=== PATIENT | female | born 1960 | race Caucasian/White ===

== ENCOUNTER 2016-12-27 13:37 | Inpatient (IN) | payer MEDICAID, OTHER ==
[2016-12-27 13:58] VITALS: BMI 33.2
--- NOTE | 2016-12-27 15:51 | C.PDOC ---
History Of Present Illness Patient is a 56 year old female, whose PMHx includes diabetes, presents to the Emergency Department for evaluation of sudden onset shortness of breath, and sharp chest pain across the anterior today. Patient states, "I felt my heart working harder than normal, and it was hard to breath" this morning when she was at the [employer]. Pt also admits to numbness to both legs. Pt denies having similar symptoms in the past. Otherwise, denies any headache, fever, chills, cough, back pain, nausea, vomiting, diarrhea, abdominal pain, lower extremity pain/swelling, or any other associated symptoms at this time. History translated from Faroese by son's friend. 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 Pt has history of recent travel from [place]. Time Seen by Provider: 12/27/16 14:37 Chief Complaint (Nursing): Shortness Of Breath History Per: Patient, Family History/Exam Limitations: language barrier (translated by son's friend) Onset/Duration Of Symptoms: Hrs Current Symptoms Are (Timing): Still Present Quality: "Pain" Associated Symptoms: Chest Pain. denies: Fever, Chills, Sweating, Bloody Cough , Productive Cough, Leg/Calf Pain, Ankle/Leg Swelling, Dizziness, Light- headedness, Anxiety, Tingling In Hands Or Face, Musle Spasms In Hands Or Feet Recent travel outside of the [place]: Yes Additional History Per: Family Past Medical History Reviewed: Historical Data, Nursing Documentation, Vital Signs Vital Signs: Last Vital Signs Temp 98.1 F 12/29/16 10:00 Pulse 84 12/29/16 13:38 Resp 35 H 12/29/16 11:20 BP 143/84 12/29/16 12:19 Pulse Ox 94 L 12/29/16 11:20 - Medical History PMH: Diabetes Family History: States: No Known Family Hx - Social History Hx Alcohol Use: No Hx Substance Use: No - Immunization History Hx Tetanus Toxoid Vaccination: No Hx Influenza Vaccination: No Hx Pneumococcal Vaccination: No Review Of Systems Except As Marked, All Systems Reviewed And Found Negative. Constitutional: Negative for: Fever, Chills Cardiovascular: Positive for: Chest Pain. Negative for: Edema, Light Headedness Respiratory: Positive for: Shortness of Breath. Negative for: Cough, Hemoptysis , Sputum Gastrointestinal: Negative for: Nausea, Vomiting, Abdominal Pain, Diarrhea Genitourinary: Negative for: Dysuria, Frequency, Hematuria Musculoskeletal: Negative for: Neck Pain Skin: Negative for: Rash, Bruising Neurological: Positive for: Numbness (bilateral legs). Negative for: Weakness, Headache, Dizziness Physical Exam - Physical Exam Appears: Non-toxic, No Acute Distress, Other (visibly short of breath) Skin: Normal Color, Warm, Dry, No Rash Head: Atraumatic, Normacephalic Eye(s): bilateral: Normal Inspection, EOMI Oral Mucosa: Moist Neck: Normal ROM, Supple Chest: Symmetrical, No Tenderness Cardiovascular: Rhythm Regular, No Murmur Respiratory: No Accessory Muscle Use, Rales (throughout bilateral), No Rhonchi, No Wheezing Gastrointestinal/Abdominal: Soft, No Tenderness Extremity: Normal ROM, No Tenderness, Pedal Edema (+0.5 bilateral) Neurological/Psych: Oriented x3, Normal Speech, Normal Cognition ED Course And Treatment - Laboratory Results Result Diagrams: 12/29/16 07:01 12/29/16 07:01 ECG: Interpreted By Me, Viewed By Me ECG Rhythm: Atrial Fibrillation ECG Interpretation: No Acute Changes Interpretation Of ECG: No ST elevation or depression. Rate From EC (bpm) O2 Sat by Pulse Oximetry: 94 Critical Care Time - Critical Care Note Total Time (in mins): 55 Documented critical care: time excludes all time spent performing seperately billable procedures. Medical Decision Making Medical Decision Making: Impression: 56 y/o female presents with sudden onset of shortness of breath, and chest pain since this morning. Differential Diagnosis: Pneumonia, NM, CHF, vs. PE Plan: * Blood work * EKG * CXR * Reassess Patient with pulmonary congestion, A Fib, positive trops. Given ASA, Lovanox, Cardizem X 1 dose, Lasix, requested Vapotherm. Spoke with Cardiology donor specialist, Dr. Robbins who requested Lovanox, Lasix, Coreg PO , Echo in AM, possible Cath in AM, Progress note: On re-evaluation, patient is resting comfortably in bed. Oxygen saturation, and breath sounds have improved. Patient remains alert and oriented x 3. Disposition Discussed With : John Osborn Doctor Will See Patient In The: Hospital Counseled Patient/Family Regarding: Studies Performed - Disposition Disposition: HOSPITALIZED Disposition Time: 17:31 Condition: GUARDED - Clinical Impression Clinical Impression: Dyspnea, CHF (congestive heart failure), NSTEMI (non-ST elevated myocardial infarction) - Scribe Statement The provider has reviewed the documentation as recorded by the Vilmaibe Delia Osborn All medical record entries made by the Scribe were at my direction and personally dictated by me. I have reviewed the chart and agree that the record accurately reflects my personal performance of the history, physical exam, medical decision making, and the department course for this patient. I have also personally directed, reviewed, and agree with the discharge instructions and disposition. Decision To Admit - Pt Status Changed To: Hospital Disposition Of: Inpatient - Admit Certification Admit to Inpatient:: After my assessment, the patient will require hospitalization for at least two midnights. This is because of the severity of symptoms shown, intensity of services needed, and/or the medical risk in this patient being treated as an outpatient. - InPatient: Physician Admission Certification: I certify that this patient requires 2 or more midnights of care for the following reason:: NSTEMI - . Bed Request Type: Telemetry Admitting Physician: Dwayne Soler Patient Diagnosis: Dyspnea, CHF (congestive heart failure), NSTEMI (non-ST elevated myocardial infarction)
[2016-12-27 16:05] LABS: BASO % 0.3 % (0.0-2.0); EOS # 0.1 K/uL (0.0-0.7); EOS % 0.9 % (0.0-4.0); LYMPH # 3.4 K/uL (1.0-4.3); LYMPH % 27.5 % (20.0-40.0); MEAN CELL VOLUME 86.7 fL (81.0-99.0); MEAN CORPUSCULAR HEMOGLOBIN 29.3 pg (27.0-31.0); MEAN CORPUSCULAR HGB CONC 33.8 g/dL (33.0-37.0); MEAN PLATELET VOLUME 9.6 fL (7.2-11.7); MONO # 0.6 K/uL (0.0-0.8); MONO % 4.4 % (0.0-10.0); RED CELL DISTRIBUTION WIDTH 14.3 % (11.5-14.5); WHITE BLOOD COUNT 12.5 K/uL (4.8-10.8)
[2016-12-27 16:15] LABS: CHLORIDE 102 mmol/L (98-107); SODIUM 138 mmol/L (132-148)
[2016-12-27 16:16] LABS: POTASSIUM 4.1 mmol/L (3.6-5.2)
[2016-12-27 16:18] LABS: ALB/GLOB RATIO 0.9 (1.0-2.1); ALKALINE PHOSPHATASE 88 U/L (38-126); AST/SGOT 29 U/L (14-36); BILIRUBIN,TOTAL 0.8 mg/dL (0.2-1.3); BLOOD UREA NITROGEN 11 mg/dL (7-17); CARBON DIOXIDE 20 mmol/L (22-30); GFR AFRICAN-AMERICAN > 60; GLUCOSE,RANDOM 215 mg/dL (65-105); TOTAL PROTEIN 7.9 g/dL (6.3-8.3)
[2016-12-27 16:19] LABS: ALT/SGPT 47 U/L (9-52); CALCIUM 9.7 mg/dl (8.6-10.4)
[2016-12-27 16:37] LABS: VENOUS BLOOD GAS BASE EXCESS -1.3 mmol/L (0.0-2.0); VENOUS BLOOD GAS PCO2 40 mmHg (40-60); VENOUS BLOOD PH 7.38 (7.32-7.43)
[2016-12-27] MEDS ORDERED: Enoxaparin 40 mg Syringe SC STA (17:04)
[2016-12-27] MEDS ORDERED: Enoxaparin 80 mg Syringe SC ONE (17:30)
--- NOTE | 2016-12-27 17:56 | RAD ---
PROCEDURE: CHEST RADIOGRAPH, 1 VIEW HISTORY: SOB COMPARISON: None available. FINDINGS: LUNGS: Moderate pulmonary vascular congestion at the mid and lower portion of the lungs. Findings suspicious for mild pulmonary edema. The differential diagnosis includes less likely bilateral lower lobe infectious process. PLEURA: There is blunting of both costophrenic angles. CARDIOVASCULAR: The cardiac silhouette is enlarged. OSSEOUS STRUCTURES: No significant abnormalities. VISUALIZED UPPER ABDOMEN: Normal. OTHER FINDINGS: None. IMPRESSION: Findings suspicious for mild pulmonary edema. Correlate clinically for CHF. Baseline portable chest x-ray.
--- NOTE | 2016-12-27 18:08 | CP.PCM.HP ---
History of Present Illness - History of Present Illness History of Present Illness: Medicine Note for Dr. Soler CC: SOB HPI: 56 F with PMHx of NIDM, presents to the ED with SOB and sharp chest pain. As per son she started to have this pain early this morning when she was at [employer]. She felt that her heart was racing faster. She denied any previous symptoms of this. Patient just returned from recent travel from [place]. Her chest pain and SOB became so severe she was brought to the ED. Admitted to SOB, chest pain, nausea, diaphoresis, weakness, decrease in sensation. Denied fever, chills, headache, abdominal pain, v/d/c, or urinary symptoms. In ED: CBC, EKG, EDUARDO, CXR - were ordered. Patient was in Atrial Fibrillation on EKG: @ 120BPM, with positive troponins, and elevated BNP. Patient was given ASA, Lovanox, Cardizem X 1 dose, Lasix, requested Vapotherm. Dr. Robbins called. Orders placed for Lovenox, Lasix, Coreg PO, Echo in AM, possible Cath in AM. PMHx: NIDM PSHx: Denied Meds: Metformin All: NKDA SHx: Denied x 3 FHx: Unremarkable PMD: None Present on Admission - Present on Admission Any Indicators Present on Admission: No Past Patient History - Past Social History Smoking Status: Never Smoked - ENDOCRINE/METABOLIC Hx Diabetes Mellitus Type 2: Yes - PSYCHIATRIC Hx Substance Use: No - SURGICAL HISTORY Hx Surgeries: Yes - ANESTHESIA Hx Anesthesia: Yes Hx Anesthesia Reactions: No Meds Allergies/Adverse Reactions: Allergies Allergy/AdvReac Type Severity Reaction Status Date / Time No Known Allergies Allergy Verified 12/27/16 13:56 Physical Exam - Constitutional Appears: Toxic, No Acute Distress - Head Exam Head Exam: NORMAL INSPECTION, NORMOCEPHALIC - Eye Exam Eye Exam: EOMI, Normal appearance, PERRL Pupil Exam: NORMAL ACCOMODATION - ENT Exam ENT Exam: Mucous Membranes Dry - Respiratory Exam Respiratory Exam: Rales, NORMAL BREATHING PATTERN - Cardiovascular Exam Cardiovascular Exam: Tachycardia, Irregular Rhythm - GI/Abdominal Exam GI & Abdominal Exam: Normal Bowel Sounds, Soft. absent: Distended, Tenderness - Extremities Exam Extremities exam: Positive for: normal inspection, pedal edema, pedal pulses present. Negative for: tenderness - Neurological Exam Neurological exam: Alert, CN II-XII Intact, Oriented x3 - Psychiatric Exam Psychiatric exam: Anxious, Normal Affect, Normal Mood - Skin Skin Exam: Diaphoretic, Warm Results - Vital Signs Recent Vital Signs: Last Vital Signs Temp 99.3 F 12/27/16 16:33 Pulse 115 H 12/27/16 17:38 Resp 26 H 12/27/16 17:51 BP 119/65 12/27/16 17:38 Pulse Ox 97 12/27/16 17:51 - Labs Result Diagrams: 12/27/16 15:40 12/27/16 16:12 Assessment & Plan - Assessment and Plan (Free Text) Plan: New Onset Atrial Fibrillation * EKG: Atrial Fibrillation @ 120BPM, was given ASA, Lovenox, Cardizem 10mg IVP x1 dose, and Lasix * Patient started on Therapeutic Lovenox 80units SC Q12H * Cardizem drip 3mls/hr * F/U TSH, T4 NSTEMI * EKG: Atrial Fibrillation @ 120BPM, no ST elevations * 1st Troponin 0.1340, F/U EDUARDO x2, EKG x2 * Therapeutic Lovenox 80units SC Q12H * ASA 81mg PO daily, Crestor 20mg PO QHS * Cardiology consulted- Dr. Robbins - help appreciated * Pending Cardiac Cath * F/U Lipid Panel New Onset CHF * BNP: 1530 * Lasix 20mg IVP BID * F/U AM CXR PA/Lateral * F/U ECHO Cardiac Cath Hx of DM * Accuchecks * ISS-medium * Diabetic Diet with 2grm Na, fluid restriction * F/U HBGA1C Prophylactic Measures * GI PPX: 40mg PO daily * DVT PPX: SCDs, Lovenox 80units SC Q12H * HHD, NPO tonight for possible cardiac cath tomorrow DW Cy Chaudhari DO, PGY-1
[2016-12-27 21:14] LABS: T4 9.57 ug/dL (5.5-11.0)
[2016-12-27 21:28] LABS: THYROID STIMULATING HORMONE 1.01 mIU/L (0.46-4.68)
[2016-12-27] MEDS: (Novolin R) Insulin Human Regular 100 units/ml vial SC SCH (23:03)
[2016-12-28] MEDS: Enoxaparin 80 mg Syringe SC SCH ×3 (04:04→23:00)
[2016-12-28 08:04] LABS: BASO % 0.3 % (0.0-2.0); EOS # 0.1 K/uL (0.0-0.7); EOS % 1.3 % (0.0-4.0); HEMATOCRIT 39.5 % (34.0-47.0); LYMPH # 2.7 K/uL (1.0-4.3); LYMPH % 31.8 % (20.0-40.0); MEAN CORPUSCULAR HEMOGLOBIN 29.3 pg (27.0-31.0); MEAN CORPUSCULAR HGB CONC 34.1 g/dL (33.0-37.0); MEAN PLATELET VOLUME 9.1 fL (7.2-11.7); MONO # 0.4 K/uL (0.0-0.8); MONO % 4.9 % (0.0-10.0); NRBC % 0.1 % (0.0-2.0); RED CELL DISTRIBUTION WIDTH 14.3 % (11.5-14.5); WHITE BLOOD COUNT 8.5 K/uL (4.8-10.8)
[2016-12-28] MEDS: (Novolin R) Insulin Human Regular 100 units/ml vial SC SCH ×4 (08:25→23:00)
[2016-12-28 08:28] LABS: CHLORIDE 102 mmol/L (98-107); POTASSIUM 3.5 mmol/L (3.6-5.2); SODIUM 137 mmol/L (132-148)
[2016-12-28 08:30] LABS: ALB/GLOB RATIO 0.9 (1.0-2.1); AST/SGOT 23 U/L (14-36); BILIRUBIN,TOTAL 0.9 mg/dL (0.2-1.3); CARBON DIOXIDE 26 mmol/L (22-30); CHOLESTEROL 170 mg/dL (0-199); GFR AFRICAN-AMERICAN > 60; TOTAL PROTEIN 7.2 g/dL (6.3-8.3)
[2016-12-28 08:31] LABS: ALKALINE PHOSPHATASE 83 U/L (38-126); ALT/SGPT 45 U/L (9-52); BLOOD UREA NITROGEN 11 mg/dL (7-17); CALCIUM 9.4 mg/dl (8.6-10.4); GLUCOSE,RANDOM 159 mg/dL (65-105); MAGNESIUM 1.6 mg/dL (1.6-2.3); PHOSPHOROUS 4.3 mg/dL (2.5-4.5)
[2016-12-28] MEDS: Pantoprazole 40 mg EC Tab PO SCH (10:09)
--- NOTE | 2016-12-28 10:45 | CP.PCM.PN ---
Subjective - Date & Time of Evaluation Date of Evaluation: 12/28/16 Time of Evaluation: 10:39 - Subjective Subjective: POST CATH NOTE Proc: LHC Cor arteriogram LV gram Prelim Results LM - normal LAD - 50% mid - LAD LCx - 30% mid - Cx RCA - dominant vessel; 40% prox-PDA; 60% distal PDA LVgram EF =70% no gradient no MR IMP: Non-obstructive CAD nL LV systolic function Plan: Medical therapy w/ ASA, statins. beta-blockers Objective - Vital Signs/Intake and Output Vital Signs (last 24 hours): Temp Pulse Resp BP Pulse Ox 97.0 F L 128 H 20 128/87 96 12/28/16 08:39 12/28/16 08:39 12/28/16 08:39 12/28/16 10:10 12/28/16 08:39 Intake and Output: 12/28/16 12/28/16 06:59 18:59 Intake Total 21 Balance 21 - Medications Medications: Current Medications Aspirin (Aspirin Chewable) 81 mg PO DAILY [facility] Last Admin: 12/28/16 10:09 Dose: 81 mg Enoxaparin Sodium (Lovenox) 80 mg SC Q12 [facility] Last Admin: 12/28/16 10:09 Dose: 80 mg Furosemide (Lasix) 20 mg IVP BID [facility] Last Admin: 12/28/16 10:10 Dose: 20 mg Diltiazem HCl 125 mg/ Sodium (Chloride) 125 mls @ 3 mls/hr IV .Q24H [facility] PRN Reason: 3 MG/HR Last Admin: 12/27/16 19:07 Dose: 3 mls/hr Insulin Human Regular (Novolin R) 0 unit SC ACHS [facility] PRN Reason: Protocol Last Admin: 12/28/16 08:25 Dose: 1 unit Pantoprazole Sodium (Protonix Ec Tab) 40 mg PO DAILY [facility] Last Admin: 12/28/16 10:09 Dose: 40 mg Rosuvastatin Calcium (Crestor) 20 mg PO HS [facility] Last Admin: 12/27/16 23:02 Dose: 20 mg - Labs Labs: 12/28/16 07:53 12/28/16 07:53
[2016-12-28] MEDS ORDERED: Metoprolol 1 mg/ml Inj IVP ONE ×2 (10:47→12:10)
--- NOTE | 2016-12-28 12:54 | RAD ---
HISTORY: CHF, pulm edema COMPARISON: Comparison made with prior study 12/29/2016 TECHNIQUE: Chest PA and lateral FINDINGS: LUNGS: Persistent mild but slightly improved pulmonary vascular congestion and bibasilar atelectasis and/or infiltrates. PLEURA: No significant pleural effusion identified. No pneumothorax apparent. CARDIOVASCULAR: Heart size is unchanged. OSSEOUS STRUCTURES: No significant abnormalities. VISUALIZED UPPER ABDOMEN: Normal. OTHER FINDINGS: None. IMPRESSION: Persistent mild but slightly improved pulmonary vascular congestion and bibasilar atelectasis and/or infiltrates.
[2016-12-28] MEDS ORDERED: Tramadol 25 mg PO PRN (16:36)
--- NOTE | 2016-12-28 20:35 | CP.PCM.PN ---
Subjective - Date & Time of Evaluation Date of Evaluation: 12/28/16 Time of Evaluation: 20:33 - Subjective Subjective: PGY1 Note for Dr. Antonette Hamilton OMS-3 Translated HPI: Patient seen and examined at bedside. Doing well. Feels much better now that her heart rate has slowed down. Complaining of pain in her R. shoulder for several months to the point where she is unable to use it. Family at bedside concerend about well being of patient. Had extensive conversation with patient and family about the causes of her condition and how the medicine would effectively help her. Explained in detail the findings of the cardiac cath. Denies N/V/CP/SOB/F/Chills. Objective - Vital Signs/Intake and Output Vital Signs (last 24 hours): Temp Pulse Resp BP Pulse Ox 98.5 F 83 20 100/60 95 12/28/16 18:54 12/28/16 18:54 12/28/16 18:54 12/28/16 18:54 12/28/16 18:54 Intake and Output: 12/28/16 12/29/16 18:59 06:59 Intake Total 281 Output Total 0 Balance 281 - Medications Medications: Current Medications Aspirin (Aspirin Chewable) 81 mg PO DAILY [facility] Last Admin: 12/28/16 10:09 Dose: 81 mg Diltiazem HCl (Cardizem) 60 mg PO Q6 [facility] Enoxaparin Sodium (Lovenox) 80 mg SC Q12 [facility] Last Admin: 12/28/16 10:09 Dose: 80 mg Furosemide (Lasix) 20 mg IVP BID [facility] Last Admin: 12/28/16 10:10 Dose: 20 mg Diltiazem HCl 125 mg/ Sodium (Chloride) 125 mls @ 5 mls/hr IV .Q24H [facility] PRN Reason: 5 MG/HR Last Admin: 12/28/16 20:05 Dose: 5 mls/hr Insulin Human Regular (Novolin R) 0 unit SC ACHS [facility] PRN Reason: Protocol Last Admin: 12/28/16 17:53 Dose: 3 unit Metoprolol Tartrate (Lopressor) 5 mg IVP Q4 PRN PRN Reason: Heart rate Pantoprazole Sodium (Protonix Ec Tab) 40 mg PO DAILY [facility] Last Admin: 12/28/16 10:09 Dose: 40 mg Pneumococcal Polyvalent Vaccine (Pneumovax 23 Vaccine) 0.5 ml IM .ONCE ONE Stop: 12/29/16 10:01 Rosuvastatin Calcium (Crestor) 20 mg PO HS [facility] Last Admin: 12/27/16 23:02 Dose: 20 mg Tramadol HCl (Ultram) 25 mg PO Q8 [facility] - Labs Labs: 12/28/16 07:53 12/28/16 07:53 - Constitutional Appears: Well, Non-toxic, No Acute Distress - Head Exam Head Exam: ATRAUMATIC, NORMAL INSPECTION - Eye Exam Eye Exam: EOMI - ENT Exam ENT Exam: Mucous Membranes Moist - Respiratory Exam Respiratory Exam: Clear to Ausculation Bilateral - Cardiovascular Exam Cardiovascular Exam: Tachycardia, Irregular Rhythm - GI/Abdominal Exam GI & Abdominal Exam: Soft, Normal Bowel Sounds. absent: Distended, Tenderness - Extremities Exam Extremities Exam: absent: Calf Tenderness, Joint Swelling - Neurological Exam Neurological Exam: Alert, Awake, Oriented x3 - Psychiatric Exam Psychiatric exam: Normal Affect, Normal Mood - Skin Skin Exam: Dry, Intact, Normal Color, Warm Assessment and Plan - Assessment and Plan (Free Text) Assessment: New Onset Atrial Fibrillation * EKG: Atrial Fibrillation @ 120BPM, was given ASA, Lovenox, Cardizem 10mg IVP x1 dose, and Lasix * Patient started on Therapeutic Lovenox 80units SC Q12H - F/U Cards reccs for oral anticoag * Cardizem drip 3mls/hr - changed to 10mls/hr and then again to 15mls/hr. Heart rate was controlled in the 80s. Started Oral Cardizem 60mg PO Q6 and instructed the nursing team as well as the night staff to decrease the drip while maintaining BP and a HR above 50 * TSH - 1.01 * T4 - 9.57 NSTEMI * EKG: Atrial Fibrillation @ 120BPM, no ST elevations * 1st Troponin 0.1340, F/U EDUARDO x2, EKG x2 * Therapeutic Lovenox 80units SC Q12H * ASA 81mg PO daily, Crestor 20mg PO QHS * Cardiology consulted- Dr. Robbins - medical tx - ASA, Statin, BB * Cardiac Cath - non obstructive CAD, normal LV systolic function * Lipid Panel * TG - 121 * Cholesterol - 170 * LDL - 119 * HDL - 34 New Onset CHF * BNP: 1530 * Lasix 20mg IVP BID * CXR 12/28 - Improved vascular congestion * Cardiac Cath - non obstructive CAD, normal LV systolic function Hx of DM * Accuchecks * ISS-medium * Diabetic Diet with 2grm Na, fluid restriction * HBGA1C - 8.8 R. Shoulder Pain * Shoulder Xray - F/U * Tramadol 25mg Q8 * Ortho (Chuck) consulted - F/U reccs * PT consulted Prophylactic Measures * GI PPX: 40mg PO daily * DVT PPX: SCDs, Lovenox 80units SC Q12H * HHD
--- NOTE | 2016-12-28 20:45 | CARD ---
APPROVED REPORT EKG Measurement Heart [id number] <Conclusion> Atrial fibrillation with rapid ventricular response Rightward axis Low voltage QRS Abnormal ECG
--- NOTE | 2016-12-28 20:47 | CARD ---
APPROVED REPORT EKG Measurement Heart [id number] <Conclusion> Atrial fibrillation with moderate to rapid ventricular response Septal infarct, age undetermined T wave abnormality, consider inferior ischemia Abnormal ECG
[2016-12-28] MEDS ORDERED: Potassium Chloride 20 mEq ER Tab PO STA (21:44)
[2016-12-28] MEDS: Tramadol 25 mg PO SCH (23:00)
--- NOTE | 2016-12-29 00:17 | CARD ---
APPROVED REPORT EXAM: Two-dimensional and M-mode echocardiogram with Doppler and color Doppler. Other Information Quality : GoodRhythm : Atrial Fibrillation INDICATION Chest Pain Congestive Heart Failure M-Mode DIMENSIONS RVDd1.08 (2.1-3.2cm)Left Atrium (MM)3.82 (2.5-4.0cm) IVSd0.87 (0.7-1.1cm)Aortic Root2.29 (2.2-3.7cm) LVDd4.10 (4.0-5.6cm)Aortic Cusp Exc.1.32 (1.5-2.0cm) PWd0.73 (0.7-1.1cm)FS (%) 51 % LVDs2.01 (2.0-3.8cm)LVEF (%)83 (>50%) Aortic Valve AoV Peak Pqiicspv116.9cm/sAoV VTI45.8cmAO Peak GR.30mmHg LVOT Peak Ddfckfjb486.3cm/sLVOT VTI15.85cmAO Mean GR.15mmHg AI P 1/2 [id number] Mitral Valve MV E Sjrqyubs527.8cm/sMV E Peak Gr.31mmHgMV E Mean Gr.16mmHg MV IOA492qoJ/A ratio0.0MVA (PHT)1.66cm2 TDI E/Lateral E'0.0E/Medial E'0.0 Tricuspid Valve TR Peak Vxwxtsqz508vk/sTR Peak Gr.67bzIbASLS12ckJt LEFT VENTRICLE The left ventricle is normal size. There is normal left ventricular wall thickness. Left ventricle systolic function is normal with Ejection Fraction of 70%. There is normal LV segmental wall motion. No left ventricle thrombus noted on this study. RIGHT VENTRICLE The right ventricle is normal size. The right ventricular systolic function is normal. ATRIA The left atrium is moderately dilated on 2D. The right atrium is moderately dilated on 2D. AORTIC VALVE The aortic valve is mildly to moderately sclerotic. There is mild to moderate aortic regurgitation. There is mild to moderate valvular aortic stenosis. Aortic valve area was not calculated. Maximum pressure gradient is 30 mmHg and mean pressure gradient is 15 mmHg. MITRAL VALVE Mitral annular calcification is moderate to severe. There is no evidence of mitral valve prolapse. There is mild mitral valve stenosis. Calculated mitral valve area is 1.6 cm2 with maximum pressure gradient of 31 mmHg and mean pressure gradient of 16 mmHg. Mitral regurgitation is moderate to severe. TRICUSPID VALVE There is moderate to severe tricuspid regurgitation. Right ventricular systolic pressure is estimated at greater than 60 mmHg. There is moderate-severe pulmonary hypertension. There is no tricuspid valve stenosis. PULMONIC VALVE The pulmonic valve is not well visualized. There is moderate pulmonic valvular regurgitation. GREAT VESSELS The aortic root is normal in size. The IVC is normal in size and collapses<50% with inspiration. PERICARDIAL EFFUSION There is no pericardial effusion. There is moderate left pleural effusion. <Conclusion> The left ventricle is normal size. Left ventricle systolic function is normal with Ejection Fraction of 70%. The right ventricle is normal size. The right ventricular systolic function is normal. The left atrium is moderately dilated on 2D. The right atrium is moderately dilated on 2D. There is mild to moderate valvular aortic stenosis. There is mild to moderate aortic regurgitation. There is mild mitral valve stenosis. Calculated mitral valve area is 1.6 cm2 with maximum pressure gradient of 31 mmHg and mean pressure gradient of 16 mmHg. Mitral regurgitation is moderate to severe. There is moderate to severe tricuspid regurgitation. There is moderate pulmonic valvular regurgitation. There is moderate left pleural effusion.
[2016-12-29] MEDS: Tramadol 25 mg PO SCH ×3 (05:23→21:56)
[2016-12-29] MEDS ORDERED: guaiFENesin DM 200 mg-20 mg/10 ml UD PO PRN (05:44)
[2016-12-29 07:13] LABS: BASO % 0.4 % (0.0-2.0); EOS # 0.1 K/uL (0.0-0.7); EOS % 1.3 % (0.0-4.0); HEMATOCRIT 37.9 % (34.0-47.0); LYMPH # 3.7 K/uL (1.0-4.3); LYMPH % 36.4 % (20.0-40.0); MEAN CELL VOLUME 86.2 fL (81.0-99.0); MEAN CORPUSCULAR HEMOGLOBIN 29.5 pg (27.0-31.0); MEAN CORPUSCULAR HGB CONC 34.3 g/dL (33.0-37.0); MEAN PLATELET VOLUME 9.1 fL (7.2-11.7); MONO # 0.6 K/uL (0.0-0.8); MONO % 5.5 % (0.0-10.0); NRBC % 0.1 % (0.0-2.0); RED CELL DISTRIBUTION WIDTH 14.4 % (11.5-14.5); WHITE BLOOD COUNT 10.1 K/uL (4.8-10.8)
[2016-12-29 07:46] LABS: CHLORIDE 102 mmol/L (98-107); SODIUM 136 mmol/L (132-148)
[2016-12-29 07:47] LABS: POTASSIUM 3.9 mmol/L (3.6-5.2)
[2016-12-29 07:48] LABS: GFR AFRICAN-AMERICAN > 60
[2016-12-29 07:49] LABS: ALB/GLOB RATIO 0.9 (1.0-2.1); ALKALINE PHOSPHATASE 78 U/L (38-126); ALT/SGPT 39 U/L (9-52); AST/SGOT 17 U/L (14-36); BILIRUBIN,TOTAL 0.9 mg/dL (0.2-1.3); BLOOD UREA NITROGEN 11 mg/dL (7-17); CARBON DIOXIDE 25 mmol/L (22-30); GLUCOSE,RANDOM 172 mg/dL (65-105); PHOSPHOROUS 3.9 mg/dL (2.5-4.5)
[2016-12-29 07:50] LABS: MAGNESIUM 1.6 mg/dL (1.6-2.3)
--- NOTE | 2016-12-29 08:12 | CP.PCM.CON ---
History of Present Illness - History of Present Illness History of Present Illness: CC chest pain SOB HPI 56 F with PMHx of NIDM, presents to the ED with SOB and sharp chest pain. As per son she started to have this pain early this morning when she was at religious. She felt that her heart was racing faster. She denied any previous symptoms of this. Patient just returned from recent travel from [place]. Her chest pain and SOB became so severe she was brought to the ED. Admitted to SOB, chest pain, nausea, diaphoresis, weakness, decrease in sensation. Denied fever, chills, headache, abdominal pain, v/d/c, or urinary symptoms. In ED: CBC, EKG, EDUARDO, CXR - were ordered. Patient was in Atrial Fibrillation on EKG: @ 120BPM, with positive troponins, and elevated BNP. Patient was given ASA, Lovanox, Cardizem X 1 dose, Lasix, Orders placed for Lovenox, Lasix, Coreg PO, Echo in AM, possible Cath in am. Review of Systems - Cardiovascular Cardiovascular: Dyspnea, Irregular Heart Rhythm - Respiratory Respiratory: Dyspnea on Exertion Past Patient History - Past Medical History & Family History Past Medical History?: Yes - Past Social History Smoking Status: Never Smoked - CARDIAC Hx Cardiac Disorders: No - PULMONARY Hx Respiratory Disorders: No - NEUROLOGICAL Hx Neurological Disorder: No - HEENT Hx HEENT Problems: No - RENAL Hx Chronic Kidney Disease: No - ENDOCRINE/METABOLIC Hx Endocrine Disorders: Yes Hx Diabetes Mellitus Type 2: Yes - HEMATOLOGICAL/ONCOLOGICAL Hx Blood Disorders: No - INTEGUMENTARY Hx Dermatological Problems: No - MUSCULOSKELETAL/RHEUMATOLOGICAL Hx Musculoskeletal Disorders: No Hx Falls: No - GASTROINTESTINAL Hx Gastrointestinal Disorders: No - GENITOURINARY/GYNECOLOGICAL Hx Genitourinary Disorders: No - PSYCHIATRIC Hx Psychophysiologic Disorder: No Hx Substance Use: No - SURGICAL HISTORY Hx Surgeries: Yes Other/Comment: Gallbladder removal - ANESTHESIA Hx Anesthesia: Yes Hx Anesthesia Reactions: No Meds Allergies/Adverse Reactions: Allergies Allergy/AdvReac Type Severity Reaction Status Date / Time No Known Allergies Allergy Verified 12/27/16 13:56 - Medications Medications: Current Medications Aspirin (Aspirin Chewable) 81 mg PO DAILY [facility] Last Admin: 12/28/16 10:09 Dose: 81 mg Diltiazem HCl (Cardizem) 60 mg PO Q6 [facility] Last Admin: 08/15/17 05:23 Dose: 60 mg Enoxaparin Sodium (Lovenox) 80 mg SC Q12H [facility] Furosemide (Lasix) 20 mg IVP BID [facility] Last Admin: 12/28/16 18:00 Dose: Not Given Guaifenesin/Dextromethorphan (Robitussin Dm) 10 ml PO Q4H PRN PRN Reason: Cough and congestion Last Admin: 12/29/16 06:14 Dose: 10 ml Diltiazem HCl 125 mg/ Sodium (Chloride) 125 mls @ 5 mls/hr IV .Q24H [facility] PRN Reason: 5 MG/HR Last Admin: 12/28/16 20:05 Dose: 5 mls/hr Insulin Human Regular (Novolin R) 0 unit SC ACHS [facility] PRN Reason: Protocol Last Admin: 12/28/16 23:00 Dose: Not Given Metoprolol Tartrate (Lopressor) 5 mg IVP Q4 PRN PRN Reason: Heart rate Pantoprazole Sodium (Protonix Ec Tab) 40 mg PO DAILY [facility] Last Admin: 12/28/16 10:09 Dose: 40 mg Pneumococcal Polyvalent Vaccine (Pneumovax 23 Vaccine) 0.5 ml IM .ONCE ONE Stop: 12/29/16 10:01 Rosuvastatin Calcium (Crestor) 20 mg PO HS [facility] Last Admin: 12/28/16 23:00 Dose: 20 mg Tramadol HCl (Ultram) 25 mg PO Q8 [facility] Last Admin: 12/29/16 05:23 Dose: 25 mg Physical Exam - Constitutional Appears: Chronically Ill - Head Exam Head Exam: NORMAL INSPECTION - Eye Exam Eye Exam: absent: Scleral icterus - ENT Exam ENT Exam: Mucous Membranes Dry - Neck Exam Neck exam: Positive for: Full Rom. Negative for: Lymphadenopathy - Respiratory Exam Respiratory Exam: Decreased Breath Sounds, Rales, Rhonchi - Cardiovascular Exam Cardiovascular Exam: Irregular Rhythm - GI/Abdominal Exam GI & Abdominal Exam: Normal Bowel Sounds. absent: Organomegaly - Extremities Exam Extremities exam: Positive for: calf tenderness, pedal edema - Neurological Exam Neurological exam: Alert, Oriented x3 Results - Vital Signs Recent Vital Signs: Last Vital Signs Temp 98.5 F 12/28/16 23:50 Pulse 90 12/29/16 05:20 Resp 20 12/28/16 23:50 BP 103/67 12/29/16 05:20 Pulse Ox 97 12/28/16 23:50 - Labs Result Diagrams: 12/29/16 07:01 12/29/16 07:01 Labs: Laboratory Results - last 24 hr 12/28/16 12/28/16 12/28/16 07:53 07:53 11:41 WBC RBC Hgb Hct MCV MCH MCHC RDW Plt Count MPV Neut % (Auto) Lymph % (Auto) Ogle % (Auto) Eos % (Auto) Baso % (Auto) Neut # Lymph # Ogle # Eos # Baso # Sodium 137 Potassium 3.5 L Chloride 102 Carbon Dioxide 26 Anion Gap 13 BUN 11 Creatinine 0.6 L Est GFR ( Amer) > 60 Est GFR (Non-Af Amer) > 60 POC Glucose (mg/dL) 254 H Random Glucose 159 H Hemoglobin A1c 8.7 H Calcium 9.4 Phosphorus 4.3 Magnesium 1.6 Total Bilirubin 0.9 AST 23 ALT 45 Alkaline Phosphatase 83 Total Protein 7.2 Albumin 3.5 Globulin 3.8 Albumin/Globulin Ratio 0.9 L Triglycerides 121 Cholesterol 170 LDL Cholesterol Direct 119 HDL Cholesterol 34 12/28/16 12/28/16 12/29/16 16:57 21:42 06:19 WBC RBC Hgb Hct MCV MCH MCHC RDW Plt Count MPV Neut % (Auto) Lymph % (Auto) Ogle % (Auto) Eos % (Auto) Baso % (Auto) Neut # Lymph # Ogle # Eos # Baso # Sodium Potassium Chloride Carbon Dioxide Anion Gap BUN Creatinine Est GFR ( Amer) Est GFR (Non-Af Amer) POC Glucose (mg/dL) 246 H 162 H 195 H Random Glucose Hemoglobin A1c Calcium Phosphorus Magnesium Total Bilirubin AST ALT Alkaline Phosphatase Total Protein Albumin Globulin Albumin/Globulin Ratio Triglycerides Cholesterol LDL Cholesterol Direct HDL Cholesterol 12/29/16 12/29/16 07:01 07:01 WBC 10.1 RBC 4.39 Hgb 13.0 Hct 37.9 MCV 86.2 MCH 29.5 MCHC 34.3 RDW 14.4 Plt Count 183 MPV 9.1 Neut % (Auto) 56.4 Lymph % (Auto) 36.4 Ogle % (Auto) 5.5 Eos % (Auto) 1.3 Baso % (Auto) 0.4 Neut # 5.7 Lymph # 3.7 Ogle # 0.6 Eos # 0.1 Baso # 0.0 Sodium 136 Potassium 3.9 Chloride 102 Carbon Dioxide 25 Anion Gap 13 BUN 11 Creatinine 0.7 Est GFR ( Amer) > 60 Est GFR (Non-Af Amer) > 60 POC Glucose (mg/dL) Random Glucose 172 H Hemoglobin A1c Calcium 9.0 Phosphorus 3.9 Magnesium 1.6 Total Bilirubin 0.9 AST 17 ALT 39 Alkaline Phosphatase 78 Total Protein 7.0 Albumin 3.3 L Globulin 3.7 Albumin/Globulin Ratio 0.9 L Triglycerides Cholesterol LDL Cholesterol Direct HDL Cholesterol Assessment & Plan - Assessment and Plan (Free Text) Assessment: ACS CHF Atrial fibrillation Plan: Lasix, Carvedilol, ARB's Control HR Anticoagulation Cardiac cath when more stable - Date & Time Date: 12/28/16 Time: 08:24
[2016-12-29] MEDS: (Novolin R) Insulin Human Regular 100 units/ml vial SC SCH ×3 (08:25→21:58)
--- NOTE | 2016-12-29 08:28 | CP.PCM.PN ---
Subjective - Date & Time of Evaluation Date of Evaluation: 12/29/16 Time of Evaluation: 08:25 - Subjective Subjective: still sob with bibasal rales O2 sat 88% Objective - Vital Signs/Intake and Output Vital Signs (last 24 hours): Temp Pulse Resp BP Pulse Ox 98.5 F 90 20 103/67 97 12/28/16 23:50 12/29/16 05:20 12/28/16 23:50 12/29/16 05:20 12/28/16 23:50 Intake and Output: 12/29/16 12/29/16 06:59 18:59 Intake Total 440 Balance 440 - Medications Medications: Current Medications Aspirin (Aspirin Chewable) 81 mg PO DAILY [facility] Last Admin: 12/28/16 10:09 Dose: 81 mg Diltiazem HCl (Cardizem) 60 mg PO Q6 [facility] Last Admin: 12/29/16 05:23 Dose: 60 mg Enoxaparin Sodium (Lovenox) 80 mg SC Q12H [facility] Furosemide (Lasix) 20 mg IVP BID [facility] Last Admin: 12/28/16 18:00 Dose: Not Given Guaifenesin/Dextromethorphan (Robitussin Dm) 10 ml PO Q4H PRN PRN Reason: Cough and congestion Last Admin: 12/29/16 06:14 Dose: 10 ml Diltiazem HCl 125 mg/ Sodium (Chloride) 125 mls @ 5 mls/hr IV .Q24H [facility] PRN Reason: 5 MG/HR Last Admin: 12/28/16 20:05 Dose: 5 mls/hr Insulin Human Regular (Novolin R) 0 unit SC ACHS [facility] PRN Reason: Protocol Last Admin: 12/28/16 23:00 Dose: Not Given Metoprolol Tartrate (Lopressor) 5 mg IVP Q4 PRN PRN Reason: Heart rate Pantoprazole Sodium (Protonix Ec Tab) 40 mg PO DAILY [facility] Last Admin: 12/28/16 10:09 Dose: 40 mg Pneumococcal Polyvalent Vaccine (Pneumovax 23 Vaccine) 0.5 ml IM .ONCE ONE Stop: 12/29/16 10:01 Rosuvastatin Calcium (Crestor) 20 mg PO HS [facility] Last Admin: 12/28/16 23:00 Dose: 20 mg Tramadol HCl (Ultram) 25 mg PO Q8 [facility] Last Admin: 12/29/16 05:23 Dose: 25 mg - Labs Labs: 12/29/16 07:01 12/29/16 07:01 - Constitutional Appears: In Acute Distress - Head Exam Head Exam: ATRAUMATIC - Eye Exam Eye Exam: absent: Scleral icterus - ENT Exam ENT Exam: Mucous Membranes Moist - Cardiovascular Exam Cardiovascular Exam: Irregular Rhythm - GI/Abdominal Exam GI & Abdominal Exam: Soft. absent: Tenderness - Extremities Exam Extremities Exam: Pedal Edema. absent: Full ROM - Neurological Exam Neurological Exam: Alert, Oriented x3 Assessment and Plan - Assessment and Plan (Free Text) Assessment: CHF Atrial fibrillation CAD Hx of Rheumatic heart disease Plan: Cancel cardiac cath Admit to ICU We will re-schedule once patient is stable Case discussed w/ ICU attending Dr Vega Needs bi-pap Dr Jacob to follow patient from hereon
[2016-12-29] MEDS: Magnesium Sulfate 1 gm in D5W 1 GM/100 ML BAG IVPB SCH ×2 (09:08→11:16)
[2016-12-29 09:26] LABS: ABG ALLEN TEST POS; ARTERIAL BLOOD GAS MODE BiPAP; ARTERIAL BLOOD HGB O2 SAT 96.9 % (95.0-98.0); CARBOXYHEMOGLOBIN 1.7 % (0.5-1.5); DRAW SITE LR; HHB 0.2 % (0.0-5.0); METHEMOGLOBIN 1.2 % (0.0-3.0)
--- NOTE | 2016-12-29 09:32 | RAD ---
HISTORY: chf COMPARISON: 12/28/2016 FINDINGS: LUNGS: The prior pulmonary venous congestion has increased. Bibasilar coalescent [place] E edema probable. Prominent underlying infiltrates and/or atelectasis not excluded. The opacity appears most dense in the left infrahilar location PLEURA: Small bilateral pleural effusions suggested. No pneumothorax noted CARDIOVASCULAR: Cardiomegaly -further increased since prior exam OSSEOUS STRUCTURES: Probable generalized osteopenia VISUALIZED UPPER ABDOMEN: Normal. OTHER FINDINGS: None. IMPRESSION: Interval increased CHF. Bibasilar interval increase coalescent pulmonary edema . Concomitant patchy bibasilar infiltrates here not excluded
[2016-12-29] MEDS ORDERED: Pneumococcal 23-Valent Vaccine IM ONE (10:00)
--- NOTE | 2016-12-29 10:34 | RAD ---
PROCEDURE: Radiographs of the Right Shoulder HISTORY: Shoulder pain COMPARISON: Chest x-ray performed 12/29/16 FINDINGS: BONES: No acute displaced fracture. The distal clavicle and underlying ribs appear intact. JOINTS: No acute dislocation. SOFT TISSUES: Soft tissues appear unremarkable. No evidence of radiopaque foreign body. Partially imaged lung lewis demonstrate moderate pulmonary venous congestion. IMPRESSION: No acute displaced fracture or dislocation evident. If symptoms persist or if there is continued clinical concern, x-ray follow-up in 7-10 days should be considered. Partially imaged moderate pulmonary venous congestion.
--- NOTE | 2016-12-29 11:55 | CP.PCM.CON ---
<Arabella Bess - Last Filed: 12/29/16 12:55> History of Present Illness - History of Present Illness History of Present Illness: CC: Short of breath, fast heart beat 1 week 56 year old female with medical history of DM, presents with SOB, cough with white sputum, fast heart rate and chest pain for one week. Her daughter is present and providing the translation and history. Patient had similar mild symptoms prior to 1 week ago, but they worsened over the past week. Patient reports her symptoms are worse in the morning. On the floor, patient was found to have new onset a-fib, new onset CHF, elevated troponins, severe mitral regurgitation and moderate aortic stenosis. Patient was scheduled for a cardiac cath today, but it was canceled due to SOB, bilateral rales, and oxygen saturation of 88%. Patient currently reports having shortness of breath ( slightly improving), cough with white phlegm, fast heart beat, no appetite, and right should pain (for 1 month after carrying a bag on that shoulder while traveling here from [place]). Patient denies chest pain, abdominal pain, fevers, nausea, vomiting, diarrhea, and dysuria. PMD: denies PMHx: DM SurgHx: Cholecystectomy 2012, Hernia repair (both surgeries in [place]) FamHx: Grandfather- DM SocHx: denies tobacco, alcohol, and drug use; Lives with daughter in apartment while visiting from [place]. Allegies: NKDA Medication: Metformin 500mg PO daily (Actuarial Consultant: [id number]) Review of Systems - Constitutional Constitutional: Fatigue. absent: Fever - Cardiovascular Cardiovascular: Dyspnea, Palpitations, Rapid Heart Rate. absent: Chest Pain - Respiratory Respiratory: Cough, Dyspnea, Excessive Mucous Production (white sputum) - Gastrointestinal Gastrointestinal: absent: Abdominal Pain, Constipation, Diarrhea, Nausea, Vomiting - Genitourinary Genitourinary: absent: Dysuria - Musculoskeletal Musculoskeletal: Other (right shoulder pain) - Psychiatric Psychiatric: Anxiety - Endocrine Endocrine: Fatigue, Palpitations Past Patient History - Past Medical History & Family History Past Medical History?: Yes - Past Social History Smoking Status: Never Smoked - CARDIAC Hx Cardiac Disorders: No - PULMONARY Hx Respiratory Disorders: No - NEUROLOGICAL Hx Neurological Disorder: No - HEENT Hx HEENT Problems: No - RENAL Hx Chronic Kidney Disease: No - ENDOCRINE/METABOLIC Hx Endocrine Disorders: Yes Hx Diabetes Mellitus Type 2: Yes - HEMATOLOGICAL/ONCOLOGICAL Hx Blood Disorders: No - INTEGUMENTARY Hx Dermatological Problems: No - MUSCULOSKELETAL/RHEUMATOLOGICAL Hx Musculoskeletal Disorders: No Hx Falls: No - GASTROINTESTINAL Hx Gastrointestinal Disorders: No - GENITOURINARY/GYNECOLOGICAL Hx Genitourinary Disorders: No - PSYCHIATRIC Hx Psychophysiologic Disorder: No Hx Substance Use: No - SURGICAL HISTORY Hx Surgeries: Yes Other/Comment: Gallbladder removal - ANESTHESIA Hx Anesthesia: Yes Hx Anesthesia Reactions: No Meds Allergies/Adverse Reactions: Allergies Allergy/AdvReac Type Severity Reaction Status Date / Time No Known Allergies Allergy Verified 12/27/16 13:56 - Medications Medications: Current Medications Aspirin (Aspirin Chewable) 81 mg PO DAILY [facility] Last Admin: 12/28/16 10:09 Dose: 81 mg Enoxaparin Sodium (Lovenox) 80 mg SC Q12H [facility] Furosemide (Lasix) 20 mg IVP BID [facility] Last Admin: 12/29/16 09:08 Dose: 20 mg Guaifenesin/Dextromethorphan (Robitussin Dm) 10 ml PO Q4H PRN PRN Reason: Cough and congestion Last Admin: 12/29/16 06:14 Dose: 10 ml Diltiazem HCl 125 mg/ Sodium (Chloride) 125 mls @ 5 mls/hr IV .Q24H [facility]; 5 MG/ HR PRN Reason: Protocol Insulin Human Regular (Novolin R) 0 unit SC ACHS [facility] PRN Reason: Protocol Last Admin: 12/29/16 08:25 Dose: Not Given Metoprolol Tartrate (Lopressor) 5 mg IVP Q4 PRN PRN Reason: Heart rate Pantoprazole Sodium (Protonix Ec Tab) 40 mg PO DAILY [facility] Last Admin: 12/28/16 10:09 Dose: 40 mg Rosuvastatin Calcium (Crestor) 20 mg PO HS [facility] Last Admin: 12/28/16 23:00 Dose: 20 mg Tramadol HCl (Ultram) 25 mg PO Q8 [facility] Last Admin: 12/29/16 05:23 Dose: 25 mg Physical Exam - Head Exam Head Exam: ATRAUMATIC, NORMAL INSPECTION - Eye Exam Eye Exam: EOMI, Normal appearance - ENT Exam ENT Exam: Mucous Membranes Moist - Respiratory Exam Respiratory Exam: Rales (B/L), Respiratory Distress. absent: Clear to Auscultation Bilateral, Rhonchi, Wheezes - Cardiovascular Exam Cardiovascular Exam: Tachycardia, Irregular Rhythm, +S1, +S2. absent: REGULAR RHYTHM - GI/Abdominal Exam GI & Abdominal Exam: Distended, Normal Bowel Sounds, Soft. absent: Tenderness - Extremities Exam Extremities exam: Positive for: pedal edema. Negative for: normal inspection - Neurological Exam Neurological exam: Alert, Oriented x3 - Psychiatric Exam Psychiatric exam: Anxious - Skin Skin Exam: Dry, Intact, Normal Color, Warm Results - Vital Signs Recent Vital Signs: Last Vital Signs Temp 98.1 F 12/29/16 10:00 Pulse 130 H 12/29/16 11:20 Resp 35 H 12/29/16 11:20 BP 138/86 12/29/16 10:41 Pulse Ox 94 L 12/29/16 11:20 - Labs Result Diagrams: 12/29/16 07:01 12/29/16 07:01 Labs: Laboratory Results - last 24 hr 12/28/16 12/28/16 12/28/16 07:53 16:57 21:42 WBC RBC Hgb Hct MCV MCH MCHC RDW Plt Count MPV Neut % (Auto) Lymph % (Auto) Desha % (Auto) Eos % (Auto) Baso % (Auto) Neut # Lymph # Desha # Eos # Baso # Puncture Site pCO2 pO2 HCO3 ABG pH ABG Total CO2 ABG O2 Saturation ABG Base Excess ABG Hemoglobin ABG Carboxyhemoglobin POC ABG HHb (Measured) ABG Methemoglobin Addi Test A-a O2 Difference Respiratory Index Hgb O2 Saturation Vent Mode FiO2 Inspiratory BiPAP Expiratory BiPAP Sodium Potassium Chloride Carbon Dioxide Anion Gap BUN Creatinine Est GFR ( Amer) Est GFR (Non-Af Amer) POC Glucose (mg/dL) 246 H 162 H Random Glucose Hemoglobin A1c 8.7 H Calcium Phosphorus Magnesium Total Bilirubin AST ALT Alkaline Phosphatase Total Protein Albumin Globulin Albumin/Globulin Ratio 12/29/16 12/29/16 12/29/16 06:19 07:01 07:01 WBC 10.1 RBC 4.39 Hgb 13.0 Hct 37.9 MCV 86.2 MCH 29.5 MCHC 34.3 RDW 14.4 Plt Count 183 MPV 9.1 Neut % (Auto) 56.4 Lymph % (Auto) 36.4 Desha % (Auto) 5.5 Eos % (Auto) 1.3 Baso % (Auto) 0.4 Neut # 5.7 Lymph # 3.7 Desha # 0.6 Eos # 0.1 Baso # 0.0 Puncture Site pCO2 pO2 HCO3 ABG pH ABG Total CO2 ABG O2 Saturation ABG Base Excess ABG Hemoglobin ABG Carboxyhemoglobin POC ABG HHb (Measured) ABG Methemoglobin Addi Test A-a O2 Difference Respiratory Index Hgb O2 Saturation Vent Mode FiO2 Inspiratory BiPAP Expiratory BiPAP Sodium 136 Potassium 3.9 Chloride 102 Carbon Dioxide 25 Anion Gap 13 BUN 11 Creatinine 0.7 Est GFR ( Amer) > 60 Est GFR (Non-Af Amer) > 60 POC Glucose (mg/dL) 195 H Random Glucose 172 H Hemoglobin A1c Calcium 9.0 Phosphorus 3.9 Magnesium 1.6 Total Bilirubin 0.9 AST 17 ALT 39 Alkaline Phosphatase 78 Total Protein 7.0 Albumin 3.3 L Globulin 3.7 Albumin/Globulin Ratio 0.9 L 12/29/16 09:22 WBC RBC Hgb Hct MCV MCH MCHC RDW Plt Count MPV Neut % (Auto) Lymph % (Auto) Desha % (Auto) Eos % (Auto) Baso % (Auto) Neut # Lymph # Desha # Eos # Baso # Puncture Site Lr pCO2 34 L pO2 202 H HCO3 23.6 ABG pH 7.42 ABG Total CO2 23.1 ABG O2 Saturation 99.8 H ABG Base Excess -1.7 ABG Hemoglobin 14.4 ABG Carboxyhemoglobin 1.7 H POC ABG HHb (Measured) 0.2 ABG Methemoglobin 1.2 Addi Test Pos A-a O2 Difference 469.0 Respiratory Index 2.3 Hgb O2 Saturation 96.9 Vent Mode Bipap FiO2 100.0 Inspiratory BiPAP 10 Expiratory BiPAP 5 Sodium Potassium Chloride Carbon Dioxide Anion Gap BUN Creatinine Est GFR ( Amer) Est GFR (Non-Af Amer) POC Glucose (mg/dL) Random Glucose Hemoglobin A1c Calcium Phosphorus Magnesium Total Bilirubin AST ALT Alkaline Phosphatase Total Protein Albumin Globulin Albumin/Globulin Ratio Assessment & Plan (1) Dyspnea Assessment and Plan: 56 year old female with medical history of DM, presents with SOB, cough with white sputum, fast heart rate and chest pain for one week. Patient has new onset of A-Fib & CHF, severe MR and moderate Aortic stenosis. Patient was went for cardiac cath but was canceled due to hypoxia and dyspnea. Patient was transferred to the ICU. Patient is on BiPAP, cardizem drip, lopressor, lasix, crestor and ASA. Continue to monitor. Neuro: Alert, oriented; patient is anxious Pulm: Hypoxic, Dyspnea likely secondary to CHF exacerbation - BiPAP, setting- /5, FiO2 50% - O2 saturation has increased to low 90s - CXR: Bibasilar interval increase coalescent pulmonary edema; patchy bibasilar infiltrates; increased CHF - Robitussin for cough CV: - New onset CHF - New onset A-fib - Elevated troponins, NSTEMI --> cardiac cath canceled today due to hypoxia and SOB; - Cardizem drip - Lasix 20mg - Lopressor 5mg - Crestor 20mg, ASA 81mg - CXR: increased CHF, Pulmonary edema - ECHO: EF 83%; RA and LA moderately dilated; mild to mod aortic stenosis and regurgitation; mild mitral valve stenosis; moderate to severe mitral regurg; mod -to-severe tricuspid regurg, pulmonic valvular regurg, and moderate left pleural effusion. - Cardiology consulted: Dr. Jacob, help appreciated Endo: Hx of DM - Monitor blood glucose - ISS GI: no acute issues - Protonix Heme: no acute issues Renal: no acute issues MSK: Right shoulder pain - Xray: no acute displaced fracture or dislocation - Tramadol for pain ID: no acute issues - Procalcitonin: 0.05 Prophylaxis: - DVT: Lovenox 80mg sc - GI: protonix Status: Acute <Javier Vega - Last Filed: 12/29/16 17:06> Meds - Medications Medications: Current Medications Aspirin (Aspirin Chewable) 81 mg PO DAILY [facility] Last Admin: 12/29/16 12:22 Dose: Not Given Diltiazem HCl (Cardizem) 60 mg PO Q6 [facility] Enoxaparin Sodium (Lovenox) 80 mg SC Q12H [facility] Furosemide (Lasix) 20 mg IVP BID [facility] Last Admin: 12/29/16 09:08 Dose: 20 mg Guaifenesin/Dextromethorphan (Robitussin Dm) 10 ml PO Q4H PRN PRN Reason: Cough and congestion Last Admin: 12/29/16 06:14 Dose: 10 ml Diltiazem HCl 125 mg/ Sodium (Chloride) 125 mls @ 5 mls/hr IV .Q24H [facility]; 5 MG/ HR PRN Reason: Protocol Last Admin: 12/29/16 12:22 Dose: 5 mg/hr, 5 mls/hr Insulin Human Regular (Novolin R) 0 unit SC ACHS [facility] PRN Reason: Protocol Last Admin: 12/29/16 12:20 Dose: Not Given Metoprolol Tartrate (Lopressor) 5 mg IVP Q4 PRN PRN Reason: Heart rate Last Admin: 12/29/16 12:19 Dose: 5 mg Pantoprazole Sodium (Protonix Ec Tab) 40 mg PO DAILY [facility] Last Admin: 12/29/16 12:23 Dose: Not Given Rosuvastatin Calcium (Crestor) 20 mg PO HS [facility] Last Admin: 12/28/16 23:00 Dose: 20 mg Tramadol HCl (Ultram) 25 mg PO Q8 [facility] Last Admin: 12/29/16 05:23 Dose: 25 mg Results - Vital Signs Recent Vital Signs: Last Vital Signs Temp 99.0 F 12/29/16 12:00 Pulse 111 H 12/29/16 17:00 Resp 27 H 12/29/16 17:00 BP 119/75 12/29/16 16:41 Pulse Ox 95 12/29/16 17:00 - Labs Result Diagrams: 12/29/16 07:01 12/29/16 07:01 Labs: Laboratory Results - last 24 hr 12/28/16 12/28/16 12/29/16 07:53 21:42 06:19 WBC RBC Hgb Hct MCV MCH MCHC RDW Plt Count MPV Neut % (Auto) Lymph % (Auto) Desha % (Auto) Eos % (Auto) Baso % (Auto) Neut # Lymph # Desha # Eos # Baso # Puncture Site pCO2 pO2 HCO3 ABG pH ABG Total CO2 ABG O2 Saturation ABG Base Excess ABG Hemoglobin ABG Carboxyhemoglobin POC ABG HHb (Measured) ABG Methemoglobin Addi Test A-a O2 Difference Respiratory Index Hgb O2 Saturation Vent Mode FiO2 Inspiratory BiPAP Expiratory BiPAP Sodium Potassium Chloride Carbon Dioxide Anion Gap BUN Creatinine Est GFR ( Amer) Est GFR (Non-Af Amer) POC Glucose (mg/dL) 162 H 195 H Random Glucose Hemoglobin A1c 8.7 H Calcium Phosphorus Magnesium Total Bilirubin AST ALT Alkaline Phosphatase Troponin I Total Protein Albumin Globulin Albumin/Globulin Ratio Procalcitonin 12/29/16 12/29/16 12/29/16 07:01 07:01 09:22 WBC 10.1 RBC 4.39 Hgb 13.0 Hct 37.9 MCV 86.2 MCH 29.5 MCHC 34.3 RDW 14.4 Plt Count 183 MPV 9.1 Neut % (Auto) 56.4 Lymph % (Auto) 36.4 Desha % (Auto) 5.5 Eos % (Auto) 1.3 Baso % (Auto) 0.4 Neut # 5.7 Lymph # 3.7 Desha # 0.6 Eos # 0.1 Baso # 0.0 Puncture Site Lr pCO2 34 L pO2 202 H HCO3 23.6 ABG pH 7.42 ABG Total CO2 23.1 ABG O2 Saturation 99.8 H ABG Base Excess -1.7 ABG Hemoglobin 14.4 ABG Carboxyhemoglobin 1.7 H POC ABG HHb (Measured) 0.2 ABG Methemoglobin 1.2 Addi Test Pos A-a O2 Difference 469.0 Respiratory Index 2.3 Hgb O2 Saturation 96.9 Vent Mode Bipap FiO2 100.0 Inspiratory BiPAP 10 Expiratory BiPAP 5 Sodium 136 Potassium 3.9 Chloride 102 Carbon Dioxide 25 Anion Gap 13 BUN 11 Creatinine 0.7 Est GFR ( Amer) > 60 Est GFR (Non-Af Amer) > 60 POC Glucose (mg/dL) Random Glucose 172 H Hemoglobin A1c Calcium 9.0 Phosphorus 3.9 Magnesium 1.6 Total Bilirubin 0.9 AST 17 ALT 39 Alkaline Phosphatase 78 Troponin I Total Protein 7.0 Albumin 3.3 L Globulin 3.7 Albumin/Globulin Ratio 0.9 L Procalcitonin 12/29/16 12/29/16 12/29/16 11:27 15:16 16:13 WBC RBC Hgb Hct MCV MCH MCHC RDW Plt Count MPV Neut % (Auto) Lymph % (Auto) Desha % (Auto) Eos % (Auto) Baso % (Auto) Neut # Lymph # Desha # Eos # Baso # Puncture Site pCO2 pO2 HCO3 ABG pH ABG Total CO2 ABG O2 Saturation ABG Base Excess ABG Hemoglobin ABG Carboxyhemoglobin POC ABG HHb (Measured) ABG Methemoglobin Addi Test A-a O2 Difference Respiratory Index Hgb O2 Saturation Vent Mode FiO2 Inspiratory BiPAP Expiratory BiPAP Sodium Potassium Chloride Carbon Dioxide Anion Gap BUN Creatinine Est GFR ( Amer) Est GFR (Non-Af Amer) POC Glucose (mg/dL) 322 H Random Glucose Hemoglobin A1c Calcium Phosphorus Magnesium Total Bilirubin AST ALT Alkaline Phosphatase Troponin I 0.1280 H* Total Protein Albumin Globulin Albumin/Globulin Ratio Procalcitonin 0.05 L Attending/Attestation - Attestation I have personally seen and examined this patient.: Yes I have fully participated in the care of the patient.: Yes I have reviewed all pertinent clinical information: Yes Notes (Text): 12/29/16 17:05 Patient seen and examined 56-year-old female transferred to ICU for A. fib with rapid ventricular rate, shortness of breath and hypoxemia. Cardiac catheterization was canceled for above reason Patient started on Cardizem drip and BiPAP Continue Lasix Continue digoxin Follow-up chest x-ray and ABG
[2016-12-29] MEDS ORDERED: Digoxin 500 mcg/2ml (0.5 mg/2ml) Inj IVP ONE (12:03)
[2016-12-29] MEDS: Metoprolol 1 mg/ml Inj IVP PRN (12:19)
[2016-12-29] MEDS: Pantoprazole 40 mg EC Tab PO SCH (12:23)
--- NOTE | 2016-12-29 15:50 | CP.PCM.CON ---
History of Present Illness - History of Present Illness History of Present Illness: 56F complains of right shoulder pain x 1 month. She says she was pulling heavy suitcase in [place] when pain started. also complains of neck pain and shooting pain into shoulder. When asked about neck mass, says that been there since she was child. Denies numbness/tingling in RUE. Review of Systems - Review of Systems All systems: reviewed and no additional remarkable complaints except Past Patient History - Past Medical History & Family History Past Medical History?: Yes Past Family History: Reviewed and not pertinent - Past Social History Smoking Status: Never Smoked - CARDIAC Hx Cardiac Disorders: No - PULMONARY Hx Respiratory Disorders: No - NEUROLOGICAL Hx Neurological Disorder: No - HEENT Hx HEENT Problems: No - RENAL Hx Chronic Kidney Disease: No - ENDOCRINE/METABOLIC Hx Endocrine Disorders: Yes Hx Diabetes Mellitus Type 2: Yes - HEMATOLOGICAL/ONCOLOGICAL Hx Blood Disorders: No - INTEGUMENTARY Hx Dermatological Problems: No - MUSCULOSKELETAL/RHEUMATOLOGICAL Hx Musculoskeletal Disorders: No Hx Falls: No - GASTROINTESTINAL Hx Gastrointestinal Disorders: No - GENITOURINARY/GYNECOLOGICAL Hx Genitourinary Disorders: No - PSYCHIATRIC Hx Substance Use: No - SURGICAL HISTORY Hx Surgeries: Yes Other/Comment: Gallbladder removal - ANESTHESIA Hx Anesthesia: Yes Hx Anesthesia Reactions: No Meds Allergies/Adverse Reactions: Allergies Allergy/AdvReac Type Severity Reaction Status Date / Time No Known Allergies Allergy Verified 12/27/16 13:56 - Medications Medications: Current Medications Aspirin (Aspirin Chewable) 81 mg PO DAILY [facility] Last Admin: 12/29/16 12:22 Dose: Not Given Diltiazem HCl (Cardizem) 60 mg PO Q6 [facility] Enoxaparin Sodium (Lovenox) 80 mg SC Q12H [facility] Furosemide (Lasix) 20 mg IVP BID [facility] Last Admin: 12/29/16 09:08 Dose: 20 mg Guaifenesin/Dextromethorphan (Robitussin Dm) 10 ml PO Q4H PRN PRN Reason: Cough and congestion Last Admin: 12/29/16 06:14 Dose: 10 ml Diltiazem HCl 125 mg/ Sodium (Chloride) 125 mls @ 5 mls/hr IV .Q24H [facility]; 5 MG/ HR PRN Reason: Protocol Last Admin: 12/29/16 12:22 Dose: 5 mg/hr, 5 mls/hr Insulin Human Regular (Novolin R) 0 unit SC ACHS [facility] PRN Reason: Protocol Last Admin: 12/29/16 12:20 Dose: Not Given Metoprolol Tartrate (Lopressor) 5 mg IVP Q4 PRN PRN Reason: Heart rate Last Admin: 12/29/16 12:19 Dose: 5 mg Pantoprazole Sodium (Protonix Ec Tab) 40 mg PO DAILY [facility] Last Admin: 12/29/16 12:23 Dose: Not Given Rosuvastatin Calcium (Crestor) 20 mg PO HS [facility] Last Admin: 12/28/16 23:00 Dose: 20 mg Tramadol HCl (Ultram) 25 mg PO Q8 [facility] Last Admin: 12/29/16 05:23 Dose: 25 mg Physical Exam - Constitutional Appears: No Acute Distress - Head Exam Head Exam: ATRAUMATIC, NORMAL INSPECTION - Neck Exam Neck exam: Positive for: Full Rom Additional comments: approx 3cm round mobile soft mass on to right of cervical spinous process approx C6/7 minimal tenderness, no erythema, skin intact pain with ROM of neck, but mild - Respiratory Exam Respiratory Exam: NORMAL BREATHING PATTERN - Extremities Exam Additional comments: Active ROM right shoulder very limited actively, passive ROM almost full but mildly painful - Expanded Upper Extremities Exam Right Neuro motor exam: finger 2-5 abduction intact, thumb abduction, thumb IP flexion intact, thumb opposition intact, wrist extension intact Neurosensory exam: median nerve intact, radial nerve intact, ulnar nerve intact Vascular exam: radial pulse - Neurological Exam Neurological exam: Alert, Oriented x3 - Psychiatric Exam Psychiatric exam: Normal Affect, Normal Mood - Skin Skin Exam: Dry, Intact, Normal Color, Warm Results - Vital Signs Recent Vital Signs: Last Vital Signs Temp 98.1 F 12/29/16 10:00 Pulse 84 12/29/16 13:38 Resp 35 H 12/29/16 11:20 BP 143/84 12/29/16 12:19 Pulse Ox 94 L 12/29/16 14:58 - Labs Result Diagrams: 12/30/16 06:40 12/30/16 06:40 Labs: Laboratory Results - last 24 hr 12/28/16 12/28/16 12/28/16 07:53 16:57 21:42 WBC RBC Hgb Hct MCV MCH MCHC RDW Plt Count MPV Neut % (Auto) Lymph % (Auto) Becker % (Auto) Eos % (Auto) Baso % (Auto) Neut # Lymph # Becker # Eos # Baso # Puncture Site pCO2 pO2 HCO3 ABG pH ABG Total CO2 ABG O2 Saturation ABG Base Excess ABG Hemoglobin ABG Carboxyhemoglobin POC ABG HHb (Measured) ABG Methemoglobin Addi Test A-a O2 Difference Respiratory Index Hgb O2 Saturation Vent Mode FiO2 Inspiratory BiPAP Expiratory BiPAP Sodium Potassium Chloride Carbon Dioxide Anion Gap BUN Creatinine Est GFR ( Amer) Est GFR (Non-Af Amer) POC Glucose (mg/dL) 246 H 162 H Random Glucose Hemoglobin A1c 8.7 H Calcium Phosphorus Magnesium Total Bilirubin AST ALT Alkaline Phosphatase Total Protein Albumin Globulin Albumin/Globulin Ratio Procalcitonin 12/29/16 12/29/16 12/29/16 06:19 07:01 07:01 WBC 10.1 RBC 4.39 Hgb 13.0 Hct 37.9 MCV 86.2 MCH 29.5 MCHC 34.3 RDW 14.4 Plt Count 183 MPV 9.1 Neut % (Auto) 56.4 Lymph % (Auto) 36.4 Becker % (Auto) 5.5 Eos % (Auto) 1.3 Baso % (Auto) 0.4 Neut # 5.7 Lymph # 3.7 Becker # 0.6 Eos # 0.1 Baso # 0.0 Puncture Site pCO2 pO2 HCO3 ABG pH ABG Total CO2 ABG O2 Saturation ABG Base Excess ABG Hemoglobin ABG Carboxyhemoglobin POC ABG HHb (Measured) ABG Methemoglobin Addi Test A-a O2 Difference Respiratory Index Hgb O2 Saturation Vent Mode FiO2 Inspiratory BiPAP Expiratory BiPAP Sodium 136 Potassium 3.9 Chloride 102 Carbon Dioxide 25 Anion Gap 13 BUN 11 Creatinine 0.7 Est GFR ( Amer) > 60 Est GFR (Non-Af Amer) > 60 POC Glucose (mg/dL) 195 H Random Glucose 172 H Hemoglobin A1c Calcium 9.0 Phosphorus 3.9 Magnesium 1.6 Total Bilirubin 0.9 AST 17 ALT 39 Alkaline Phosphatase 78 Total Protein 7.0 Albumin 3.3 L Globulin 3.7 Albumin/Globulin Ratio 0.9 L Procalcitonin 12/29/16 12/29/16 09:22 11:27 WBC RBC Hgb Hct MCV MCH MCHC RDW Plt Count MPV Neut % (Auto) Lymph % (Auto) Becker % (Auto) Eos % (Auto) Baso % (Auto) Neut # Lymph # Becker # Eos # Baso # Puncture Site Lr pCO2 34 L pO2 202 H HCO3 23.6 ABG pH 7.42 ABG Total CO2 23.1 ABG O2 Saturation 99.8 H ABG Base Excess -1.7 ABG Hemoglobin 14.4 ABG Carboxyhemoglobin 1.7 H POC ABG HHb (Measured) 0.2 ABG Methemoglobin 1.2 Addi Test Pos A-a O2 Difference 469.0 Respiratory Index 2.3 Hgb O2 Saturation 96.9 Vent Mode Bipap FiO2 100.0 Inspiratory BiPAP 10 Expiratory BiPAP 5 Sodium Potassium Chloride Carbon Dioxide Anion Gap BUN Creatinine Est GFR ( Amer) Est GFR (Non-Af Amer) POC Glucose (mg/dL) Random Glucose Hemoglobin A1c Calcium Phosphorus Magnesium Total Bilirubin AST ALT Alkaline Phosphatase Total Protein Albumin Globulin Albumin/Globulin Ratio Procalcitonin 0.05 L - Impressions Impression: Patient Name / ID : SONIA AKERS / [id number] Exam Date : 12/29/2016 09:07:32 ( Approved ) Study Comment : Sex / Age : F / [id number] Creator : Sheela Mullen MD Dictator : Kitchen Lead : Watch Train Assembler : Sheela Mullen MD Approver2 : Report Date : 12/29/2016 10:28:54 My Comment : PROCEDURE: Radiographs of the Right Shoulder HISTORY: Shoulder pain COMPARISON: Chest x-ray performed 12/29/16 FINDINGS: BONES: No acute displaced fracture. The distal clavicle and underlying ribs appear intact. JOINTS: No acute dislocation. SOFT TISSUES: Soft tissues appear unremarkable. No evidence of radiopaque foreign body. Partially imaged lung lewis demonstrate moderate pulmonary venous congestion. IMPRESSION: No acute displaced fracture or dislocation evident. If symptoms persist or if there is continued clinical concern, x-ray follow-up in 7-10 days should be considered. Partially imaged moderate pulmonary venous congestion. Assessment & Plan (1) Right shoulder pain Assessment and Plan: r/o RC tear, tendinitis, cervical radiculopathy r/o lipoma shoulder xrays negative for fracture/dislocation cervical spine xrays will consider further imaging d/w Dr. Woods, agrees with above Status: Chronic Review of Systems - Review of Systems Constitutional: Negative for: Fever, Chills, Sweats ENT: Negative for: Ear Pain, Ear Discharge, Nose Pain, Nose Discharge, Nose Congestion, Mouth Pain, Mouth Swelling, Throat Pain, Throat Swelling, Other, UN Respiratory: Positive for: Shortness of Breath Cardiovascular: Positive for: Chest Pain Gastrointestinal: Negative for: Nausea, Vomiting Genitourinary: Negative for: Dysuria Musculoskeletal: Positive for: Shoulder Pain Skin: Negative for: Rash, Lesions, Jaundice, Bruising, Other Neurological: Negative for: Numbness - Medications/Allergies Allergies/Adverse Reactions: Allergies Allergy/AdvReac Type Severity Reaction Status Date / Time No Known Allergies Allergy Verified 12/27/16 13:56 Medications: Current Medications Aspirin (Aspirin Chewable) 81 mg PO DAILY [facility] Last Admin: 12/30/16 10:06 Dose: 81 mg Diltiazem HCl (Cardizem) 60 mg PO Q6 [facility] Last Admin: 12/30/16 05:59 Dose: Not Given Diltiazem HCl (Cardizem) 30 mg PO Q6H [facility] Enoxaparin Sodium (Lovenox) 80 mg SC Q12H [facility] Last Admin: 12/30/16 05:28 Dose: 80 mg Furosemide (Lasix) 20 mg IVP BID [facility] Last Admin: 12/30/16 10:07 Dose: 20 mg Guaifenesin/Dextromethorphan (Robitussin Dm) 10 ml PO Q4H PRN PRN Reason: Cough and congestion Last Admin: 12/29/16 06:14 Dose: 10 ml Diltiazem HCl 125 mg/ Sodium (Chloride) 125 mls @ 5 mls/hr IV .Q24H [facility]; 5 MG/ HR PRN Reason: Protocol Last Titration: 12/30/16 04:00 Dose: Infused Insulin Human Regular (Novolin R) 0 unit SC ACHS [facility] PRN Reason: Protocol Last Admin: 12/30/16 08:52 Dose: 3 unit Metoprolol Tartrate (Lopressor) 5 mg IVP Q4 PRN PRN Reason: Heart rate Last Admin: 12/29/16 12:19 Dose: 5 mg Pantoprazole Sodium (Protonix Ec Tab) 40 mg PO DAILY [facility] Last Admin: 12/30/16 10:06 Dose: 40 mg Rosuvastatin Calcium (Crestor) 20 mg PO HS [facility] Last Admin: 12/29/16 21:57 Dose: 20 mg Tramadol HCl (Ultram) 25 mg PO Q8 [facility] Last Admin: 12/30/16 06:26 Dose: 25 mg
--- NOTE | 2016-12-29 17:01 | RAD ---
PROCEDURE: Cervical spine dated 12/29/2016 The limited AP and lateral portable views of the cervical spine performed. Open-mouth view not performed. Additionally, there is partial obscuration of the C1 and C2 segments the due to a aligned the earring artifact. HISTORY: Pain. COMPARISON: None. FINDINGS: BONES: No definitive evidence of acute compression fractures nor retropulsed fragments. Minor multilevel fish-mouth endplate deformities. DISC SPACES: Disc space heights are relatively maintained. There may be some slight overgrowth of the uncovertebral facets. SOFT TISSUES: Normal. No prevertebral soft tissue swelling. OTHER FINDINGS: None. IMPRESSION: No evidence of acute fracture seen on this limited study. If symptoms persist or occult fracture suspected clinically, consider followup CT scan or MRI
--- NOTE | 2016-12-29 18:23 | CARD ---
APPROVED REPORT EKG Measurement Heart [id number] <Conclusion> Atrial fibrillation Rightward axis Abnormal ECG
[2016-12-29] MEDS: Enoxaparin 80 mg Syringe SC SCH (18:57)
--- NOTE | 2016-12-29 20:52 | CP.PCM.PN ---
Subjective - Date & Time of Evaluation Date of Evaluation: 12/29/16 Time of Evaluation: 20:49 - Subjective Subjective: PGY-[address] Whitman HPI: Patient was seen and examined at bedside. Yesterday I misinformed the patient that she did not need intervention for her heart condition. I told them today that cardiology planned to do a cardiac cath. When the patient was in the central lab technician she became tachypnic and tachycardic and they did not feel comfortable proceeding with the procedure. The patient was transferred to the ICU Objective - Vital Signs/Intake and Output Vital Signs (last 24 hours): Temp Pulse Resp BP Pulse Ox 98.7 F 106 H 18 133/74 94 L 12/29/16 16:00 12/29/16 18:20 12/29/16 18:20 12/29/16 18:58 12/29/16 18:20 Intake and Output: 12/29/16 12/30/16 18:59 06:59 Intake Total 545 Output Total 900 Balance -355 - Medications Medications: Current Medications Aspirin (Aspirin Chewable) 81 mg PO DAILY [facility] Last Admin: 12/29/16 12:22 Dose: Not Given Diltiazem HCl (Cardizem) 60 mg PO Q6 [facility] Last Admin: 12/29/16 18:58 Dose: 60 mg Enoxaparin Sodium (Lovenox) 80 mg SC Q12H [facility] Last Admin: 12/29/16 18:57 Dose: 80 mg Furosemide (Lasix) 20 mg IVP BID [facility] Last Admin: 12/29/16 18:58 Dose: 20 mg Guaifenesin/Dextromethorphan (Robitussin Dm) 10 ml PO Q4H PRN PRN Reason: Cough and congestion Last Admin: 12/29/16 06:14 Dose: 10 ml Diltiazem HCl 125 mg/ Sodium (Chloride) 125 mls @ 5 mls/hr IV .Q24H [facility]; 5 MG/ HR PRN Reason: Protocol Last Titration: 12/29/16 18:58 Dose: 0 mg/hr, 0 mls/hr Insulin Human Regular (Novolin R) 0 unit SC ACHS [facility] PRN Reason: Protocol Last Admin: 12/29/16 12:20 Dose: Not Given Metoprolol Tartrate (Lopressor) 5 mg IVP Q4 PRN PRN Reason: Heart rate Last Admin: 12/29/16 12:19 Dose: 5 mg Pantoprazole Sodium (Protonix Ec Tab) 40 mg PO DAILY [facility] [place] Last Admin: 12/29/16 12:23 Dose: Not Given Rosuvastatin Calcium (Crestor) 20 mg PO HS [facility] Last Admin: 12/28/16 23:00 Dose: 20 mg Tramadol HCl (Ultram) 25 mg PO Q8 [facility] Last Admin: 12/29/16 14:57 Dose: 25 mg - Labs Labs: 12/29/16 07:01 12/29/16 07:01 - Constitutional Appears: No Acute Distress - Eye Exam Eye Exam: EOMI - ENT Exam ENT Exam: Mucous Membranes Moist - Respiratory Exam Respiratory Exam: Clear to Ausculation Bilateral Additional comments: tachypnic - Cardiovascular Exam Cardiovascular Exam: Tachycardia, Irregular Rhythm - GI/Abdominal Exam GI & Abdominal Exam: Firm, Soft, Normal Bowel Sounds. absent: Tenderness - Neurological Exam Neurological Exam: Alert, Awake, Oriented x3 - Psychiatric Exam Psychiatric exam: Anxious, Normal Affect, Normal Mood - Skin Skin Exam: Dry, Intact, Normal Color, Warm Assessment and Plan - Assessment and Plan (Free Text) Assessment: New Onset Atrial Fibrillation * EKG: Atrial Fibrillation @ 120BPM, was given ASA, Lovenox, Cardizem 10mg IVP x1 dose, and Lasix * Patient started on Therapeutic Lovenox 80units SC Q12H * TSH - 1.01 * T4 - 9.57 NSTEMI * EKG: Atrial Fibrillation @ 120BPM, no ST elevations * 1st Troponin 0.1340, F/U EDUARDO x2, EKG x2 * Therapeutic Lovenox 80units SC Q12H * ASA 81mg PO daily, Crestor 20mg PO QHS * Cardiology consulted- Dr. Robbins * Lipid Panel * TG - 121 * Cholesterol - 170 * LDL - 119 * HDL - 34 New Onset CHF * BNP: 1530 * Lasix 20mg IVP BID * CXR 12/28 - Improved vascular congestion * Cardiac Cath - non obstructive CAD, normal LV systolic function Hx of DM * Accuchecks * ISS-medium * Diabetic Diet with 2grm Na, fluid restriction * HBGA1C - 8.8 R. Shoulder Pain * Shoulder Xray - F/U * Tramadol 25mg Q8 * Ortho (Chuck) consulted - F/U reccs * PT consulted Prophylactic Measures * GI PPX: 40mg PO daily * DVT PPX: SCDs, Lovenox 80units SC Q12H * HHD 12/29/16: Patient went for cardiac cath today but when she arrived she became tachycardic and tacypnic. The procedure was cancelled and she was transferred to the ICU where she was complaining of chest pain. We ordered serial trops and EKGs. We restarted the cardizem 60mg PO Q6, lasix 20mg once and Dig. Further management per ICU at this time
[2016-12-30] MEDS: Enoxaparin 80 mg Syringe SC SCH ×2 (05:28→16:33)
[2016-12-30] MEDS: Tramadol 25 mg PO SCH ×3 (06:26→22:51)
[2016-12-30 07:01] LABS: ALKALINE PHOSPHATASE 88 U/L (38-126); ALT/SGPT 25 U/L (9-52); AST/SGOT 27 U/L (14-36); BILIRUBIN,TOTAL 0.8 mg/dL (0.2-1.3); BLOOD UREA NITROGEN 13 mg/dL (7-17); CALCIUM 9.2 mg/dl (8.6-10.4); CARBON DIOXIDE 21 mmol/L (22-30); CHLORIDE 97 mmol/L (98-107); GFR AFRICAN-AMERICAN > 60; GLUCOSE,RANDOM 242 mg/dL (65-105); MAGNESIUM 1.9 mg/dL (1.6-2.3); PHOSPHOROUS 3.4 mg/dL (2.5-4.5); POTASSIUM 4.1 mmol/L (3.6-5.2); SODIUM 130 mmol/L (132-148); TOTAL PROTEIN 7.3 g/dL (6.3-8.3)
[2016-12-30 07:02] LABS: BASO # 0.1 K/uL (0.0-0.2); BASO % 0.4 % (0.0-2.0); EOS # 0.1 K/uL (0.0-0.7); EOS % 0.6 % (0.0-4.0); HEMATOCRIT 39.6 % (34.0-47.0); LYMPH # 2.5 K/uL (1.0-4.3); LYMPH % 20.6 % (20.0-40.0); MEAN CELL VOLUME 86.2 fL (81.0-99.0); MEAN CORPUSCULAR HGB CONC 33.6 g/dL (33.0-37.0); MEAN PLATELET VOLUME 9.3 fL (7.2-11.7); MONO # 0.6 K/uL (0.0-0.8); MONO % 5.1 % (0.0-10.0); NRBC % 0.1 % (0.0-2.0); RED CELL DISTRIBUTION WIDTH 14.2 % (11.5-14.5); WHITE BLOOD COUNT 12.3 K/uL (4.8-10.8)
--- NOTE | 2016-12-30 08:37 | RAD ---
HISTORY: sob COMPARISON: 12/29/2016 FINDINGS: LUNGS: Perihilar opacities are largely resolved. No new opacity. Linear scar/atelectasis at right base. PLEURA: No significant pleural effusion identified, no pneumothorax apparent. CARDIOVASCULAR: Mild congestive change, diminished compared to prior examination. OSSEOUS STRUCTURES: No significant abnormalities. VISUALIZED UPPER ABDOMEN: Normal. OTHER FINDINGS: None. IMPRESSION: Mild congestive change. Almost completely resolved perihilar opacities. Likely resolving pulmonary edema.
[2016-12-30] MEDS: (Novolin R) Insulin Human Regular 100 units/ml vial SC SCH ×4 (08:52→22:41)
[2016-12-30] MEDS: Pantoprazole 40 mg EC Tab PO SCH (10:06)
[2016-12-30] MEDS: Metoprolol 1 mg/ml Inj IVP PRN (10:45)
--- NOTE | 2016-12-30 10:52 | CP.PCM.PN ---
Subjective - Date & Time of Evaluation Date of Evaluation: 12/30/16 Time of Evaluation: 10:49 - Subjective Subjective: Patient complains of continued right shoulder pain. She says it is getting better. Daughter at bedside. translation device used. Clarified that neck mass is present since patient was child and has been the same. Says pain started approx 1 month ago after pulling heavy suitcase. Denies numbness/tingling, says she has shoulder pain when moving shoulder. Seh says that she only has neck pain when she is sleeping on that side, then she has neck and shoulder pain. Objective - Vital Signs/Intake and Output Vital Signs (last 24 hours): Temp Pulse Resp BP Pulse Ox 98.2 F 104 H 25 H 107/62 96 12/30/16 04:00 12/30/16 07:41 12/30/16 07:41 12/30/16 10:07 12/30/16 07:41 Intake and Output: 12/30/16 12/30/16 06:59 18:59 Intake Total 275 15 Output Total 1150 250 Balance -875 -235 - Medications Medications: Current Medications Aspirin (Aspirin Chewable) 81 mg PO DAILY [facility] Last Admin: 12/30/16 10:06 Dose: 81 mg Diltiazem HCl (Cardizem) 60 mg PO Q6 [facility] Last Admin: 12/30/16 05:59 Dose: Not Given Diltiazem HCl (Cardizem) 30 mg PO Q6H [facility] Enoxaparin Sodium (Lovenox) 80 mg SC Q12H [facility] Last Admin: 12/30/16 05:28 Dose: 80 mg Furosemide (Lasix) 20 mg IVP BID [facility] Last Admin: 12/30/16 10:07 Dose: 20 mg Guaifenesin/Dextromethorphan (Robitussin Dm) 10 ml PO Q4H PRN PRN Reason: Cough and congestion Last Admin: 12/29/16 06:14 Dose: 10 ml Diltiazem HCl 125 mg/ Sodium (Chloride) 125 mls @ 5 mls/hr IV .Q24H [facility]; 5 MG/ HR PRN Reason: Protocol Last Titration: 12/30/16 04:00 Dose: Infused Insulin Human Regular (Novolin R) 0 unit SC ACHS [facility] PRN Reason: Protocol Last Admin: 12/30/16 08:52 Dose: 3 unit Metoprolol Tartrate (Lopressor) 5 mg IVP Q4 PRN PRN Reason: Heart rate Last Admin: 12/30/16 10:45 Dose: 5 mg Pantoprazole Sodium (Protonix Ec Tab) 40 mg PO DAILY [facility] Last Admin: 12/30/16 10:06 Dose: 40 mg Rosuvastatin Calcium (Crestor) 20 mg PO HS [facility] Last Admin: 12/29/16 21:57 Dose: 20 mg Tramadol HCl (Ultram) 25 mg PO Q8 [facility] Last Admin: 12/30/16 06:26 Dose: 25 mg - Labs Labs: 12/30/16 06:40 12/30/16 06:40 - Constitutional Appears: Well, No Acute Distress - Head Exam Head Exam: ATRAUMATIC, NORMAL INSPECTION - Neck Exam Additional comments: neck mass 3cm, minimally tender, no change, suggestiive clinically of lipoma - Respiratory Exam Respiratory Exam: NORMAL BREATHING PATTERN - Cardiovascular Exam Additional comments: +radial pulse - Extremities Exam Additional comments: Limited active ROM right shoulder. NVID. sensation intact to rad/med/ulnar nerve. full ROM fingers/wrist/elbow. 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 Woods as outpatient, informed patient that she will need PT as outpatient as well d/w Dr. Woods, agrees with above Status: Chronic
--- NOTE | 2016-12-30 15:21 | CP.CCUPN ---
<Arabella BessPeggy - Last Filed: 12/30/16 15:19> CCU Subjective - Physician Review Subjective (Free Text): Patient was seen and examined at bedside in the morning. Patient was resting comfortably in bed in no acute distress. She reports feeling better today, less short of breath. Patient states she has mild chest pain, headache, and leg pain. Patient denies abdominal pain, nausea, vomiting, diarrhea, and dizziness. 12/30/16 15:19 CCU Objective - Vital Signs / Intake & Output Vital Signs (Last 4 hours): Vital Signs Temp Pulse Resp BP Pulse Ox 12/30/16 14:41 76 25 H 110/63 98 12/30/16 13:41 72 29 H 109/59 L 95 12/30/16 13:17 75 28 H 108/63 94 L 12/30/16 12:41 76 26 H 99/51 L 96 12/30/16 12:00 98.2 F 12/30/16 11:41 69 27 H 106/55 L 98 Intake and Output (Last 8hrs): Intake & Output 12/30/16 12/30/16 12/30/16 06:59 14:59 22:59 Intake Total 145 550 Output Total 700 950 Balance -555 -400 Intake: IV 50 Intake, IV Amount 95 80 Left Forearm 95 80 Oral 470 Output: Urine 700 950 Urine, Voided 700 950 Other: # Voids Urine, Voided 1 1 # Bowel Movements 0 - Physical Exam Head: Positive for: Atraumatic, Normocephalic Extroacular Muscles: Positive for: EOMI Mouth: Positive for: Moist Mucous Membranes Respiratory/Chest: Positive for: Decreased Breath Sounds, Rales. Negative for: Clear to Auscultation Cardiovascular: Positive for: Normal S1, S2, Peripheal Pulses Present, Tachycardic Abdomen: Positive for: Distention, Normal Bowel Sounds. Negative for: Tenderness Upper Extremity: Positive for: Normal Inspection. Negative for: Edema Lower Extremity: Positive for: Edema. Negative for: Normal Inspection Skin: Positive for: Warm, Dry, Normal Color Psychiatric: Positive for: Alert, Oriented x 3, Normal Affect, Normal Mood - Medications Active Medications: Active Medications Generic Name Dose Route Start Last Admin Trade Name Freq PRN Reason Stop Dose Admin Aspirin 81 mg 12/28/16 10:00 08/16/17 10:06 Aspirin Chewable PO 81 mg DAILY MAIA Administration Diltiazem HCl 60 mg 12/29/16 18:00 12/30/16 05:59 Cardizem PO Not Given Q6 MAIA Diltiazem HCl 30 mg 12/30/16 10:45 12/30/16 10:52 Cardizem PO 30 mg Q6H MAIA Administration Enoxaparin Sodium 80 mg 12/29/16 05:00 12/30/16 05:28 Lovenox SC 80 mg Q12H MAIA Administration Furosemide 20 mg 12/28/16 10:00 12/30/16 10:07 Lasix IVP 20 mg BID MAIA Administration Guaifenesin/Dextromethorphan 10 ml 12/29/16 05:44 12/29/16 06:14 Robitussin Dm PO 10 ml Q4H PRN Administration Cough and congestion Diltiazem HCl 125 mg/ Sodium 125 mls @ 5 mls/hr 12/29/16 09:45 12/30/16 04:00 Chloride IV Infused .Q24H MAIA Titration Protocol 5 MG/HR Insulin Human Regular 0 unit 12/27/16 22:00 12/30/16 11:16 Novolin R SC 6 unit ACHS MAIA Administration Protocol Metoprolol Tartrate 5 mg 12/28/16 13:28 12/30/16 10:45 Lopressor IVP 5 mg Q4 PRN Administration Heart rate Pantoprazole Sodium 40 mg 12/28/16 10:00 12/30/16 10:06 Protonix Ec Tab PO 40 mg DAILY MAIA Administration Rosuvastatin Calcium 20 mg 12/27/16 22:00 12/29/16 21:57 Crestor PO 20 mg HS MAIA Administration Tramadol HCl 25 mg 12/28/16 22:00 12/30/16 14:31 Ultram PO 25 mg Q8 MAIA Administration - Patient Studies Lab Studies: Microbiology Studies 12/29/16 09:54 MRSA Culture (Admit) - Final Nose MRSA NOT DETECTED Lab Studies 12/30/16 12/30/16 12/30/16 Range/Units 11:05 07:51 06:40 WBC (4.8-10.8) K/uL RBC (3.80-5.20) Mil/uL Hgb (11.0-16.0) g/dL Hct (34.0-47.0) % MCV (81.0-99.0) fL MCH (27.0-31.0) pg MCHC (33.0-37.0) g/dL RDW (11.5-14.5) % Plt Count (130-400) K/uL MPV (7.2-11.7) fL Neut % (Auto) (50.0-75.0) % Lymph % (Auto) (20.0-40.0) % Mchenry % (Auto) (0.0-10.0) % Eos % (Auto) (0.0-4.0) % Baso % (Auto) (0.0-2.0) % Neut # (1.8-7.0) K/uL Lymph # (1.0-4.3) K/uL Mchenry # (0.0-0.8) K/uL Eos # (0.0-0.7) K/uL Baso # (0.0-0.2) K/uL Sodium 130 L (132-148) mmol/L Potassium 4.1 (3.6-5.2) mmol/L Chloride 97 L (98-107) mmol/L Carbon Dioxide 21 L (22-30) mmol/L Anion Gap 16 (10-20) BUN 13 (7-17) mg/dL Creatinine 0.6 L (0.7-1.2) MG/DL Est GFR ( Amer) > 60 Est GFR (Non-Af Amer) > 60 POC Glucose (mg/dL) 308 H 226 H (65-110) mg/dL Random Glucose 242 H (65-105) mg/dL Calcium 9.2 (8.6-10.4) mg/dl Phosphorus 3.4 (2.5-4.5) mg/dL Magnesium 1.9 (1.6-2.3) mg/dL Total Bilirubin 0.8 (0.2-1.3) mg/dL AST 27 (14-36) U/L ALT 25 (9-52) U/L Alkaline Phosphatase 88 (38-126) U/L Total Creatine Kinase (30-135) U/L CK-MB (Mass) (0.0-3.38) ng/mL Troponin I 0.1380 H* (0.00-0.120) ng/mL Troponin I, Quant (0.00-0.120) ng/mL Total Protein 7.3 (6.3-8.3) g/dL Albumin 3.6 (3.5-5.0) g/dL Globulin 3.7 (2.2-3.9) gm/dL Albumin/Globulin Ratio 1.0 (1.0-2.1) 12/30/16 12/29/16 12/29/16 Range/Units 06:40 21:15 19:16 WBC 12.3 H (4.8-10.8) K/uL RBC 4.59 (3.80-5.20) Mil/uL Hgb 13.3 (11.0-16.0) g/dL Hct 39.6 (34.0-47.0) % MCV 86.2 (81.0-99.0) fL MCH 29.0 (27.0-31.0) pg MCHC 33.6 (33.0-37.0) g/dL RDW 14.2 (11.5-14.5) % Plt Count 216 (130-400) K/uL MPV 9.3 (7.2-11.7) fL Neut % (Auto) 73.3 (50.0-75.0) % Lymph % (Auto) 20.6 (20.0-40.0) % Mchenry % (Auto) 5.1 (0.0-10.0) % Eos % (Auto) 0.6 (0.0-4.0) % Baso % (Auto) 0.4 (0.0-2.0) % Neut # 9.0 H (1.8-7.0) K/uL Lymph # 2.5 (1.0-4.3) K/uL Mchenry # 0.6 (0.0-0.8) K/uL Eos # 0.1 (0.0-0.7) K/uL Baso # 0.1 (0.0-0.2) K/uL Sodium (132-148) mmol/L Potassium (3.6-5.2) mmol/L Chloride (98-107) mmol/L Carbon Dioxide (22-30) mmol/L Anion Gap (10-20) BUN (7-17) mg/dL Creatinine (0.7-1.2) MG/DL Est GFR ( Amer) Est GFR (Non-Af Amer) POC Glucose (mg/dL) 228 H (65-110) mg/dL Random Glucose (65-105) mg/dL Calcium (8.6-10.4) mg/dl Phosphorus (2.5-4.5) mg/dL Magnesium (1.6-2.3) mg/dL Total Bilirubin (0.2-1.3) mg/dL AST (14-36) U/L ALT (9-52) U/L Alkaline Phosphatase (38-126) U/L Total Creatine Kinase < 20 L (30-135) U/L CK-MB (Mass) 1.16 (0.0-3.38) ng/mL Troponin I (0.00-0.120) ng/mL Troponin I, Quant 0.1510 H* (0.00-0.120) ng/mL Total Protein (6.3-8.3) g/dL Albumin (3.5-5.0) g/dL Globulin (2.2-3.9) gm/dL Albumin/Globulin Ratio (1.0-2.1) 12/29/16 12/29/16 Range/Units 16:13 15:16 WBC (4.8-10.8) K/uL RBC (3.80-5.20) Mil/uL Hgb (11.0-16.0) g/dL Hct (34.0-47.0) % MCV (81.0-99.0) fL MCH (27.0-31.0) pg MCHC (33.0-37.0) g/dL RDW (11.5-14.5) % Plt Count (130-400) K/uL MPV (7.2-11.7) fL Neut % (Auto) (50.0-75.0) % Lymph % (Auto) (20.0-40.0) % Mchenry % (Auto) (0.0-10.0) % Eos % (Auto) (0.0-4.0) % Baso % (Auto) (0.0-2.0) % Neut # (1.8-7.0) K/uL Lymph # (1.0-4.3) K/uL Mchenry # (0.0-0.8) K/uL Eos # (0.0-0.7) K/uL Baso # (0.0-0.2) K/uL Sodium (132-148) mmol/L Potassium (3.6-5.2) mmol/L Chloride (98-107) mmol/L Carbon Dioxide (22-30) mmol/L Anion Gap (10-20) BUN (7-17) mg/dL Creatinine (0.7-1.2) MG/DL Est GFR ( Amer) Est GFR (Non-Af Amer) POC Glucose (mg/dL) 322 H (65-110) mg/dL Random Glucose (65-105) mg/dL Calcium (8.6-10.4) mg/dl Phosphorus (2.5-4.5) mg/dL Magnesium (1.6-2.3) mg/dL Total Bilirubin (0.2-1.3) mg/dL AST (14-36) U/L ALT (9-52) U/L Alkaline Phosphatase (38-126) U/L Total Creatine Kinase (30-135) U/L CK-MB (Mass) (0.0-3.38) ng/mL Troponin I 0.1280 H* (0.00-0.120) ng/mL Troponin I, Quant (0.00-0.120) ng/mL Total Protein (6.3-8.3) g/dL Albumin (3.5-5.0) g/dL Globulin (2.2-3.9) gm/dL Albumin/Globulin Ratio (1.0-2.1) Laboratory Results - last 24 hr 12/29/16 12/29/16 12/29/16 15:16 16:13 19:16 WBC RBC Hgb Hct MCV MCH MCHC RDW Plt Count MPV Neut % (Auto) Lymph % (Auto) Mchenry % (Auto) Eos % (Auto) Baso % (Auto) Neut # Lymph # Mchenry # Eos # Baso # Sodium Potassium Chloride Carbon Dioxide Anion Gap BUN Creatinine Est GFR ( Amer) Est GFR (Non-Af Amer) POC Glucose (mg/dL) 322 H Random Glucose Calcium Phosphorus Magnesium Total Bilirubin AST ALT Alkaline Phosphatase Total Creatine Kinase < 20 L CK-MB (Mass) 1.16 Troponin I 0.1280 H* Troponin I, Quant 0.1510 H* Total Protein Albumin Globulin Albumin/Globulin Ratio 12/29/16 12/30/16 12/30/16 21:15 06:40 06:40 WBC 12.3 H RBC 4.59 Hgb 13.3 Hct 39.6 MCV 86.2 MCH 29.0 MCHC 33.6 RDW 14.2 Plt Count 216 MPV 9.3 Neut % (Auto) 73.3 Lymph % (Auto) 20.6 Mchenry % (Auto) 5.1 Eos % (Auto) 0.6 Baso % (Auto) 0.4 Neut # 9.0 H Lymph # 2.5 Mchenry # 0.6 Eos # 0.1 Baso # 0.1 Sodium 130 L Potassium 4.1 Chloride 97 L Carbon Dioxide 21 L Anion Gap 16 BUN 13 Creatinine 0.6 L Est GFR ( Amer) > 60 Est GFR (Non-Af Amer) > 60 POC Glucose (mg/dL) 228 H Random Glucose 242 H Calcium 9.2 Phosphorus 3.4 Magnesium 1.9 Total Bilirubin 0.8 AST 27 ALT 25 Alkaline Phosphatase 88 Total Creatine Kinase CK-MB (Mass) Troponin I 0.1380 H* Troponin I, Quant Total Protein 7.3 Albumin 3.6 Globulin 3.7 Albumin/Globulin Ratio 1.0 12/30/16 12/30/16 07:51 11:05 WBC RBC Hgb Hct MCV MCH MCHC RDW Plt Count MPV Neut % (Auto) Lymph % (Auto) Mchenry % (Auto) Eos % (Auto) Baso % (Auto) Neut # Lymph # Mchenry # Eos # Baso # Sodium Potassium Chloride Carbon Dioxide Anion Gap BUN Creatinine Est GFR ( Amer) Est GFR (Non-Af Amer) POC Glucose (mg/dL) 226 H 308 H Random Glucose Calcium Phosphorus Magnesium Total Bilirubin AST ALT Alkaline Phosphatase Total Creatine Kinase CK-MB (Mass) Troponin I Troponin I, Quant Total Protein Albumin Globulin Albumin/Globulin Ratio EKG/Cardiology Studies: Cardiology / EKG Studies 12/30/16 12:06 EKG [ELECTROCARDIOGRAM] Q6 Comment: Mode Of Transportation: Reason For Exam: chest pain 12/31/16 12:06 EKG [ELECTROCARDIOGRAM] Q6 Comment: Mode Of Transportation: Reason For Exam: chest pain Fingerstick Blood Sugar Results: 308 Review of Systems - Cardiovascular Cardiovascular: Chest Pain, Rapid Heart Rate. absent: Dyspnea - Respiratory Respiratory: absent: Cough, Dyspnea - Gastrointestinal Gastrointestinal: absent: Abdominal Pain, Constipation, Diarrhea, Nausea, Vomiting - Musculoskeletal Musculoskeletal: Other (leg pain b/l) - Neurological Neurological: Headaches. absent: Dizziness Critical Care Progress Note - Nutrition Nutrition: Nutrition Category Date Time Status Consistent Carbohydrate [DIET] Diets 12/29/16 Lunch Active Assessment/Plan (1) Dyspnea Assessment and plan: 56 year old female with medical history of DM, presents with SOB, cough with white sputum, fast heart rate and chest pain for one week. Patient has new onset of A-Fib & CHF, severe MR and moderate Aortic stenosis. Patient was went for cardiac cath but was canceled due to hypoxia and dyspnea. Patient was transferred to the ICU. Patient is on BiPAP, cardizem PO and drip, lopressor, lasix, crestor and ASA. Continue to monitor. Neuro: Alert, oriented Pulm: Hypoxic, Dyspnea likely secondary to CHF exacerbation - BiPAP, setting- 10/5, FiO2 50% - O2 saturation has increased to low 90s - CXR: Bibasilar interval increase coalescent pulmonary edema; patchy bibasilar infiltrates; increased CHF - Robitussin for cough CV: - New onset CHF - New onset A-fib - Elevated troponins, NSTEMI --> cardiac cath canceled on 12/29/16 due to hypoxia and SOB; - Cardizem 30mg PO started today; continue drip - Continue Lasix 20mg, Lopressor 5mg, Crestor 20mg, ASA 81mg - CXR: increased CHF, Pulmonary edema - ECHO: EF 83%; RA and LA moderately dilated; mild to mod aortic stenosis and regurgitation; mild mitral valve stenosis; moderate to severe mitral regurg; mod -to-severe tricuspid regurg, pulmonic valvular regurg, and moderate left pleural effusion. - Cardiology consulted: Dr. Jacob, help appreciated Endo: Hx of DM - Monitor blood glucose - ISS GI: no acute issues - Protonix Heme: no acute issues Renal: no acute issues MSK: Right shoulder pain - Xray: no acute displaced fracture or dislocation - Tramadol for pain ID: no acute issues - Procalcitonin: 0.05 Prophylaxis: - DVT: Lovenox 80mg sc - GI: protonix Current Visit: Yes Status: Acute <Javier Vega - Last Filed: 12/30/16 15:56> CCU Objective - Vital Signs / Intake & Output Vital Signs (Last 4 hours): Vital Signs Temp Pulse Resp BP Pulse Ox 12/30/16 14:41 76 25 H 110/63 98 12/30/16 13:41 72 29 H 109/59 L 95 12/30/16 13:17 75 28 H 108/63 94 L 12/30/16 12:41 76 26 H 99/51 L 96 12/30/16 12:00 98.2 F Intake and Output (Last 8hrs): Intake & Output 12/30/16 12/30/16 12/30/16 06:59 14:59 22:59 Intake Total 145 550 Output Total 700 950 Balance -555 -400 Intake: IV 50 Intake, IV Amount 95 80 Left Forearm 95 80 Oral 470 Output: Urine 700 950 Urine, Voided 700 950 Other: # Voids Urine, Voided 1 1 # Bowel Movements 0 - Medications Active Medications: Active Medications Generic Name Dose Route Start Last Admin Trade Name Freq PRN Reason Stop Dose Admin Aspirin 81 mg 12/28/16 10:00 12/30/16 10:06 Aspirin Chewable PO 81 mg DAILY MAIA Administration Diltiazem HCl 60 mg 12/29/16 18:00 12/30/16 05:59 Cardizem PO Not Given Q6 MAIA Diltiazem HCl 30 mg 12/30/16 10:45 12/30/16 10:52 Cardizem PO 30 mg Q6H MAIA Administration Enoxaparin Sodium 80 mg 12/29/16 05:00 12/30/16 05:28 Lovenox SC 80 mg Q12H MAIA Administration Furosemide 20 mg 12/28/16 10:00 12/30/16 10:07 Lasix IVP 20 mg BID MAIA Administration Guaifenesin/Dextromethorphan 10 ml 12/29/16 05:44 12/29/16 06:14 Robitussin Dm PO 10 ml Q4H PRN Administration Cough and congestion Diltiazem HCl 125 mg/ Sodium 125 mls @ 5 mls/hr 12/29/16 09:45 12/30/16 04:00 Chloride IV Infused .Q24H MAIA Titration Protocol 5 MG/HR Insulin Human Regular 0 unit 12/27/16 22:00 12/30/16 11:16 Novolin R SC 6 unit ACHS MAIA Administration Protocol Metoprolol Tartrate 5 mg 12/28/16 13:28 12/30/16 10:45 Lopressor IVP 5 mg Q4 PRN Administration Heart rate Pantoprazole Sodium 40 mg 12/28/16 10:00 12/30/16 10:06 Protonix Ec Tab PO 40 mg DAILY MAIA Administration Rosuvastatin Calcium 20 mg 12/27/16 22:00 12/29/16 21:57 Crestor PO 20 mg HS MAIA Administration Tramadol HCl 25 mg 12/28/16 22:00 12/30/16 14:31 Ultram PO 25 mg Q8 MAIA Administration - Patient Studies Lab Studies: Microbiology Studies 12/29/16 09:54 MRSA Culture (Admit) - Final Nose MRSA NOT DETECTED Lab Studies 12/30/16 12/30/16 12/30/16 Range/Units 11:05 07:51 06:40 WBC (4.8-10.8) K/uL RBC (3.80-5.20) Mil/uL Hgb (11.0-16.0) g/dL Hct (34.0-47.0) % MCV (81.0-99.0) fL MCH (27.0-31.0) pg MCHC (33.0-37.0) g/dL RDW (11.5-14.5) % Plt Count (130-400) K/uL MPV (7.2-11.7) fL Neut % (Auto) (50.0-75.0) % Lymph % (Auto) (20.0-40.0) % Mchenry % (Auto) (0.0-10.0) % Eos % (Auto) (0.0-4.0) % Baso % (Auto) (0.0-2.0) % Neut # (1.8-7.0) K/uL Lymph # (1.0-4.3) K/uL Mchenry # (0.0-0.8) K/uL Eos # (0.0-0.7) K/uL Baso # (0.0-0.2) K/uL Sodium 130 L (132-148) mmol/L Potassium 4.1 (3.6-5.2) mmol/L Chloride 97 L (98-107) mmol/L Carbon Dioxide 21 L (22-30) mmol/L Anion Gap 16 (10-20) BUN 13 (7-17) mg/dL Creatinine 0.6 L (0.7-1.2) MG/DL Est GFR ( Amer) > 60 Est GFR (Non-Af Amer) > 60 POC Glucose (mg/dL) 308 H 226 H (65-110) mg/dL Random Glucose 242 H (65-105) mg/dL Calcium 9.2 (8.6-10.4) mg/dl Phosphorus 3.4 (2.5-4.5) mg/dL Magnesium 1.9 (1.6-2.3) mg/dL Total Bilirubin 0.8 (0.2-1.3) mg/dL AST 27 (14-36) U/L ALT 25 (9-52) U/L Alkaline Phosphatase 88 (38-126) U/L Total Creatine Kinase (30-135) U/L CK-MB (Mass) (0.0-3.38) ng/mL Troponin I 0.1380 H* (0.00-0.120) ng/mL Troponin I, Quant (0.00-0.120) ng/mL Total Protein 7.3 (6.3-8.3) g/dL Albumin 3.6 (3.5-5.0) g/dL Globulin 3.7 (2.2-3.9) gm/dL Albumin/Globulin Ratio 1.0 (1.0-2.1) 12/30/16 12/29/16 12/29/16 Range/Units 06:40 21:15 19:16 WBC 12.3 H (4.8-10.8) K/uL RBC 4.59 (3.80-5.20) Mil/uL Hgb 13.3 (11.0-16.0) g/dL Hct 39.6 (34.0-47.0) % MCV 86.2 (81.0-99.0) fL MCH 29.0 (27.0-31.0) pg MCHC 33.6 (33.0-37.0) g/dL RDW 14.2 (11.5-14.5) % Plt Count 216 (130-400) K/uL MPV 9.3 (7.2-11.7) fL Neut % (Auto) 73.3 (50.0-75.0) % Lymph % (Auto) 20.6 (20.0-40.0) % Mchenry % (Auto) 5.1 (0.0-10.0) % Eos % (Auto) 0.6 (0.0-4.0) % Baso % (Auto) 0.4 (0.0-2.0) % Neut # 9.0 H (1.8-7.0) K/uL Lymph # 2.5 (1.0-4.3) K/uL Mchenry # 0.6 (0.0-0.8) K/uL Eos # 0.1 (0.0-0.7) K/uL Baso # 0.1 (0.0-0.2) K/uL Sodium (132-148) mmol/L Potassium (3.6-5.2) mmol/L Chloride (98-107) mmol/L Carbon Dioxide (22-30) mmol/L Anion Gap (10-20) BUN (7-17) mg/dL Creatinine (0.7-1.2) MG/DL Est GFR ( Amer) Est GFR (Non-Af Amer) POC Glucose (mg/dL) 228 H (65-110) mg/dL Random Glucose (65-105) mg/dL Calcium (8.6-10.4) mg/dl Phosphorus (2.5-4.5) mg/dL Magnesium (1.6-2.3) mg/dL Total Bilirubin (0.2-1.3) mg/dL AST (14-36) U/L ALT (9-52) U/L Alkaline Phosphatase (38-126) U/L Total Creatine Kinase < 20 L (30-135) U/L CK-MB (Mass) 1.16 (0.0-3.38) ng/mL Troponin I (0.00-0.120) ng/mL Troponin I, Quant 0.1510 H* (0.00-0.120) ng/mL Total Protein (6.3-8.3) g/dL Albumin (3.5-5.0) g/dL Globulin (2.2-3.9) gm/dL Albumin/Globulin Ratio (1.0-2.1) 12/29/16 12/29/16 Range/Units 16:13 15:16 WBC (4.8-10.8) K/uL RBC (3.80-5.20) Mil/uL Hgb (11.0-16.0) g/dL Hct (34.0-47.0) % MCV (81.0-99.0) fL MCH (27.0-31.0) pg MCHC (33.0-37.0) g/dL RDW (11.5-14.5) % Plt Count (130-400) K/uL MPV (7.2-11.7) fL Neut % (Auto) (50.0-75.0) % Lymph % (Auto) (20.0-40.0) % Mchenry % (Auto) (0.0-10.0) % Eos % (Auto) (0.0-4.0) % Baso % (Auto) (0.0-2.0) % Neut # (1.8-7.0) K/uL Lymph # (1.0-4.3) K/uL Mchenry # (0.0-0.8) K/uL Eos # (0.0-0.7) K/uL Baso # (0.0-0.2) K/uL Sodium (132-148) mmol/L Potassium (3.6-5.2) mmol/L Chloride (98-107) mmol/L Carbon Dioxide (22-30) mmol/L Anion Gap (10-20) BUN (7-17) mg/dL Creatinine (0.7-1.2) MG/DL Est GFR ( Amer) Est GFR (Non-Af Amer) POC Glucose (mg/dL) 322 H (65-110) mg/dL Random Glucose (65-105) mg/dL Calcium (8.6-10.4) mg/dl Phosphorus (2.5-4.5) mg/dL Magnesium (1.6-2.3) mg/dL Total Bilirubin (0.2-1.3) mg/dL AST (14-36) U/L ALT (9-52) U/L Alkaline Phosphatase (38-126) U/L Total Creatine Kinase (30-135) U/L CK-MB (Mass) (0.0-3.38) ng/mL Troponin I 0.1280 H* (0.00-0.120) ng/mL Troponin I, Quant (0.00-0.120) ng/mL Total Protein (6.3-8.3) g/dL Albumin (3.5-5.0) g/dL Globulin (2.2-3.9) gm/dL Albumin/Globulin Ratio (1.0-2.1) Laboratory Results - last 24 hr 12/29/16 12/29/16 12/29/16 15:16 16:13 19:16 WBC RBC Hgb Hct MCV MCH MCHC RDW Plt Count MPV Neut % (Auto) Lymph % (Auto) Mchenry % (Auto) Eos % (Auto) Baso % (Auto) Neut # Lymph # Mchenry # Eos # Baso # Sodium Potassium Chloride Carbon Dioxide Anion Gap BUN Creatinine Est GFR ( Amer) Est GFR (Non-Af Amer) POC Glucose (mg/dL) 322 H Random Glucose Calcium Phosphorus Magnesium Total Bilirubin AST ALT Alkaline Phosphatase Total Creatine Kinase < 20 L CK-MB (Mass) 1.16 Troponin I 0.1280 H* Troponin I, Quant 0.1510 H* Total Protein Albumin Globulin Albumin/Globulin Ratio 12/29/16 12/30/16 12/30/16 21:15 06:40 06:40 WBC 12.3 H RBC 4.59 Hgb 13.3 Hct 39.6 MCV 86.2 MCH 29.0 MCHC 33.6 RDW 14.2 Plt Count 216 MPV 9.3 Neut % (Auto) 73.3 Lymph % (Auto) 20.6 Mchenry % (Auto) 5.1 Eos % (Auto) 0.6 Baso % (Auto) 0.4 Neut # 9.0 H Lymph # 2.5 Mchenry # 0.6 Eos # 0.1 Baso # 0.1 Sodium 130 L Potassium 4.1 Chloride 97 L Carbon Dioxide 21 L Anion Gap 16 BUN 13 Creatinine 0.6 L Est GFR ( Amer) > 60 Est GFR (Non-Af Amer) > 60 POC Glucose (mg/dL) 228 H Random Glucose 242 H Calcium 9.2 Phosphorus 3.4 Magnesium 1.9 Total Bilirubin 0.8 AST 27 ALT 25 Alkaline Phosphatase 88 Total Creatine Kinase CK-MB (Mass) Troponin I 0.1380 H* Troponin I, Quant Total Protein 7.3 Albumin 3.6 Globulin 3.7 Albumin/Globulin Ratio 1.0 12/30/16 12/30/16 07:51 11:05 WBC RBC Hgb Hct MCV MCH MCHC RDW Plt Count MPV Neut % (Auto) Lymph % (Auto) Mchenry % (Auto) Eos % (Auto) Baso % (Auto) Neut # Lymph # Mchenry # Eos # Baso # Sodium Potassium Chloride Carbon Dioxide Anion Gap BUN Creatinine Est GFR ( Amer) Est GFR (Non-Af Amer) POC Glucose (mg/dL) 226 H 308 H Random Glucose Calcium Phosphorus Magnesium Total Bilirubin AST ALT Alkaline Phosphatase Total Creatine Kinase CK-MB (Mass) Troponin I Troponin I, Quant Total Protein Albumin Globulin Albumin/Globulin Ratio EKG/Cardiology Studies: Cardiology / EKG Studies 12/30/16 12:06 EKG [ELECTROCARDIOGRAM] Q6 Comment: Mode Of Transportation: Reason For Exam: chest pain 12/31/16 12:06 EKG [ELECTROCARDIOGRAM] Q6 Comment: Mode Of Transportation: Reason For Exam: chest pain Critical Care Progress Note - Nutrition Nutrition: Nutrition Category Date Time Status Consistent Carbohydrate [DIET] Diets 12/29/16 Lunch Active Attending/Attestation - Attestation I have personally seen and examined this patient.: Yes I have fully participated in the care of the patient.: Yes I have reviewed all pertinent clinical information: Yes Notes (Text): 12/30/16 15:52 Patient seen and examined in the intensive care unit. Case discussed with house staff in the morning rounds. Remains on Cardizem drip at 15 mg Patient started on by mouth Cardizem Continue anticoagulation Possible cardiac cath once stable
--- NOTE | 2016-12-30 17:59 | CARD ---
APPROVED REPORT EKG Measurement Heart [id number] <Conclusion> Atrial flutter with variable AV block Rightward axis Abnormal QRS-T angle, consider primary T wave abnormality Abnormal ECG
[2016-12-30] MEDS ORDERED: Iodixanol 320 MG/ML 100 ML BOTTLE IV ONE (19:55)
--- NOTE | 2016-12-30 23:28 | CP.PCM.PN ---
Subjective - Date & Time of Evaluation Date of Evaluation: 12/30/16 Time of Evaluation: 18:30 - Subjective Subjective: Patient seen and evaluated Covering for Dr. Robbins Check CT angio r/o PE Cardiac cath Wednesday if CT angio normal Objective - Vital Signs/Intake and Output Vital Signs (last 24 hours): Temp Pulse Resp BP Pulse Ox 98.4 F 114 H 16 124/84 94 L 12/30/16 20:00 12/30/16 19:41 12/30/16 19:41 12/30/16 19:41 12/30/16 19:41 Intake and Output: 12/30/16 12/31/16 18:59 06:59 Intake Total 750 0 Output Total 1250 Balance -500 0 - Medications Medications: Current Medications Aspirin (Aspirin Chewable) 81 mg PO DAILY [facility] Last Admin: 12/30/16 10:06 Dose: 81 mg Diltiazem HCl (Cardizem) 60 mg PO Q6 [facility] Last Admin: 12/30/16 05:59 Dose: Not Given Diltiazem HCl (Cardizem) 30 mg PO Q6H [facility] Last Admin: 12/30/16 22:51 Dose: 30 mg Enoxaparin Sodium (Lovenox) 80 mg SC Q12H [facility] Last Admin: 12/30/16 16:33 Dose: 80 mg Furosemide (Lasix) 20 mg IVP BID [facility] Last Admin: 12/30/16 17:01 Dose: 20 mg Guaifenesin/Dextromethorphan (Robitussin Dm) 10 ml PO Q4H PRN PRN Reason: Cough and congestion Last Admin: 12/29/16 06:14 Dose: 10 ml Insulin Human Regular (Novolin R) 0 unit SC ACHS [facility] PRN Reason: Protocol Last Admin: 12/30/16 22:41 Dose: Not Given Metoprolol Tartrate (Lopressor) 5 mg IVP Q4 PRN PRN Reason: Heart rate Last Admin: 12/30/16 10:45 Dose: 5 mg Pantoprazole Sodium (Protonix Ec Tab) 40 mg PO DAILY [facility] Last Admin: 12/30/16 10:06 Dose: 40 mg Rosuvastatin Calcium (Crestor) 20 mg PO HS [facility] Last Admin: 12/30/16 22:51 Dose: 20 mg Tramadol HCl (Ultram) 25 mg PO Q8 [facility] Last Admin: 12/30/16 22:51 Dose: 25 mg - Labs Labs: 12/30/16 06:40 12/30/16 06:40
[2016-12-31] MEDS: Tramadol 25 mg PO SCH ×3 (06:19→21:10)
[2016-12-31] MEDS: Enoxaparin 80 mg Syringe SC SCH ×2 (06:19→16:32)
[2016-12-31 06:39] LABS: BASO % 0.3 % (0.0-2.0); EOS # 0.2 K/uL (0.0-0.7); EOS % 1.9 % (0.0-4.0); HEMATOCRIT 37.9 % (34.0-47.0); LYMPH # 3.3 K/uL (1.0-4.3); LYMPH % 35.7 % (20.0-40.0); MEAN CELL VOLUME 84.9 fL (81.0-99.0); MEAN CORPUSCULAR HEMOGLOBIN 29.2 pg (27.0-31.0); MEAN CORPUSCULAR HGB CONC 34.4 g/dL (33.0-37.0); MEAN PLATELET VOLUME 9.2 fL (7.2-11.7); MONO # 0.6 K/uL (0.0-0.8); MONO % 6.2 % (0.0-10.0); NRBC % 0.1 % (0.0-2.0); RED CELL DISTRIBUTION WIDTH 13.9 % (11.5-14.5); WHITE BLOOD COUNT 9.2 K/uL (4.8-10.8)
[2016-12-31 06:45] LABS: ALKALINE PHOSPHATASE 86 U/L (38-126); ALT/SGPT 35 U/L (9-52); AST/SGOT 18 U/L (14-36); BILIRUBIN,TOTAL 0.7 mg/dL (0.2-1.3); BLOOD UREA NITROGEN 13 mg/dL (7-17); CALCIUM 9.5 mg/dl (8.6-10.4); CARBON DIOXIDE 26 mmol/L (22-30); CHLORIDE 96 mmol/L (98-107); GFR AFRICAN-AMERICAN > 60; GLUCOSE,RANDOM 192 mg/dL (65-105); MAGNESIUM 1.8 mg/dL (1.6-2.3); PHOSPHOROUS 3.6 mg/dL (2.5-4.5); POTASSIUM 3.5 mmol/L (3.6-5.2); SODIUM 133 mmol/L (132-148); TOTAL PROTEIN 7.1 g/dL (6.3-8.3)
[2016-12-31] MEDS: (Novolin R) Insulin Human Regular 100 units/ml vial SC SCH ×4 (08:01→21:12)
[2016-12-31] MEDS: Pantoprazole 40 mg EC Tab PO SCH (09:33)
[2016-12-31] MEDS ORDERED: Potassium Chloride 20 mEq ER Tab PO ONE (11:00)
[2016-12-31 11:37] LABS: INR 1.1
--- NOTE | 2016-12-31 16:00 | CT ---
PROCEDURE: CT Chest with contrast (Pulmonary Angiogram) HISTORY: r/o PE COMPARISON: None available. TECHNIQUE: Axial computed tomography images were obtained of the chest in the pulmonary arterial phase of enhancement. Coronal and sagittal reformatted images were created and reviewed. Intravenous contrast dose: 100 mL Visipaque 320 Radiation dose: Total exam DLP = 501.55 mGy-cm. This CT exam was performed using one or more of the following dose reduction techniques: Automated exposure control, adjustment of the mA and/or kV according to patient size, and/or use of iterative reconstruction technique. FINDINGS: PULMONARY ARTERIES: The pulmonary arteries are normal in caliber and there are no central filling defects to suggest acute pulmonary embolism. AORTA: The aorta is normal in caliber without evidence of aneurysm or dissection. LUNGS: There is patchy ground-glass attenuation in both lungs and compressive atelectasis in the lower lobes, worse on the right. PLEURAL SPACES: Moderate bilateral pleural effusions, larger on the right. No pneumothorax. HEART: There is mild cardiomegaly. No pericardial effusion. LYMPH NODES: There are enlarged mediastinal lymph nodes, the largest precarinal lymph node measures 10 mm in short axis. BONES, CHEST WALL: Within normal limits for the patient's age. No fracture or destructive lesion OTHER FINDINGS: Unremarkable. IMPRESSION: 1. No CT evidence for acute pulmonary embolism. 2. Moderate bilateral pleural effusions, larger on the right with compressive atelectasis in the lower lobes. 3. Patchy ground-glass attenuation in both lungs most compatible with alveolar pulmonary edema. 4. Mediastinal lymphadenopathy is likely reactive in etiology
--- NOTE | 2016-12-31 17:05 | CP.CCUPN ---
<Arabella Bess - Last Filed: 12/31/16 18:33> CCU Subjective - Physician Review Subjective (Free Text): Patient was seen and examined at bedside in the morning. Patient was resting comfortably in bed in no acute distress. She reports feeling her heart beat very fast. She feels less short of breath. Patient denies chest pain, abdominal pain, nausea, vomiting, diarrhea, and dizziness. 12/31/16 18:33 CCU Objective - Vital Signs / Intake & Output Vital Signs (Last 4 hours): Vital Signs Temp Pulse Resp BP Pulse Ox 12/31/16 16:10 89 26 H 97 12/31/16 16:00 98.6 F 95 H 20 95 12/31/16 15:50 85 20 98 12/31/16 15:40 93 H 27 H 90 L 12/31/16 15:33 89 25 H 142/94 H 93 L 12/31/16 15:30 86 30 H 97 12/31/16 15:20 86 25 H 99 12/31/16 15:10 83 20 97 12/31/16 15:00 79 20 97 12/31/16 14:50 80 26 H 96 12/31/16 14:40 77 20 99 12/31/16 14:32 77 24 128/77 95 12/31/16 14:30 79 18 95 12/31/16 14:20 75 25 H 97 12/31/16 14:10 78 17 96 12/31/16 14:00 79 20 95 12/31/16 13:50 82 21 95 12/31/16 13:40 79 22 96 12/31/16 13:33 84 21 134/79 96 12/31/16 13:30 83 14 97 12/31/16 13:20 83 25 H 96 12/31/16 13:10 115 H 23 93 L Intake and Output (Last 8hrs): Intake & Output 12/31/16 12/31/16 12/31/16 06:59 14:59 22:59 Intake Total 100 550 50 Output Total 900 600 Balance -800 -50 50 Intake: Oral 100 550 50 Output: Urine 900 600 Urine, Voided 900 600 Other: # Bowel Movements 1 - Physical Exam Head: Positive for: Atraumatic, Normocephalic Extroacular Muscles: Positive for: EOMI Mouth: Positive for: Moist Mucous Membranes Respiratory/Chest: Positive for: Decreased Breath Sounds, Rales. Negative for: Clear to Auscultation Cardiovascular: Positive for: Normal S1, S2, Irregular Rhythm, Peripheal Pulses Present, Tachycardic Abdomen: Positive for: Distention, Normal Bowel Sounds. Negative for: Tenderness Upper Extremity: Positive for: Normal Inspection. Negative for: Edema Lower Extremity: Positive for: Edema. Negative for: Normal Inspection Skin: Positive for: Warm, Dry, Normal Color Psychiatric: Positive for: Alert, Oriented x 3, Normal Affect, Normal Mood - Medications Active Medications: Active Medications Generic Name Dose Route Start Last Admin Trade Name Freq PRN Reason Stop Dose Admin Aspirin 81 mg 12/28/16 10:00 12/31/16 09:33 Aspirin Chewable PO 81 mg DAILY MAIA Administration Diltiazem HCl 60 mg 12/29/16 18:00 12/30/16 05:59 Cardizem PO Not Given Q6 MAIA Diltiazem HCl 30 mg 12/30/16 10:45 12/31/16 16:31 Cardizem PO 30 mg Q6H MAIA Administration Enoxaparin Sodium 80 mg 12/29/16 05:00 12/31/16 16:32 Lovenox SC 80 mg Q12H MAIA Administration Furosemide 20 mg 12/28/16 10:00 12/31/16 09:33 Lasix IVP 20 mg BID MAIA Administration Guaifenesin/Dextromethorphan 10 ml 12/29/16 05:44 12/29/16 06:14 Robitussin Dm PO 10 ml Q4H PRN Administration Cough and congestion Insulin Human Regular 0 unit 12/27/16 22:00 12/31/16 16:31 Novolin R SC 3 unit ACHS MAIA Administration Protocol Metoprolol Tartrate 5 mg 12/28/16 13:28 12/30/16 10:45 Lopressor IVP 5 mg Q4 PRN Administration Heart rate Metoprolol Tartrate 25 mg 12/31/16 11:00 12/31/16 12:12 Lopressor PO 25 mg BID MAIA Administration Pantoprazole Sodium 40 mg 12/28/16 10:00 12/31/16 09:33 Protonix Ec Tab PO 40 mg DAILY MAIA Administration Rosuvastatin Calcium 20 mg 12/27/16 22:00 12/30/16 22:51 Crestor PO 20 mg HS MAIA Administration Tramadol HCl 25 mg 12/28/16 22:00 12/31/16 14:45 Ultram PO 25 mg Q8 MAIA Administration - Patient Studies Lab Studies: Lab Studies 12/31/16 12/31/16 12/31/16 Range/Units 16:14 11:32 11:26 WBC (4.8-10.8) K/uL RBC (3.80-5.20) Mil/uL Hgb (11.0-16.0) g/dL Hct (34.0-47.0) % MCV (81.0-99.0) fL MCH (27.0-31.0) pg MCHC (33.0-37.0) g/dL RDW (11.5-14.5) % Plt Count (130-400) K/uL MPV (7.2-11.7) fL Neut % (Auto) (50.0-75.0) % Lymph % (Auto) (20.0-40.0) % Mellette % (Auto) (0.0-10.0) % Eos % (Auto) (0.0-4.0) % Baso % (Auto) (0.0-2.0) % Neut # (1.8-7.0) K/uL Lymph # (1.0-4.3) K/uL Mellette # (0.0-0.8) K/uL Eos # (0.0-0.7) K/uL Baso # (0.0-0.2) K/uL PT 12.2 (9.7-12.2) SECONDS INR 1.1 APTT 48 H (21-34) SECONDS Sodium (132-148) mmol/L Potassium (3.6-5.2) mmol/L Chloride (98-107) mmol/L Carbon Dioxide (22-30) mmol/L Anion Gap (10-20) BUN (7-17) mg/dL Creatinine (0.7-1.2) MG/DL Est GFR ( Amer) Est GFR (Non-Af Amer) POC Glucose (mg/dL) 204 H 257 H (65-110) mg/dL Random Glucose (65-105) mg/dL Calcium (8.6-10.4) mg/dl Phosphorus (2.5-4.5) mg/dL Magnesium (1.6-2.3) mg/dL Total Bilirubin (0.2-1.3) mg/dL AST (14-36) U/L ALT (9-52) U/L Alkaline Phosphatase (38-126) U/L Total Protein (6.3-8.3) g/dL Albumin (3.5-5.0) g/dL Globulin (2.2-3.9) gm/dL Albumin/Globulin Ratio (1.0-2.1) 12/31/16 12/31/16 12/31/16 Range/Units 07:42 06:27 06:20 WBC 9.2 (4.8-10.8) K/uL RBC 4.47 (3.80-5.20) Mil/uL Hgb 13.0 (11.0-16.0) g/dL Hct 37.9 (34.0-47.0) % MCV 84.9 (81.0-99.0) fL MCH 29.2 (27.0-31.0) pg MCHC 34.4 (33.0-37.0) g/dL RDW 13.9 (11.5-14.5) % Plt Count 197 (130-400) K/uL MPV 9.2 (7.2-11.7) fL Neut % (Auto) 55.9 (50.0-75.0) % Lymph % (Auto) 35.7 (20.0-40.0) % Mellette % (Auto) 6.2 (0.0-10.0) % Eos % (Auto) 1.9 (0.0-4.0) % Baso % (Auto) 0.3 (0.0-2.0) % Neut # 5.1 (1.8-7.0) K/uL Lymph # 3.3 (1.0-4.3) K/uL Mellette # 0.6 (0.0-0.8) K/uL Eos # 0.2 (0.0-0.7) K/uL Baso # 0.0 (0.0-0.2) K/uL PT (9.7-12.2) SECONDS INR APTT (21-34) SECONDS Sodium 133 (132-148) mmol/L Potassium 3.5 L (3.6-5.2) mmol/L Chloride 96 L (98-107) mmol/L Carbon Dioxide 26 (22-30) mmol/L Anion Gap 15 (10-20) BUN 13 (7-17) mg/dL Creatinine 0.6 L (0.7-1.2) MG/DL Est GFR ( Amer) > 60 Est GFR (Non-Af Amer) > 60 POC Glucose (mg/dL) 249 H (65-110) mg/dL Random Glucose 192 H (65-105) mg/dL Calcium 9.5 (8.6-10.4) mg/dl Phosphorus 3.6 (2.5-4.5) mg/dL Magnesium 1.8 (1.6-2.3) mg/dL Total Bilirubin 0.7 (0.2-1.3) mg/dL AST 18 (14-36) U/L ALT 35 (9-52) U/L Alkaline Phosphatase 86 (38-126) U/L Total Protein 7.1 (6.3-8.3) g/dL Albumin 3.6 (3.5-5.0) g/dL Globulin 3.6 (2.2-3.9) gm/dL Albumin/Globulin Ratio 1.0 (1.0-2.1) // Range/Units 21:09 WBC (4.8-10.8) K/uL RBC (3.80-5.20) Mil/uL Hgb (11.0-16.0) g/dL Hct (34.0-47.0) % MCV (81.0-99.0) fL MCH (27.0-31.0) pg MCHC (33.0-37.0) g/dL RDW (11.5-14.5) % Plt Count (130-400) K/uL MPV (7.2-11.7) fL Neut % (Auto) (50.0-75.0) % Lymph % (Auto) (20.0-40.0) % Mellette % (Auto) (0.0-10.0) % Eos % (Auto) (0.0-4.0) % Baso % (Auto) (0.0-2.0) % Neut # (1.8-7.0) K/uL Lymph # (1.0-4.3) K/uL Mellette # (0.0-0.8) K/uL Eos # (0.0-0.7) K/uL Baso # (0.0-0.2) K/uL PT (9.7-12.2) SECONDS INR APTT (21-34) SECONDS Sodium (132-148) mmol/L Potassium (3.6-5.2) mmol/L Chloride (98-107) mmol/L Carbon Dioxide (22-30) mmol/L Anion Gap (10-20) BUN (7-17) mg/dL Creatinine (0.7-1.2) MG/DL Est GFR ( Amer) Est GFR (Non-Af Amer) POC Glucose (mg/dL) 226 H (65-110) mg/dL Random Glucose (65-105) mg/dL Calcium (8.6-10.4) mg/dl Phosphorus (2.5-4.5) mg/dL Magnesium (1.6-2.3) mg/dL Total Bilirubin (0.2-1.3) mg/dL AST (14-36) U/L ALT (9-52) U/L Alkaline Phosphatase (38-126) U/L Total Protein (6.3-8.3) g/dL Albumin (3.5-5.0) g/dL Globulin (2.2-3.9) gm/dL Albumin/Globulin Ratio (1.0-2.1) Laboratory Results - last 24 hr 12/30/16 12/31/16 12/31/16 21:09 06:20 06:27 WBC 9.2 RBC 4.47 Hgb 13.0 Hct 37.9 MCV 84.9 MCH 29.2 MCHC 34.4 RDW 13.9 Plt Count 197 MPV 9.2 Neut % (Auto) 55.9 Lymph % (Auto) 35.7 Mellette % (Auto) 6.2 Eos % (Auto) 1.9 Baso % (Auto) 0.3 Neut # 5.1 Lymph # 3.3 Mellette # 0.6 Eos # 0.2 Baso # 0.0 PT INR APTT Sodium 133 Potassium 3.5 L Chloride 96 L Carbon Dioxide 26 Anion Gap 15 BUN 13 Creatinine 0.6 L Est GFR ( Amer) > 60 Est GFR (Non-Af Amer) > 60 POC Glucose (mg/dL) 226 H Random Glucose 192 H Calcium 9.5 Phosphorus 3.6 Magnesium 1.8 Total Bilirubin 0.7 AST 18 ALT 35 Alkaline Phosphatase 86 Total Protein 7.1 Albumin 3.6 Globulin 3.6 Albumin/Globulin Ratio 1.0 12/31/16 12/31/16 12/31/16 07:42 11:26 11:32 WBC RBC Hgb Hct MCV MCH MCHC RDW Plt Count MPV Neut % (Auto) Lymph % (Auto) Mellette % (Auto) Eos % (Auto) Baso % (Auto) Neut # Lymph # Mellette # Eos # Baso # PT 12.2 INR 1.1 APTT 48 H Sodium Potassium Chloride Carbon Dioxide Anion Gap BUN Creatinine Est GFR ( Amer) Est GFR (Non-Af Amer) POC Glucose (mg/dL) 249 H 257 H Random Glucose Calcium Phosphorus Magnesium Total Bilirubin AST ALT Alkaline Phosphatase Total Protein Albumin Globulin Albumin/Globulin Ratio 12/31/16 16:14 WBC RBC Hgb Hct MCV MCH MCHC RDW Plt Count MPV Neut % (Auto) Lymph % (Auto) Mellette % (Auto) Eos % (Auto) Baso % (Auto) Neut # Lymph # Mellette # Eos # Baso # PT INR APTT Sodium Potassium Chloride Carbon Dioxide Anion Gap BUN Creatinine Est GFR ( Amer) Est GFR (Non-Af Amer) POC Glucose (mg/dL) 204 H Random Glucose Calcium Phosphorus Magnesium Total Bilirubin AST ALT Alkaline Phosphatase Total Protein Albumin Globulin Albumin/Globulin Ratio EKG/Cardiology Studies: Cardiology / EKG Studies 12/31/16 12:06 EKG [ELECTROCARDIOGRAM] Q6 Comment: Mode Of Transportation: Reason For Exam: chest pain Fingerstick Blood Sugar Results: 204 Review of Systems - Constitutional Constitutional: absent: Fever - Cardiovascular Cardiovascular: Dyspnea (improving), Rapid Heart Rate. absent: Chest Pain, Lightheadedness - Respiratory Respiratory: Cough (improved), Dyspnea - Gastrointestinal Gastrointestinal: Constipation. absent: Abdominal Pain, Diarrhea, Nausea, Vomiting - Genitourinary Genitourinary: absent: Dysuria - Neurological Neurological: absent: Dizziness, Headaches - Endocrine Endocrine: Palpitations Critical Care Progress Note - Nutrition Nutrition: Nutrition Category Date Time Status Consistent Carbohydrate [DIET] Diets 12/29/16 Lunch Active Assessment/Plan (1) Dyspnea Assessment and plan: 56 year old female with medical history of DM, presents with SOB, cough with white sputum, fast heart rate and chest pain for one week. Patient has new onset of A-Fib & CHF, severe MR and moderate Aortic stenosis. Patient was went for cardiac cath but was canceled due to hypoxia and dyspnea. Patient was transferred to the ICU. Patient is on BiPAP, cardizem PO, lopressor, lasix, crestor and ASA. Patient is scheduled for cardiac cath tomorrow, 01/01/17. Continue to monitor. Neuro: Alert, oriented, anxious about cardiac cath Pulm: Hypoxic, Dyspnea likely secondary to CHF exacerbation - BiPAP - O2 saturation has increased to low 90s - CXR: Bibasilar interval increase coalescent pulmonary edema; patchy bibasilar infiltrates; increased CHF - Robitussin for cough - Chest CT: moderate B/L pleural effusions, R>L with compressive atelectasis in lower lobes; patchy ground-glass attenuation in both lungs-- pulmonary edema; no evidence of acute PE. - IR consulted for thoracentesis CV: - New onset CHF - New onset A-fib - Elevated troponins, NSTEMI --> cardiac cath canceled on 12/29/16 due to hypoxia and SOB; - Continue cardizem PO - Continue Lasix 20mg, Lopressor 5mg, Crestor 20mg, ASA 81mg - CXR: increased CHF, Pulmonary edema - ECHO: EF 83%; RA and LA moderately dilated; mild to mod aortic stenosis and regurgitation; mild mitral valve stenosis; moderate to severe mitral regurg; mod -to-severe tricuspid regurg, pulmonic valvular regurg, and moderate left pleural effusion. - Cardiology consulted: Dr. Jacob, help appreciated - Cardiac cath scheduled for faheem, 01/01/17 Endo: Hx of DM - Monitor blood glucose - ISS GI: no acute issues - Protonix - NPO after MN for cath Heme: no acute issues Renal: no acute issues MSK: Right shoulder pain - Xray: no acute displaced fracture or dislocation - Tramadol for pain ID: no acute issues - Procalcitonin: 0.05 Prophylaxis: - DVT: Lovenox 80mg sc - GI: protonix - PT/OT Current Visit: Yes Status: Acute <[id number] M - Last Filed: 12/31/16 18:54> CCU Objective - Vital Signs / Intake & Output Vital Signs (Last 4 hours): Vital Signs Temp Pulse Resp BP Pulse Ox 12/31/16 18:33 128/65 12/31/16 18:00 97 H 24 99 12/31/16 17:50 102 H 18 99 12/31/16 17:41 139/77 12/31/16 17:40 97 H 21 96 12/31/16 17:32 94 H 24 139/77 96 12/31/16 17:30 98 H 22 98 12/31/16 17:20 104 H 25 H 98 12/31/16 17:10 101 H 24 97 12/31/16 17:00 99 H 11 L 97 12/31/16 16:50 89 28 H 92 L 12/31/16 16:40 87 22 97 12/31/16 16:32 94 H 30 H 136/74 95 12/31/16 16:30 81 13 99 12/31/16 16:20 94 H 25 H 96 12/31/16 16:10 89 26 H 97 12/31/16 16:00 98.6 F 95 H 20 95 12/31/16 15:50 85 20 98 12/31/16 15:40 93 H 27 H 90 L 12/31/16 15:33 89 25 H 142/94 H 93 L 12/31/16 15:30 86 30 H 97 12/31/16 15:20 86 25 H 99 12/31/16 15:10 83 20 97 12/31/16 15:00 79 20 97 Intake and Output (Last 8hrs): Intake & Output 12/31/16 12/31/16 12/31/16 06:59 14:59 22:59 Intake Total 100 550 400 Output Total 900 600 750 Balance -800 -50 -350 Weight 170 lb 4.8 oz Intake: Oral 100 550 400 Output: Urine 900 600 750 Urine, Voided 900 600 750 Other: # Bowel Movements 1 - Medications Active Medications: Active Medications Generic Name Dose Route Start Last Admin Trade Name Freq PRN Reason Stop Dose Admin Aspirin 81 mg 12/28/16 10:00 12/31/16 09:33 Aspirin Chewable PO 81 mg DAILY MAIA Administration Diltiazem HCl 30 mg 12/30/16 10:45 12/31/16 16:31 Cardizem PO 30 mg Q6H MAIA Administration Enoxaparin Sodium 80 mg 12/29/16 05:00 12/31/16 16:32 Lovenox SC 80 mg Q12H MAIA Administration Furosemide 20 mg 12/28/16 10:00 12/31/16 17:41 Lasix IVP 20 mg BID MAIA Administration Guaifenesin/Dextromethorphan 10 ml 12/29/16 05:44 12/29/16 06:14 Robitussin Dm PO 10 ml Q4H PRN Administration Cough and congestion Insulin Human Regular 0 unit 12/27/16 22:00 12/31/16 16:31 Novolin R SC 3 unit ACHS MAIA Administration Protocol Metoprolol Tartrate 5 mg 12/28/16 13:28 12/30/16 10:45 Lopressor IVP 5 mg Q4 PRN Administration Heart rate Metoprolol Tartrate 50 mg 01/01/17 10:00 Lopressor PO BID MAIA Pantoprazole Sodium 40 mg 12/28/16 10:00 12/31/16 09:33 Protonix Ec Tab PO 40 mg DAILY MAIA Administration Rosuvastatin Calcium 20 mg 12/27/16 22:00 12/30/16 22:51 Crestor PO 20 mg HS MAIA Administration Tramadol HCl 25 mg 12/28/16 22:00 12/31/16 14:45 Ultram PO 25 mg Q8 MAIA Administration - Patient Studies Lab Studies: Lab Studies 12/31/16 12/31/16 12/31/16 Range/Units 16:14 11:32 11:26 WBC (4.8-10.8) K/uL RBC (3.80-5.20) Mil/uL Hgb (11.0-16.0) g/dL Hct (34.0-47.0) % MCV (81.0-99.0) fL MCH (27.0-31.0) pg MCHC (33.0-37.0) g/dL RDW (11.5-14.5) % Plt Count (130-400) K/uL MPV (7.2-11.7) fL Neut % (Auto) (50.0-75.0) % Lymph % (Auto) (20.0-40.0) % Mellette % (Auto) (0.0-10.0) % Eos % (Auto) (0.0-4.0) % Baso % (Auto) (0.0-2.0) % Neut # (1.8-7.0) K/uL Lymph # (1.0-4.3) K/uL Mellette # (0.0-0.8) K/uL Eos # (0.0-0.7) K/uL Baso # (0.0-0.2) K/uL PT 12.2 (9.7-12.2) SECONDS INR 1.1 APTT 48 H (21-34) SECONDS Sodium (132-148) mmol/L Potassium (3.6-5.2) mmol/L Chloride (98-107) mmol/L Carbon Dioxide (22-30) mmol/L Anion Gap (10-20) BUN (7-17) mg/dL Creatinine (0.7-1.2) MG/DL Est GFR ( Amer) Est GFR (Non-Af Amer) POC Glucose (mg/dL) 204 H 257 H (65-110) mg/dL Random Glucose (65-105) mg/dL Calcium (8.6-10.4) mg/dl Phosphorus (2.5-4.5) mg/dL Magnesium (1.6-2.3) mg/dL Total Bilirubin (0.2-1.3) mg/dL AST (14-36) U/L ALT (9-52) U/L Alkaline Phosphatase (38-126) U/L Total Protein (6.3-8.3) g/dL Albumin (3.5-5.0) g/dL Globulin (2.2-3.9) gm/dL Albumin/Globulin Ratio (1.0-2.1) 12/31/16 12/31/16 12/31/16 Range/Units 07:42 06:27 06:20 WBC 9.2 (4.8-10.8) K/uL RBC 4.47 (3.80-5.20) Mil/uL Hgb 13.0 (11.0-16.0) g/dL Hct 37.9 (34.0-47.0) % MCV 84.9 (81.0-99.0) fL MCH 29.2 (27.0-31.0) pg MCHC 34.4 (33.0-37.0) g/dL RDW 13.9 (11.5-14.5) % Plt Count 197 (130-400) K/uL MPV 9.2 (7.2-11.7) fL Neut % (Auto) 55.9 (50.0-75.0) % Lymph % (Auto) 35.7 (20.0-40.0) % Mellette % (Auto) 6.2 (0.0-10.0) % Eos % (Auto) 1.9 (0.0-4.0) % Baso % (Auto) 0.3 (0.0-2.0) % Neut # 5.1 (1.8-7.0) K/uL Lymph # 3.3 (1.0-4.3) K/uL Mellette # 0.6 (0.0-0.8) K/uL Eos # 0.2 (0.0-0.7) K/uL Baso # 0.0 (0.0-0.2) K/uL PT (9.7-12.2) SECONDS INR APTT (21-34) SECONDS Sodium 133 (132-148) mmol/L Potassium 3.5 L (3.6-5.2) mmol/L Chloride 96 L (98-107) mmol/L Carbon Dioxide 26 (22-30) mmol/L Anion Gap 15 (10-20) BUN 13 (7-17) mg/dL Creatinine 0.6 L (0.7-1.2) MG/DL Est GFR ( Amer) > 60 Est GFR (Non-Af Amer) > 60 POC Glucose (mg/dL) 249 H (65-110) mg/dL Random Glucose 192 H (65-105) mg/dL Calcium 9.5 (8.6-10.4) mg/dl Phosphorus 3.6 (2.5-4.5) mg/dL Magnesium 1.8 (1.6-2.3) mg/dL Total Bilirubin 0.7 (0.2-1.3) mg/dL AST 18 (14-36) U/L ALT 35 (9-52) U/L Alkaline Phosphatase 86 (38-126) U/L Total Protein 7.1 (6.3-8.3) g/dL Albumin 3.6 (3.5-5.0) g/dL Globulin 3.6 (2.2-3.9) gm/dL Albumin/Globulin Ratio 1.0 (1.0-2.1) 12/30/16 Range/Units 21:09 WBC (4.8-10.8) K/uL RBC (3.80-5.20) Mil/uL Hgb (11.0-16.0) g/dL Hct (34.0-47.0) % MCV (81.0-99.0) fL MCH (27.0-31.0) pg MCHC (33.0-37.0) g/dL RDW (11.5-14.5) % Plt Count (130-400) K/uL MPV (7.2-11.7) fL Neut % (Auto) (50.0-75.0) % Lymph % (Auto) (20.0-40.0) % Mellette % (Auto) (0.0-10.0) % Eos % (Auto) (0.0-4.0) % Baso % (Auto) (0.0-2.0) % Neut # (1.8-7.0) K/uL Lymph # (1.0-4.3) K/uL Mellette # (0.0-0.8) K/uL Eos # (0.0-0.7) K/uL Baso # (0.0-0.2) K/uL PT (9.7-12.2) SECONDS INR APTT (21-34) SECONDS Sodium (132-148) mmol/L Potassium (3.6-5.2) mmol/L Chloride (98-107) mmol/L Carbon Dioxide (22-30) mmol/L Anion Gap (10-20) BUN (7-17) mg/dL Creatinine (0.7-1.2) MG/DL Est GFR ( Amer) Est GFR (Non-Af Amer) POC Glucose (mg/dL) 226 H (65-110) mg/dL Random Glucose (65-105) mg/dL Calcium (8.6-10.4) mg/dl Phosphorus (2.5-4.5) mg/dL Magnesium (1.6-2.3) mg/dL Total Bilirubin (0.2-1.3) mg/dL AST (14-36) U/L ALT (9-52) U/L Alkaline Phosphatase (38-126) U/L Total Protein (6.3-8.3) g/dL Albumin (3.5-5.0) g/dL Globulin (2.2-3.9) gm/dL Albumin/Globulin Ratio (1.0-2.1) Laboratory Results - last 24 hr 12/30/16 12/31/16 12/31/16 21:09 06:20 06:27 WBC 9.2 RBC 4.47 Hgb 13.0 Hct 37.9 MCV 84.9 MCH 29.2 MCHC 34.4 RDW 13.9 Plt Count 197 MPV 9.2 Neut % (Auto) 55.9 Lymph % (Auto) 35.7 Mellette % (Auto) 6.2 Eos % (Auto) 1.9 Baso % (Auto) 0.3 Neut # 5.1 Lymph # 3.3 Mellette # 0.6 Eos # 0.2 Baso # 0.0 PT INR APTT Sodium 133 Potassium 3.5 L Chloride 96 L Carbon Dioxide 26 Anion Gap 15 BUN 13 Creatinine 0.6 L Est GFR ( Amer) > 60 Est GFR (Non-Af Amer) > 60 POC Glucose (mg/dL) 226 H Random Glucose 192 H Calcium 9.5 Phosphorus 3.6 Magnesium 1.8 Total Bilirubin 0.7 AST 18 ALT 35 Alkaline Phosphatase 86 Total Protein 7.1 Albumin 3.6 Globulin 3.6 Albumin/Globulin Ratio 1.0 12/31/16 12/31/16 12/31/16 07:42 11:26 11:32 WBC RBC Hgb Hct MCV MCH MCHC RDW Plt Count MPV Neut % (Auto) Lymph % (Auto) Mellette % (Auto) Eos % (Auto) Baso % (Auto) Neut # Lymph # Mellette # Eos # Baso # PT 12.2 INR 1.1 APTT 48 H Sodium Potassium Chloride Carbon Dioxide Anion Gap BUN Creatinine Est GFR ( Amer) Est GFR (Non-Af Amer) POC Glucose (mg/dL) 249 H 257 H Random Glucose Calcium Phosphorus Magnesium Total Bilirubin AST ALT Alkaline Phosphatase Total Protein Albumin Globulin Albumin/Globulin Ratio 12/31/16 16:14 WBC RBC Hgb Hct MCV MCH MCHC RDW Plt Count MPV Neut % (Auto) Lymph % (Auto) [place] % (Auto) Eos % (Auto) Baso % (Auto) Neut # Lymph # [place] # Eos # Baso # PT INR APTT Sodium Potassium Chloride Carbon Dioxide Anion Gap BUN Creatinine Est GFR ( Amer) Est GFR (Non-Af Amer) POC Glucose (mg/dL) 204 H Random Glucose Calcium Phosphorus Magnesium Total Bilirubin AST ALT Alkaline Phosphatase Total Protein Albumin Globulin Albumin/Globulin Ratio EKG/Cardiology Studies: Cardiology / EKG Studies 12/31/16 12:06 EKG [ELECTROCARDIOGRAM] Q6 Comment: Mode Of Transportation: Reason For Exam: chest pain Critical Care Progress Note - Nutrition Nutrition: Nutrition Category Date Time Status Consistent Carbohydrate [DIET] Diets 12/29/16 Lunch Active NPO Diet [DIET] Diets 01/01/17 Breakfast Active Attending/Attestation - Attestation I have personally seen and examined this patient.: Yes I have fully participated in the care of the patient.: Yes I have reviewed all pertinent clinical information: Yes Notes (Text): 12/31/16 18:54 Today: , December 31, 2016 The Patient was seen and examined at the bedside, Medical records reviewed, and management issues were discussed and formulated. All clinical/lab/hemodynamic/radiographic data were reviewed Events reviewed Pain issues, skin care, head of the bed elevation, glycemic control were addressed. Agree with above treatment plans as transcribed in Dr. Bess note
--- NOTE | 2016-12-31 18:24 | CP.PCM.PN ---
Subjective - Date & Time of Evaluation Date of Evaluation: 12/31/16 Time of Evaluation: 18:21 - Subjective Subjective: no cp no sob anxious re cath faheem Objective - Vital Signs/Intake and Output Vital Signs (last 24 hours): Temp Pulse Resp BP Pulse Ox 98.6 F 97 H 24 139/77 99 12/31/16 16:00 12/31/16 18:00 12/31/16 18:00 12/31/16 17:41 12/31/16 18:00 Intake and Output: 12/31/16 12/31/16 06:59 18:59 Intake Total 200 600 Output Total 900 600 Balance -700 0 - Medications Medications: Current Medications Aspirin (Aspirin Chewable) 81 mg PO DAILY [facility] Last Admin: 12/31/16 09:33 Dose: 81 mg Diltiazem HCl (Cardizem) 60 mg PO Q6 [facility] Last Admin: 12/30/16 05:59 Dose: Not Given Diltiazem HCl (Cardizem) 30 mg PO Q6H [facility] Last Admin: 12/31/16 16:31 Dose: 30 mg Enoxaparin Sodium (Lovenox) 80 mg SC Q12H [facility] Last Admin: 12/31/16 16:32 Dose: 80 mg Furosemide (Lasix) 20 mg IVP BID [facility] Last Admin: 12/31/16 17:41 Dose: 20 mg Guaifenesin/Dextromethorphan (Robitussin Dm) 10 ml PO Q4H PRN PRN Reason: Cough and congestion Last Admin: 12/29/16 06:14 Dose: 10 ml Insulin Human Regular (Novolin R) 0 unit SC ACHS [facility] PRN Reason: Protocol Last Admin: 12/31/16 16:31 Dose: 3 unit Metoprolol Tartrate (Lopressor) 5 mg IVP Q4 PRN PRN Reason: Heart rate Last Admin: 12/30/16 10:45 Dose: 5 mg Metoprolol Tartrate (Lopressor) 25 mg PO BID [facility] Last Admin: 12/31/16 17:41 Dose: 25 mg Pantoprazole Sodium (Protonix Ec Tab) 40 mg PO DAILY [facility] Last Admin: 12/31/16 09:33 Dose: 40 mg Rosuvastatin Calcium (Crestor) 20 mg PO HS [facility] Last Admin: 12/30/16 22:51 Dose: 20 mg Tramadol HCl (Ultram) 25 mg PO Q8 [facility] Last Admin: 12/31/16 14:45 Dose: 25 mg - Labs Labs: 12/31/16 06:27 12/31/16 06:20 PT 12.2 SECONDS (9.7-12.2) 12/31/16 11:26 INR 1.1 12/31/16 11:26 APTT 48 SECONDS (21-34) H 12/31/16 11:26 Assessment and Plan - Assessment and Plan (Free Text) Assessment: plan for cath faheem am
--- NOTE | 2016-12-31 21:40 | CP.PCM.PN ---
Subjective - Date & Time of Evaluation Date of Evaluation: 12/31/16 Time of Evaluation: 18:10 - Subjective Subjective: Patient comfortable CT angio negative for PE For cath tomorrow Objective - Vital Signs/Intake and Output Vital Signs (last 24 hours): Temp Pulse Resp BP Pulse Ox 98.4 F 78 22 128/42 L 90 L 12/31/16 20:00 12/31/16 21:00 12/31/16 21:00 12/31/16 20:33 12/31/16 21:00 Intake and Output: 12/31/16 01/01/17 18:59 06:59 Intake Total 950 200 Output Total 1350 Balance -400 200 - Medications Medications: Current Medications Aspirin (Aspirin Chewable) 81 mg PO DAILY [facility] Last Admin: 12/31/16 09:33 Dose: 81 mg Diltiazem HCl (Cardizem) 30 mg PO Q6H [facility] Last Admin: 12/31/16 16:31 Dose: 30 mg Enoxaparin Sodium (Lovenox) 80 mg SC Q12H [facility] Last Admin: 12/31/16 16:32 Dose: 80 mg Furosemide (Lasix) 20 mg IVP BID [facility] Last Admin: 12/31/16 17:41 Dose: 20 mg Guaifenesin/Dextromethorphan (Robitussin Dm) 10 ml PO Q4H PRN PRN Reason: Cough and congestion Last Admin: 12/29/16 06:14 Dose: 10 ml Insulin Human Regular (Novolin R) 0 unit SC ACHS [facility] PRN Reason: Protocol Last Admin: 12/31/16 21:12 Dose: Not Given Metoprolol Tartrate (Lopressor) 5 mg IVP Q4 PRN PRN Reason: Heart rate Last Admin: 12/30/16 10:45 Dose: 5 mg Metoprolol Tartrate (Lopressor) 50 mg PO BID [facility] Pantoprazole Sodium (Protonix Ec Tab) 40 mg PO DAILY [facility] Last Admin: 12/31/16 09:33 Dose: 40 mg Rosuvastatin Calcium (Crestor) 20 mg PO HS [facility] Last Admin: 12/31/16 21:10 Dose: 20 mg Tramadol HCl (Ultram) 25 mg PO Q8 [facility] Last Admin: 12/31/16 21:10 Dose: 25 mg - Labs Labs: 12/31/16 06:27 12/31/16 06:20 PT 12.2 SECONDS (9.7-12.2) 12/31/16 11:26 INR 1.1 12/31/16 11:26 APTT 48 SECONDS (21-34) H 12/31/16 11:26
[2017-01-01] MEDS: Enoxaparin 80 mg Syringe SC SCH ×2 (04:02→23:26)
[2017-01-01] MEDS: Tramadol 25 mg PO SCH ×3 (05:07→23:25)
[2017-01-01 06:21] LABS: BASO % 0.4 % (0.0-2.0); EOS # 0.2 K/uL (0.0-0.7); EOS % 1.7 % (0.0-4.0); HEMATOCRIT 39.8 % (34.0-47.0); LYMPH # 3.3 K/uL (1.0-4.3); LYMPH % 29.5 % (20.0-40.0); MEAN CELL VOLUME 85.5 fL (81.0-99.0); MEAN CORPUSCULAR HEMOGLOBIN 29.5 pg (27.0-31.0); MEAN CORPUSCULAR HGB CONC 34.5 g/dL (33.0-37.0); MEAN PLATELET VOLUME 9.3 fL (7.2-11.7); MONO # 0.6 K/uL (0.0-0.8); MONO % 5.7 % (0.0-10.0); RED CELL DISTRIBUTION WIDTH 13.9 % (11.5-14.5); WHITE BLOOD COUNT 11.3 K/uL (4.8-10.8)
[2017-01-01 06:38] LABS: ALKALINE PHOSPHATASE 74 U/L (38-126); ALT/SGPT 28 U/L (9-52); AST/SGOT 20 U/L (14-36); BILIRUBIN,TOTAL 0.5 mg/dL (0.2-1.3); BLOOD UREA NITROGEN 26 mg/dL (7-17); CALCIUM 9.7 mg/dl (8.6-10.4); CARBON DIOXIDE 27 mmol/L (22-30); CHLORIDE 94 mmol/L (98-107); GFR AFRICAN-AMERICAN > 60; GLUCOSE,RANDOM 250 mg/dL (65-105); MAGNESIUM 1.8 mg/dL (1.6-2.3); PHOSPHOROUS 4.1 mg/dL (2.5-4.5); POTASSIUM 3.7 mmol/L (3.6-5.2); SODIUM 132 mmol/L (132-148)
[2017-01-01] MEDS: (Novolin R) Insulin Human Regular 100 units/ml vial SC SCH ×5 (08:00→23:21)
[2017-01-01] MEDS ORDERED: Metoprolol 1 mg/ml Inj IVP ONE ×2 (08:29→10:48)
--- NOTE | 2017-01-01 09:44 | RAD ---
HISTORY: effusions COMPARISON: 12/30/2016 FINDINGS: LUNGS: There is persistent pulmonary venous congestion and mild interstitial pulmonary edema. There is bibasilar atelectasis. PLEURA: There is haziness in both lower lobes. No pneumothorax. CARDIOVASCULAR: Normal. OSSEOUS STRUCTURES: No significant abnormalities. VISUALIZED UPPER ABDOMEN: Normal. OTHER FINDINGS: None. IMPRESSION: No change in pulmonary venous congestion and interstitial edema. Haziness in both lower lobes could represent layering pleural effusions.
[2017-01-01] MEDS ORDERED: Midazolam 2 MG/2 ML VIAL ONE (10:29)
--- NOTE | 2017-01-01 11:13 | CP.PCM.PN ---
Subjective - Date & Time of Evaluation Date of Evaluation: 01/01/17 Time of Evaluation: 11:11 - Subjective Subjective: Patient s/p cath Normal Coronaries Normal EF Cardizem and correction anticoagulation for A Fib Resume therapeutic Lovenox from tonight OOB to ambulate from 2pm today Medical follow up Objective - Vital Signs/Intake and Output Vital Signs (last 24 hours): Temp Pulse Resp BP Pulse Ox 98.1 F 125 H 20 121/77 95 01/01/17 08:00 01/01/17 08:36 01/01/17 08:36 01/01/17 08:36 01/01/17 08:36 Intake and Output: 01/01/17 01/01/17 06:59 18:59 Intake Total 440 Output Total 150 Balance 440 -150 - Medications Medications: Current Medications Diltiazem HCl (Cardizem) 90 mg PO Q6H [facility] Enoxaparin Sodium (Lovenox) 70 mg SC Q12 [facility] Furosemide (Lasix) 20 mg IVP BID [facility] Last Admin: 12/31/16 17:41 Dose: 20 mg Guaifenesin/Dextromethorphan (Robitussin Dm) 10 ml PO Q4H PRN PRN Reason: Cough and congestion Last Admin: 12/29/16 06:14 Dose: 10 ml Insulin Human Regular (Novolin R) 0 unit SC ACHS [facility] PRN Reason: Protocol Last Admin: 01/01/17 08:00 Dose: Not Given Pantoprazole Sodium (Protonix Ec Tab) 40 mg PO DAILY [facility] Last Admin: 12/31/16 09:33 Dose: 40 mg Rosuvastatin Calcium (Crestor) 20 mg PO HS [facility] Last Admin: 12/31/16 21:10 Dose: 20 mg Tramadol HCl (Ultram) 25 mg PO Q8 [facility] Last Admin: 01/01/17 05:07 Dose: Not Given - Labs Labs: 01/01/17 06:16 01/01/17 06:16 PT 12.2 SECONDS (9.7-12.2) 12/31/16 11:26 INR 1.1 12/31/16 11:26 APTT 48 SECONDS (21-34) H 12/31/16 11:26
[2017-01-01] MEDS: Pantoprazole 40 mg EC Tab PO SCH (11:35)
--- NOTE | 2017-01-01 12:16 | CP.PCM.PN ---
Subjective - Date & Time of Evaluation Date of Evaluation: 01/01/17 Time of Evaluation: 12:12 - Subjective Subjective: Patient s/p cardiac cath. Still complaining of shoulder pain with motion. Daughter at bedside. Per Dr. Jacob note, ok for OOB after 2pm today Review of Systems - Review of Systems All systems: reviewed and no additional remarkable complaints except - Cardiovascular Cardiovascular: Rapid Heart Rate - Musculoskeletal Musculoskeletal: As Par HPI - Integumentary Integumentary: UNREMARKABLE - Neurological Neurological: UNREMARKABLE - Hematologic/Lymphatic Hematologic: UNREMARKABLE Objective - Vital Signs/Intake and Output Vital Signs (last 24 hours): Temp Pulse Resp BP Pulse Ox 98.1 F 125 H 20 104/55 L 95 01/01/17 08:00 01/01/17 08:36 01/01/17 08:36 01/01/17 11:35 01/01/17 08:36 Intake and Output: 01/01/17 01/01/17 06:59 18:59 Intake Total 440 Output Total 150 Balance 440 -150 - Medications Medications: Current Medications Acetaminophen (Tylenol 325mg Tab) 650 mg PO Q6 PRN PRN Reason: Pain, Mild (1-3) Last Admin: 01/01/17 12:00 Dose: 650 mg Diltiazem HCl (Cardizem) 90 mg PO Q6H [facility] Last Admin: 01/01/17 12:00 Dose: 90 mg Enoxaparin Sodium (Lovenox) 70 mg SC Q12 [facility] Furosemide (Lasix) 20 mg IVP BID [facility] Last Admin: 01/01/17 11:35 Dose: 20 mg Guaifenesin/Dextromethorphan (Robitussin Dm) 10 ml PO Q4H PRN PRN Reason: Cough and congestion Last Admin: 12/29/16 06:14 Dose: 10 ml Insulin Human Regular (Novolin R) 0 unit SC ACHS [facility] PRN Reason: Protocol Last Admin: 01/01/17 12:02 Dose: 4 unit Pantoprazole Sodium (Protonix Ec Tab) 40 mg PO DAILY [facility] Last Admin: 01/01/17 11:35 Dose: 40 mg Rosuvastatin Calcium (Crestor) 20 mg PO HS [facility] Last Admin: 12/31/16 21:10 Dose: 20 mg Tramadol HCl (Ultram) 25 mg PO Q8 [facility] Last Admin: 01/01/17 05:07 Dose: Not Given - Labs Labs: 01/01/17 06:16 01/01/17 06:16 PT 12.2 SECONDS (9.7-12.2) 12/31/16 11:26 INR 1.1 12/31/16 11:26 APTT 48 SECONDS (21-34) H 12/31/16 11:26 - Constitutional Appears: Well, No Acute Distress - Cardiovascular Exam Additional comments: +radial pulse - Extremities Exam Additional comments: Right shoulder: no swelling/discoloration/deformity TTP anterior and posterior shoulder and upper trap sensation intact - Neurological Exam Neurological Exam: Alert, Awake Neuro motor strength exam: Right Upper Extremity: 5 (wrist/fingers/elbow) - Psychiatric Exam Psychiatric exam: Normal Affect, Normal Mood - Skin Skin Exam: Dry, Intact, Normal Color, Warm Assessment and Plan (1) Right shoulder pain Assessment & Plan: possible rotator cuff sprain/tear awaiting MRI, non urgent, can be followed up as outpatient if necessary PT/OT ROM right shoulder OOB encouraged ice to right shoulder as needed pain meds as per medical team d/w Dr. Woods, agrees with above [phone] call for appointment within 1 week Status: Chronic
[2017-01-01] MEDS ORDERED: Sodium Chloride 0.9% 250 ML IV ONE (13:32)
--- NOTE | 2017-01-01 16:24 | CARD ---
APPROVED REPORT EKG Measurement Heart [id number] <Conclusion> Atrial fibrillation with rapid ventricular response Low voltage QRS Left posterior fascicular block Abnormal QRS-T angle, consider primary T wave abnormality Abnormal ECG
--- NOTE | 2017-01-01 17:48 | CP.CCUPN ---
<Arabella BessPeggy - Last Filed: 01/01/17 17:38> CCU Subjective - Physician Review Subjective (Free Text): Patient was seen and examined at bedside in the morning. Patient was anxious because she is going for cardiac cath today. She reports feeling her heart beat very fast. She feels less short of breath. Patient denies chest pain, abdominal pain, nausea, vomiting, diarrhea, and dizziness. 01/01/17 17:38 CCU Objective - Vital Signs / Intake & Output Vital Signs (Last 4 hours): Vital Signs Temp Pulse Resp BP Pulse Ox 01/01/17 16:30 87 99/69 L 96 01/01/17 16:08 92 H 20 90/62 L 95 01/01/17 16:00 98.1 F 01/01/17 15:07 83 18 96/60 L 94 L 01/01/17 14:37 89 17 103/60 93 L 01/01/17 14:09 93 H 19 98/60 L 01/01/17 14:05 95 H 24 91/56 L 01/01/17 14:00 83 21 94 L Intake and Output (Last 8hrs): Intake & Output 01/01/17 01/01/17 01/01/17 06:59 14:59 22:59 Intake Total 240 610 240 Output Total 550 900 Balance 240 60 -660 Intake: Intake, IV Amount 250 Right Forearm 250 Oral 240 360 240 Output: Urine 550 900 Urine, Voided 550 900 Other: # Voids Urine, Voided 1 1 - Physical Exam Head: Positive for: Atraumatic, Normocephalic Extroacular Muscles: Positive for: EOMI Mouth: Positive for: Moist Mucous Membranes Respiratory/Chest: Positive for: Decreased Breath Sounds, Rales. Negative for: Clear to Auscultation Cardiovascular: Positive for: Normal S1, S2, Irregular Rhythm, Peripheal Pulses Present, Tachycardic Abdomen: Positive for: Normal Bowel Sounds. Negative for: Tenderness Upper Extremity: Positive for: Normal Inspection. Negative for: Edema Lower Extremity: Positive for: Edema. Negative for: Normal Inspection Skin: Positive for: Warm, Dry, Normal Color Psychiatric: Positive for: Alert, Oriented x 3, Normal Affect, Anxious - Medications Active Medications: Active Medications Generic Name Dose Route Start Last Admin Trade Name Freq PRN Reason Stop Dose Admin Acetaminophen 650 mg 01/01/17 11:45 08/18/17 12:00 Tylenol 325mg Tab PO 650 mg Q6 PRN Administration Pain, Mild (1-3) Diltiazem HCl 90 mg 01/01/17 11:09 01/01/17 12:00 Cardizem PO 90 mg Q6H [facility] Administration Enoxaparin Sodium 70 mg 01/01/17 22:00 Lovenox SC Q12 [facility] Furosemide 20 mg 12/28/16 10:00 01/01/17 11:35 Lasix IVP 20 mg BID [facility] Administration Guaifenesin/Dextromethorphan 10 ml 12/29/16 05:44 12/29/16 06:14 Robitussin Dm PO 10 ml Q4H PRN Administration Cough and congestion Insulin Human Regular 0 unit 12/27/16 22:00 01/01/17 17:09 Novolin R SC 3 unit ACHS [facility] Administration Protocol Pantoprazole Sodium 40 mg 12/28/16 10:00 01/01/17 11:35 Protonix Ec Tab PO 40 mg DAILY [facility] Administration Rosuvastatin Calcium 20 mg 12/27/16 22:00 12/31/16 21:10 Crestor PO 20 mg HS [facility] Administration Tramadol HCl 25 mg 12/28/16 22:00 01/01/17 14:14 Ultram PO Not Given Q8 [facility] - Patient Studies Lab Studies: Lab Studies 01/01/17 01/01/17 01/01/17 Range/Units 16:35 11:51 08:36 WBC (4.8-10.8) K/uL RBC (3.80-5.20) Mil/uL Hgb (11.0-16.0) g/dL Hct (34.0-47.0) % MCV (81.0-99.0) fL MCH (27.0-31.0) pg MCHC (33.0-37.0) g/dL RDW (11.5-14.5) % Plt Count (130-400) K/uL MPV (7.2-11.7) fL Neut % (Auto) (50.0-75.0) % Lymph % (Auto) (20.0-40.0) % [place] % (Auto) (0.0-10.0) % Eos % (Auto) (0.0-4.0) % Baso % (Auto) (0.0-2.0) % Neut # (1.8-7.0) K/uL Lymph # (1.0-4.3) K/uL [place] # (0.0-0.8) K/uL Eos # (0.0-0.7) K/uL Baso # (0.0-0.2) K/uL Sodium (132-148) mmol/L Potassium (3.6-5.2) mmol/L Chloride (98-107) mmol/L Carbon Dioxide (22-30) mmol/L Anion Gap (10-20) BUN (7-17) mg/dL Creatinine (0.7-1.2) MG/DL Est GFR ( Amer) Est GFR (Non-Af Amer) POC Glucose (mg/dL) 242 H 277 H 245 H (65-110) mg/dL Random Glucose (65-105) mg/dL Calcium (8.6-10.4) mg/dl Phosphorus (2.5-4.5) mg/dL Magnesium (1.6-2.3) mg/dL Total Bilirubin (0.2-1.3) mg/dL AST (14-36) U/L ALT (9-52) U/L Alkaline Phosphatase (38-126) U/L Total Protein (6.3-8.3) g/dL Albumin (3.5-5.0) g/dL Globulin (2.2-3.9) gm/dL Albumin/Globulin Ratio (1.0-2.1) 01/01/17 01/01/17 12/31/16 Range/Units 06:16 06:16 21:11 WBC 11.3 H (4.8-10.8) K/uL RBC 4.65 (3.80-5.20) Mil/uL Hgb 13.7 (11.0-16.0) g/dL Hct 39.8 (34.0-47.0) % MCV 85.5 (81.0-99.0) fL MCH 29.5 (27.0-31.0) pg MCHC 34.5 (33.0-37.0) g/dL RDW 13.9 (11.5-14.5) % Plt Count 199 (130-400) K/uL MPV 9.3 (7.2-11.7) fL Neut % (Auto) 62.7 (50.0-75.0) % Lymph % (Auto) 29.5 (20.0-40.0) % [place] % (Auto) 5.7 (0.0-10.0) % Eos % (Auto) 1.7 (0.0-4.0) % Baso % (Auto) 0.4 (0.0-2.0) % Neut # 7.1 H (1.8-7.0) K/uL Lymph # 3.3 (1.0-4.3) K/uL [place] # 0.6 (0.0-0.8) K/uL Eos # 0.2 (0.0-0.7) K/uL Baso # 0.0 (0.0-0.2) K/uL Sodium 132 (132-148) mmol/L Potassium 3.7 (3.6-5.2) mmol/L Chloride 94 L (98-107) mmol/L Carbon Dioxide 27 (22-30) mmol/L Anion Gap 15 (10-20) BUN 26 H (7-17) mg/dL Creatinine 0.8 (0.7-1.2) MG/DL Est GFR ( Amer) > 60 Est GFR (Non-Af Amer) > 60 POC Glucose (mg/dL) 205 H (65-110) mg/dL Random Glucose 250 H (65-105) mg/dL Calcium 9.7 (8.6-10.4) mg/dl Phosphorus 4.1 (2.5-4.5) mg/dL Magnesium 1.8 (1.6-2.3) mg/dL Total Bilirubin 0.5 (0.2-1.3) mg/dL AST 20 (14-36) U/L ALT 28 (9-52) U/L Alkaline Phosphatase 74 (38-126) U/L Total Protein 7.0 (6.3-8.3) g/dL Albumin 3.5 (3.5-5.0) g/dL Globulin 3.5 (2.2-3.9) gm/dL Albumin/Globulin Ratio 1.0 (1.0-2.1) Laboratory Results - last 24 hr 12/31/16 01/01/1701/01/17 21:11 06:16 06:16 WBC 11.3 H RBC 4.65 Hgb 13.7 Hct 39.8 MCV 85.5 MCH 29.5 MCHC 34.5 RDW 13.9 Plt Count 199 MPV 9.3 Neut % (Auto) 62.7 Lymph % (Auto) 29.5 [place] % (Auto) 5.7 Eos % (Auto) 1.7 Baso % (Auto) 0.4 Neut # 7.1 H Lymph # 3.3 [place] # 0.6 Eos # 0.2 Baso # 0.0 Sodium 132 Potassium 3.7 Chloride 94 L Carbon Dioxide 27 Anion Gap 15 BUN 26 H Creatinine 0.8 Est GFR ( Amer) > 60 Est GFR (Non-Af Amer) > 60 POC Glucose (mg/dL) 205 H Random Glucose 250 H Calcium 9.7 Phosphorus 4.1 Magnesium 1.8 Total Bilirubin 0.5 AST 20 ALT 28 Alkaline Phosphatase 74 Total Protein 7.0 Albumin 3.5 Globulin 3.5 Albumin/Globulin Ratio 1.0 01/01/17 01/01/17 01/01/17 08:36 11:51 16:35 WBC RBC Hgb Hct MCV MCH MCHC RDW Plt Count MPV Neut % (Auto) Lymph % (Auto) [place] % (Auto) Eos % (Auto) Baso % (Auto) Neut # Lymph # [place] # Eos # Baso # Sodium Potassium Chloride Carbon Dioxide Anion Gap BUN Creatinine Est GFR ( Amer) Est GFR (Non-Af Amer) POC Glucose (mg/dL) 245 H 277 H 242 H Random Glucose Calcium Phosphorus Magnesium Total Bilirubin AST ALT Alkaline Phosphatase Total Protein Albumin Globulin Albumin/Globulin Ratio Fingerstick Blood Sugar Results: 242 Review of Systems - Constitutional Constitutional: absent: Fever - Cardiovascular Cardiovascular: Irregular Heart Rhythm, Rapid Heart Rate. absent: Chest Pain, Dyspnea - Respiratory Respiratory: absent: Cough, Dyspnea - Gastrointestinal Gastrointestinal: absent: Abdominal Pain, Constipation, Diarrhea, Nausea, Vomiting - Genitourinary Genitourinary: absent: Dysuria - Neurological Neurological: absent: Dizziness, Headaches - Psychiatric Psychiatric: Anxiety Critical Care Progress Note - Nutrition Nutrition: Nutrition Category Date Time Status Heart Healthy Diet [DIET] Diets 01/01/17 Lunch Active Assessment/Plan (1) Dyspnea Assessment and plan: 56 year old female with medical history of DM, presents with SOB, cough with white sputum, fast heart rate and chest pain for one week. Patient has new onset of A-Fib & CHF, severe MR and moderate Aortic stenosis. Patient was went for cardiac cath but was canceled due to hypoxia and dyspnea. Patient was transferred to the ICU. Patient is on BiPAP prn, cardizem PO, lopressor, lasix, crestor and ASA. Patient went for cardiac cath, 01/01/17. Currently holding lasix due to BP of 99/69. Continue to monitor. Neuro: Alert, oriented, anxious about cardiac cath Pulm: Hypoxic, Dyspnea likely secondary to CHF exacerbation - Nasal Canula, BiPAP prn - O2 saturation-- improved - CXR: Bibasilar interval increase coalescent pulmonary edema; patchy bibasilar infiltrates; increased CHF - Robitussin for cough - Chest CT: moderate B/L pleural effusions, R>L with compressive atelectasis in lower lobes; patchy ground-glass attenuation in both lungs-- pulmonary edema; no evidence of acute PE. - IR consulted for thoracentesis- cancelled - Pleural effusion US: f/u official report CV: - New onset CHF - New onset A-fib - Elevated troponins, NSTEMI --> cardiac cath canceled on 12/29/16 due to hypoxia and SOB; - Continue cardizem PO - Continue Lopressor 5mg, Crestor 20mg, ASA 81mg (holding Lasix 20mg due to BP 99/69) - CXR: increased CHF, Pulmonary edema - ECHO: EF 83%; RA and LA moderately dilated; mild to mod aortic stenosis and regurgitation; mild mitral valve stenosis; moderate to severe mitral regurg; mod -to-severe tricuspid regurg, pulmonic valvular regurg, and moderate left pleural effusion. - Cardiology consulted: Dr. Jacob, help appreciated - Cardiac cath: no coronary disease Endo: Hx of DM - Monitor blood glucose - ISS GI: no acute issues - Protonix Heme: no acute issues Renal: no acute issues MSK: Right shoulder pain - Xray: no acute displaced fracture or dislocation - Tramadol for pain ID: no acute issues - Procalcitonin: 0.05 Prophylaxis: - DVT: Lovenox 80mg sc - GI: protonix - PT/OT Current Visit: Yes Status: Acute <AubreefGeovany M - Last Filed: 01/02/17 23:09> CCU Objective - Vital Signs / Intake & Output Vital Signs (Last 4 hours): Vital Signs Temp Pulse Resp BP Pulse Ox 01/02/17 20:10 63 20 117/67 99 01/02/17 20:00 98.3 F 67 Intake and Output (Last 8hrs): Intake & Output 01/02/17 01/02/17 01/03/17 14:59 22:59 06:59 Intake Total 480 Output Total 1100 Balance -620 Intake: Oral 480 Output: Urine 1100 Urine, Voided 1100 Other: # Voids Urine, Voided 1 - Medications Active Medications: Active Medications Generic Name Dose Route Start Last Admin Trade Name Freq PRN Reason Stop Dose Admin Acetaminophen 650 mg 01/01/17 11:45 01/02/17 08:47 Tylenol 325mg Tab PO 650 mg Q6 PRN Administration Pain, Mild (1-3) Digoxin 0.25 mg 01/02/17 10:00 01/02/17 09:41 Lanoxin PO 0.25 mg DAILY@1800 [facility] Administration Diltiazem HCl 90 mg 01/01/17 11:09 01/02/17 22:55 Cardizem PO 90 mg Q6H [facility] Administration Enoxaparin Sodium 70 mg 01/01/17 22:00 01/02/17 22:55 Lovenox SC 70 mg Q12 [facility] Administration Furosemide 20 mg 12/28/16 10:00 01/01/17 11:35 Lasix IVP 20 mg BID [facility] Administration Guaifenesin/Dextromethorphan 10 ml 12/29/16 05:44 12/29/16 06:14 Robitussin Dm PO 10 ml Q4H PRN Administration Cough and congestion Insulin Human Regular 0 unit 12/27/16 22:00 01/02/17 22:00 Novolin R SC Not Given ACHS [facility] Protocol Pantoprazole Sodium 40 mg 12/28/16 10:00 01/02/17 09:41 Protonix Ec Tab PO 40 mg DAILY [facility] Administration Rosuvastatin Calcium 20 mg 12/27/16 22:00 01/02/17 22:55 Crestor PO 20 mg HS [facility] Administration Tramadol HCl 25 mg 12/28/16 22:00 01/02/17 23:00 Ultram PO 25 mg Q8 [facility] Administration - Patient Studies Lab Studies: Lab Studies 01/02/17 01/02/17 01/02/17 Range/Units 21:58 16:44 11:27 WBC (4.8-10.8) K/uL RBC (3.80-5.20) Mil/uL Hgb (11.0-16.0) g/dL Hct (34.0-47.0) % MCV (81.0-99.0) fL MCH (27.0-31.0) pg MCHC (33.0-37.0) g/dL RDW (11.5-14.5) % Plt Count (130-400) K/uL MPV (7.2-11.7) fL Neut % (Auto) (50.0-75.0) % Lymph % (Auto) (20.0-40.0) % [place] % (Auto) (0.0-10.0) % Eos % (Auto) (0.0-4.0) % Baso % (Auto) (0.0-2.0) % Neut # (1.8-7.0) K/uL Lymph # (1.0-4.3) K/uL [place] # (0.0-0.8) K/uL Eos # (0.0-0.7) K/uL Baso # (0.0-0.2) K/uL Sodium (132-148) mmol/L Potassium (3.6-5.2) mmol/L Chloride (98-107) mmol/L Carbon Dioxide (22-30) mmol/L Anion Gap (10-20) BUN (7-17) mg/dL Creatinine (0.7-1.2) MG/DL Est GFR ( Amer) Est GFR (Non-Af Amer) POC Glucose (mg/dL) 212 H 267 H 307 H (65-110) mg/dL Random Glucose (65-105) mg/dL Calcium (8.6-10.4) mg/dl Phosphorus (2.5-4.5) mg/dL Magnesium (1.6-2.3) mg/dL Total Bilirubin (0.2-1.3) mg/dL AST (14-36) U/L ALT (9-52) U/L Alkaline Phosphatase (38-126) U/L Total Protein (6.3-8.3) g/dL Albumin (3.5-5.0) g/dL Globulin (2.2-3.9) gm/dL Albumin/Globulin Ratio (1.0-2.1) 01/02/17 01/02/17 01/02/17 Range/Units 07:17 06:47 06:47 WBC 11.7 H (4.8-10.8) K/uL RBC 4.47 (3.80-5.20) Mil/uL Hgb 12.9 (11.0-16.0) g/dL Hct 38.2 (34.0-47.0) % MCV 85.5 (81.0-99.0) fL MCH 28.9 (27.0-31.0) pg MCHC 33.8 (33.0-37.0) g/dL RDW 13.9 (11.5-14.5) % Plt Count 204 (130-400) K/uL MPV 9.5 (7.2-11.7) fL Neut % (Auto) 64.5 (50.0-75.0) % Lymph % (Auto) 28.5 (20.0-40.0) % [place] % (Auto) 4.8 (0.0-10.0) % Eos % (Auto) 1.7 (0.0-4.0) % Baso % (Auto) 0.5 (0.0-2.0) % Neut # 7.6 H (1.8-7.0) K/uL Lymph # 3.3 (1.0-4.3) K/uL [place] # 0.6 (0.0-0.8) K/uL Eos # 0.2 (0.0-0.7) K/uL Baso # 0.1 (0.0-0.2) K/uL Sodium 130 L (132-148) mmol/L Potassium 3.9 (3.6-5.2) mmol/L Chloride 95 L (98-107) mmol/L Carbon Dioxide 24 (22-30) mmol/L Anion Gap 15 (10-20) BUN 29 H (7-17) mg/dL Creatinine 0.7 (0.7-1.2) MG/DL Est GFR ( Amer) > 60 Est GFR (Non-Af Amer) > 60 POC Glucose (mg/dL) 238 H (65-110) mg/dL Random Glucose 240 H (65-105) mg/dL Calcium 9.3 (8.6-10.4) mg/dl Phosphorus 3.4 (2.5-4.5) mg/dL Magnesium 1.7 (1.6-2.3) mg/dL Total Bilirubin 0.4 (0.2-1.3) mg/dL AST 23 (14-36) U/L ALT 25 (9-52) U/L Alkaline Phosphatase 76 (38-126) U/L Total Protein 6.8 (6.3-8.3) g/dL Albumin 3.4 L (3.5-5.0) g/dL Globulin 3.5 (2.2-3.9) gm/dL Albumin/Globulin Ratio 1.0 (1.0-2.1) Laboratory Results - last 24 hr 01/02/17 01/02/17 01/02/17 06:47 06:47 07:17 WBC 11.7 H RBC 4.47 Hgb 12.9 Hct 38.2 MCV 85.5 MCH 28.9 MCHC 33.8 RDW 13.9 Plt Count 204 MPV 9.5 Neut % (Auto) 64.5 Lymph % (Auto) 28.5 [place] % (Auto) 4.8 Eos % (Auto) 1.7 Baso % (Auto) 0.5 Neut # 7.6 H Lymph # 3.3 [place] # 0.6 Eos # 0.2 Baso # 0.1 Sodium 130 L Potassium 3.9 Chloride 95 L Carbon Dioxide 24 Anion Gap 15 BUN 29 H Creatinine 0.7 Est GFR ( Amer) > 60 Est GFR (Non-Af Amer) > 60 POC Glucose (mg/dL) 238 H Random Glucose 240 H Calcium 9.3 Phosphorus 3.4 Magnesium 1.7 Total Bilirubin 0.4 AST 23 ALT 25 Alkaline Phosphatase 76 Total Protein 6.8 Albumin 3.4 L Globulin 3.5 Albumin/Globulin Ratio 1.0 01/02/17 01/02/17 01/02/17 11:27 16:44 21:58 WBC RBC Hgb Hct MCV MCH MCHC RDW Plt Count MPV Neut % (Auto) Lymph % (Auto) [place] % (Auto) Eos % (Auto) Baso % (Auto) Neut # Lymph # [place] # Eos # Baso # Sodium Potassium Chloride Carbon Dioxide Anion Gap BUN Creatinine Est GFR ( Amer) Est GFR (Non-Af Amer) POC Glucose (mg/dL) 307 H 267 H 212 H Random Glucose Calcium Phosphorus Magnesium Total Bilirubin AST ALT Alkaline Phosphatase Total Protein Albumin Globulin Albumin/Globulin Ratio Critical Care Progress Note - Nutrition Nutrition: Nutrition Category Date Time Status Heart Healthy Diet [DIET] Diets 01/01/17 Lunch Active Attending/Attestation - Attestation I have personally seen and examined this patient.: Yes I have fully participated in the care of the patient.: Yes I have reviewed all pertinent clinical information: Yes Notes (Text): Today: Wednesday, January 01, 2017 The Patient was seen and examined at the bedside, Medical records reviewed, and management issues were discussed and formulated. All clinical/lab/hemodynamic/radiographic data were reviewed Events reviewed Pain issues, skin care, head of the bed elevation, glycemic control were addressed. Agree with above treatment plans as transcribed in Dr. Bess note
--- NOTE | 2017-01-01 19:00 | CP.PCM.PN ---
Subjective - Date & Time of Evaluation Date of Evaluation: 01/01/17 Time of Evaluation: 18:58 - Subjective Subjective: post cath developed hypotension due to multiple meds cath clean coronary Objective - Vital Signs/Intake and Output Vital Signs (last 24 hours): Temp Pulse Resp BP Pulse Ox 98.1 F 80 28 H 108/70 97 01/01/17 16:00 01/01/17 18:28 01/01/17 18:28 01/01/17 18:28 01/01/17 18:28 Intake and Output: 01/01/17 01/01/17 06:59 18:59 Intake Total 440 850 Output Total 1450 Balance 440 -600 - Medications Medications: Current Medications Acetaminophen (Tylenol 325mg Tab) 650 mg PO Q6 PRN PRN Reason: Pain, Mild (1-3) Last Admin: 01/01/17 12:00 Dose: 650 mg Digoxin (Lanoxin) 0.25 mg PO DAILY [facility] Diltiazem HCl (Cardizem) 90 mg PO Q6H [facility] Last Admin: 01/01/17 18:06 Dose: 90 mg Enoxaparin Sodium (Lovenox) 70 mg SC Q12 [facility] Furosemide (Lasix) 20 mg IVP BID [facility] Last Admin: 01/01/17 11:35 Dose: 20 mg Guaifenesin/Dextromethorphan (Robitussin Dm) 10 ml PO Q4H PRN PRN Reason: Cough and congestion Last Admin: 12/29/16 06:14 Dose: 10 ml Insulin Human Regular (Novolin R) 0 unit SC ACHS [facility] PRN Reason: Protocol Last Admin: 01/01/17 17:09 Dose: 3 unit Pantoprazole Sodium (Protonix Ec Tab) 40 mg PO DAILY [facility] Last Admin: 01/01/17 11:35 Dose: 40 mg Rosuvastatin Calcium (Crestor) 20 mg PO HS [facility] Last Admin: 12/31/16 21:10 Dose: 20 mg Tramadol HCl (Ultram) 25 mg PO Q8 [facility] Last Admin: 01/01/17 14:14 Dose: Not Given - Labs Labs: 01/01/17 06:16 01/01/17 06:16 PT 12.2 SECONDS (9.7-12.2) 12/31/16 11:26 INR 1.1 12/31/16 11:26 APTT 48 SECONDS (21-34) H 08/17/17 11:26 Assessment and Plan - Assessment and Plan (Free Text) Assessment: no cad on cath afib hypotension start dig better for rate control and wont drop bp monitor renal function holding lasix may need to be restarted faheem
[2017-01-02] MEDS: Tramadol 25 mg PO SCH ×3 (05:04→23:00)
[2017-01-02 06:54] LABS: BASO # 0.1 K/uL (0.0-0.2); BASO % 0.5 % (0.0-2.0); EOS # 0.2 K/uL (0.0-0.7); EOS % 1.7 % (0.0-4.0); HEMATOCRIT 38.2 % (34.0-47.0); LYMPH # 3.3 K/uL (1.0-4.3); LYMPH % 28.5 % (20.0-40.0); MEAN CELL VOLUME 85.5 fL (81.0-99.0); MEAN CORPUSCULAR HEMOGLOBIN 28.9 pg (27.0-31.0); MEAN CORPUSCULAR HGB CONC 33.8 g/dL (33.0-37.0); MEAN PLATELET VOLUME 9.5 fL (7.2-11.7); MONO # 0.6 K/uL (0.0-0.8); MONO % 4.8 % (0.0-10.0); RED CELL DISTRIBUTION WIDTH 13.9 % (11.5-14.5); WHITE BLOOD COUNT 11.7 K/uL (4.8-10.8)
[2017-01-02 07:20] LABS: ALKALINE PHOSPHATASE 76 U/L (38-126); ALT/SGPT 25 U/L (9-52); AST/SGOT 23 U/L (14-36); BILIRUBIN,TOTAL 0.4 mg/dL (0.2-1.3); BLOOD UREA NITROGEN 29 mg/dL (7-17); CALCIUM 9.3 mg/dl (8.6-10.4); CARBON DIOXIDE 24 mmol/L (22-30); CHLORIDE 95 mmol/L (98-107); GFR AFRICAN-AMERICAN > 60; GLUCOSE,RANDOM 240 mg/dL (65-105); MAGNESIUM 1.7 mg/dL (1.6-2.3); PHOSPHOROUS 3.4 mg/dL (2.5-4.5); POTASSIUM 3.9 mmol/L (3.6-5.2); SODIUM 130 mmol/L (132-148); TOTAL PROTEIN 6.8 g/dL (6.3-8.3)
[2017-01-02] MEDS: (Novolin R) Insulin Human Regular 100 units/ml vial SC SCH ×4 (08:46→22:00)
[2017-01-02] MEDS: Pantoprazole 40 mg EC Tab PO SCH (09:41)
[2017-01-02] MEDS: Enoxaparin 80 mg Syringe SC SCH ×2 (09:41→22:55)
[2017-01-02] MEDS: Digoxin 250 mcg (0.25 mg) Tab PO SCH (09:41)
--- NOTE | 2017-01-02 16:43 | CP.PCM.PN ---
Subjective - Date & Time of Evaluation Date of Evaluation: 01/02/17 Time of Evaluation: 16:30 - Subjective Subjective: Patient was seen and examined. Discussion is somewhat limited due to language however I reviewed previous notes. Family present as well. At some point will be transferred out of ICU either today or tomorrow. She is S/P cardiac cath and the coronaries are ok. Currently on digxon and cardizem for rate control of her atrial fibrillation. Currently on lovenox SC BID for anticoagulation. She also has CHF and is on 20 lasix IV at this time. Along with the CHF she had severe MR and moderate aortic stenosis seen on echo. Objective - Vital Signs/Intake and Output Vital Signs (last 24 hours): Temp Pulse Resp BP Pulse Ox 98.4 F 65 22 105/64 99 01/02/17 08:00 01/02/17 15:28 01/02/17 15:28 01/02/17 15:28 01/02/17 15:28 Intake and Output: 01/02/17 01/02/17 06:59 18:59 Output Total 1000 Balance -1000 - Medications Medications: Current Medications Acetaminophen (Tylenol 325mg Tab) 650 mg PO Q6 PRN PRN Reason: Pain, Mild (1-3) Last Admin: 01/02/17 08:47 Dose: 650 mg Digoxin (Lanoxin) 0.25 mg PO DAILY@1800 [facility] Last Admin: 01/02/17 09:41 Dose: 0.25 mg Diltiazem HCl (Cardizem) 90 mg PO Q6H [facility] Last Admin: 01/02/17 12:31 Dose: 90 mg Enoxaparin Sodium (Lovenox) 70 mg SC Q12 [facility] Last Admin: 01/02/17 09:41 Dose: 70 mg Furosemide (Lasix) 20 mg IVP BID [facility] Last Admin: 01/01/17 11:35 Dose: 20 mg Guaifenesin/Dextromethorphan (Robitussin Dm) 10 ml PO Q4H PRN PRN Reason: Cough and congestion Last Admin: 12/29/16 06:14 Dose: 10 ml Insulin Human Regular (Novolin R) 0 unit SC ACHS [facility] PRN Reason: Protocol Last Admin: 01/02/17 12:32 Dose: 6 unit Pantoprazole Sodium (Protonix Ec Tab) 40 mg PO DAILY [facility] Last Admin: 01/02/17 09:41 Dose: 40 mg Rosuvastatin Calcium (Crestor) 20 mg PO HS [facility] Last Admin: 01/01/17 23:25 Dose: 20 mg Tramadol HCl (Ultram) 25 mg PO Q8 [facility] Last Admin: 01/02/17 15:32 Dose: Not Given - Labs Labs: 01/02/17 06:47 01/02/17 06:47 PT 12.2 SECONDS (9.7-12.2) 12/31/16 11:26 INR 1.1 12/31/16 11:26 APTT 48 SECONDS (21-34) H 12/31/16 11:26 - Constitutional Appears: No Acute Distress - Head Exam Head Exam: NORMAL INSPECTION - Eye Exam Eye Exam: EOMI, Normal appearance - ENT Exam ENT Exam: Mucous Membranes Moist - Respiratory Exam Respiratory Exam: Decreased Breath Sounds, NORMAL BREATHING PATTERN Additional comments: Despite translation, it does not appear patient understands to take deep breaths in and out. This being said she is able to speak in full sentences and does not appear short of breath - Cardiovascular Exam Cardiovascular Exam: Irregular Rhythm - GI/Abdominal Exam GI & Abdominal Exam: Soft, Normal Bowel Sounds - Neurological Exam Neurological Exam: Alert, Awake, CN II-XII Intact, Oriented x3 Neuro motor strength exam: Left Upper Extremity: 5, Right Upper Extremity: 5 - Psychiatric Exam Psychiatric exam: Depressed, Flat Affect - Skin Skin Exam: Normal Color, Warm Assessment and Plan - Assessment and Plan (Free Text) Assessment: Shortness of breath: 01/02: Maybe secondary to CHF and pleural effusion. Is on lasix, however may require thoracentesis in the future CHF with severe MR and moderate aortic stenosis: 01/02: Has been getting low dose IV lasix that does required to be held from time to time. Continue to follows I and Os. follow CXRAYs. There is moderate bilateral pleural effusions seen on the CT scan. She may need a thoracentis in future. Atrial fibrillation: 01/02: Currently on cardizem and digoxin for rate controll. On lovenox SC BID for anticoagulation. We will need to get a good date pitter to come and explain to the patient as well as the family what is going as I am under the impression that they do not know what is happening. DM: On SSI at this time the Accuchecks are 200 to 270
--- NOTE | 2017-01-02 18:19 | CARD ---
APPROVED REPORT EKG Measurement Heart [id number] <Conclusion> Atrial flutter with variable AV block Abnormal ECG
--- NOTE | 2017-01-02 23:30 | CP.PCM.PN ---
Subjective - Date & Time of Evaluation Date of Evaluation: 01/02/17 Time of Evaluation: 14:00 - Subjective Subjective: Patient comfortable 1. Normal Coronaries 2. A Fib 3. Severe Pulmonary HTN 4. Mild to Moderate MR 5. CHF with Normal Ef Recommend medical management with 1. intermediate project manager anticoagulation 2. Cardizem for rate control 3. Lasix PRN for Dyspnea F/U [facility] in [facility] [place] for further management I will sign off Please re consult if necessary Objective - Vital Signs/Intake and Output Vital Signs (last 24 hours): Temp Pulse Resp BP Pulse Ox 98.3 F 63 20 117/67 99 01/02/17 20:00 01/02/17 20:10 01/02/17 20:10 01/02/17 20:10 01/02/17 20:10 Intake and Output: 01/02/17 01/03/17 18:59 06:59 Intake Total 240 240 Output Total 1100 Balance -860 240 - Medications Medications: Current Medications Acetaminophen (Tylenol 325mg Tab) 650 mg PO Q6 PRN PRN Reason: Pain, Mild (1-3) Last Admin: 01/02/17 08:47 Dose: 650 mg Apixaban (Eliquis) 5 mg PO BID [facility] Digoxin (Lanoxin) 0.25 mg PO DAILY@1800 [facility] Last Admin: 01/02/17 09:41 Dose: 0.25 mg Diltiazem HCl (Cardizem) 90 mg PO Q6H [facility] Last Admin: 01/02/17 22:55 Dose: 90 mg Guaifenesin/Dextromethorphan (Robitussin Dm) 10 ml PO Q4H PRN PRN Reason: Cough and congestion Last Admin: 12/29/16 06:14 Dose: 10 ml Insulin Human Regular (Novolin R) 0 unit SC [facility] PRN Reason: Protocol Last Admin: 01/02/17 22:00 Dose: Not Given Pantoprazole Sodium (Protonix Ec Tab) 40 mg PO DAILY [facility] Last Admin: 01/02/17 09:41 Dose: 40 mg Rosuvastatin Calcium (Crestor) 20 mg PO HS [facility] Last Admin: 01/02/17 22:55 Dose: 20 mg Tramadol HCl (Ultram) 25 mg PO Q8 [facility] Last Admin: 01/02/17 23:00 Dose: 25 mg - Labs Labs: 01/02/17 06:47 01/02/17 06:47 PT 12.2 SECONDS (9.7-12.2) 12/31/16 11:26 INR 1.1 12/31/16 11:26 APTT 48 SECONDS (21-34) H 12/31/16 11:26
[2017-01-03] MEDS: Tramadol 25 mg PO SCH ×3 (05:36→22:17)
[2017-01-03] MEDS: (Novolin R) Insulin Human Regular 100 units/ml vial SC SCH ×4 (08:41→22:17)
[2017-01-03] MEDS: Pantoprazole 40 mg EC Tab PO SCH (09:25)
--- NOTE | 2017-01-03 14:40 | CP.PCM.PN ---
<Juan Jose Mcginnis - Last Filed: 01/03/17 14:58> Subjective - Date & Time of Evaluation Date of Evaluation: 01/03/17 Time of Evaluation: 14:37 - Subjective Subjective: PGY-[address] Osborn HPI: Pt seen an examined at bedside. Nurse translating for me. Patient is sleeping in bed and daughter at bedside. Patient is have trouble taking deep breaths. I told her she has some fluid in her lungs. She said she can feel it. I told her it is due to her CHF and although we are trying to get rid of it using medication she may need a thoracentesis at some point. Patient agrees with this plan. Objective - Vital Signs/Intake and Output Vital Signs (last 24 hours): Temp Pulse Resp BP Pulse Ox 97.4 F L 90 20 106/66 96 01/03/17 08:14 01/03/17 08:17 01/03/17 08:14 01/03/17 08:14 01/03/17 08:14 Intake and Output: 01/03/17 01/03/17 06:59 18:59 Intake Total 340 Output Total 200 Balance 140 - Medications Medications: Current Medications Acetaminophen (Tylenol 325mg Tab) 650 mg PO Q6 PRN PRN Reason: Pain, Mild (1-3) Last Admin: 01/02/17 08:47 Dose: 650 mg Apixaban (Eliquis) 5 mg PO BID [facility] Last Admin: 01/03/17 09:25 Dose: 5 mg Digoxin (Lanoxin) 0.25 mg PO DAILY@1800 [facility] Last Admin: 01/02/17 09:41 Dose: 0.25 mg Diltiazem HCl (Cardizem) 90 mg PO Q6H [facility] Last Admin: 01/03/17 12:45 Dose: 90 mg Guaifenesin/Dextromethorphan (Robitussin Dm) 10 ml PO Q4H PRN PRN Reason: Cough and congestion Last Admin: 12/29/16 06:14 Dose: 10 ml Insulin Human Regular (Novolin R) 0 unit SC ACHS [facility] PRN Reason: Protocol Last Admin: 01/03/17 12:45 Dose: 4 unit Pantoprazole Sodium (Protonix Ec Tab) 40 mg PO DAILY [facility] Last Admin: 01/03/17 09:25 Dose: 40 mg Rosuvastatin Calcium (Crestor) 20 mg PO HS [facility] Last Admin: 01/02/17 22:55 Dose: 20 mg Tramadol HCl (Ultram) 25 mg PO Q8 [facility] Last Admin: 01/03/17 13:35 Dose: 25 mg - Labs Labs: 01/02/17 06:47 01/02/17 06:47 PT 12.2 SECONDS (9.7-12.2) 12/31/16 11:26 INR 1.1 12/31/16 11:26 APTT 48 SECONDS (21-34) H 12/31/16 11:26 - Constitutional Appears: Well, Non-toxic, No Acute Distress - ENT Exam ENT Exam: Normal External Ear Exam - Respiratory Exam Respiratory Exam: Decreased Breath Sounds - Cardiovascular Exam Cardiovascular Exam: Irregular Rhythm. absent: Bradycardia, Tachycardia - GI/Abdominal Exam GI & Abdominal Exam: Soft. absent: Distended, Tenderness, Normal Bowel Sounds - Extremities Exam Extremities Exam: absent: Joint Swelling, Pedal Edema - Neurological Exam Neurological Exam: Alert, Awake, Oriented x3 - Psychiatric Exam Psychiatric exam: Normal Affect, Normal Mood - Skin Skin Exam: Dry, Intact, Normal Color, Warm Assessment and Plan - Assessment and Plan (Free Text) Assessment: SOB * Secondary to CHF and pleural effusion. * Lasix 20mg IV QD * May require thoracentesis in the future CHF with severe MR and moderate aortic stenosis * Lasix 20mg IV QD * I/Os * CXR - F/U * CT - B/l pleural effusions Atrial fibrillation * Cardizem 90 Q6 * Digoxin 0.25mg QD * Eliquis 5mg BID DM * SSI * Accuchecks <John Osborn - Last Filed: 01/03/17 18:24> Objective - Vital Signs/Intake and Output Vital Signs (last 24 hours): Temp Pulse Resp BP Pulse Ox 97.8 F 87 18 116/75 95 01/03/17 17:07 01/03/17 17:07 01/03/17 17:07 01/03/17 17:07 01/03/17 17:07 Intake and Output: 01/03/17 01/03/17 06:59 18:59 Intake Total 340 Output Total 200 Balance 140 - Medications Medications: Current Medications Acetaminophen (Tylenol 325mg Tab) 650 mg PO Q6 PRN PRN Reason: Pain, Mild (1-3) Last Admin: 01/02/17 08:47 Dose: 650 mg Apixaban (Eliquis) 5 mg PO BID [facility] Last Admin: 01/03/17 17:42 Dose: 5 mg Digoxin (Lanoxin) 0.25 mg PO DAILY@1800 [facility] Last Admin: 01/03/17 17:42 Dose: 0.25 mg Diltiazem HCl (Cardizem) 90 mg PO Q6H [facility] Last Admin: 01/03/17 17:42 Dose: 90 mg Furosemide (Lasix) 20 mg IVP DAILY [facility] Last Admin: 01/03/17 15:31 Dose: 20 mg Guaifenesin/Dextromethorphan (Robitussin Dm) 10 ml PO Q4H PRN PRN Reason: Cough and congestion Last Admin: 12/29/16 06:14 Dose: 10 ml Insulin Human Regular (Novolin R) 0 unit SC ACHS [facility] PRN Reason: Protocol Last Admin: 01/03/17 17:42 Dose: 4 unit Pantoprazole Sodium (Protonix Ec Tab) 40 mg PO DAILY [facility] Last Admin: 01/03/17 09:25 Dose: 40 mg Rosuvastatin Calcium (Crestor) 20 mg PO HS [facility] Last Admin: 01/02/17 22:55 Dose: 20 mg Tramadol HCl (Ultram) 25 mg PO Q8 [facility] Last Admin: 01/03/17 13:35 Dose: 25 mg - Labs Labs: 01/02/17 06:47 01/02/17 06:47 PT 12.2 SECONDS (9.7-12.2) 12/31/16 11:26 INR 1.1 12/31/16 11:26 APTT 48 SECONDS (21-34) H 12/31/16 11:26 Attending/Attestation - Attestation I have personally seen and examined this patient.: Yes I have fully participated in the care of the patient.: Yes I have reviewed all pertinent clinical information, including history, physical exam and plan: Yes Notes (Text): 01/03/17 18:14 Patient was seen and examined at 9:45 AM 01/03/17 669 B with daughter present who translated Serbian. Upon FULL ROS: Left sided rib pain with deep inspiration and is reproducible on exam Dizziness when getting up to walk to the bathroom Moving her bowels SOB is better NO other complaints upon FULL ROS Including the above on exam: Cardio: Faint Early Systolic Ejection Murmur Right Second Intercostal Space with discernable S1 and S2 Respiratory: Decreased breath sounds bilateral lower lung lewis GI: RUQ pain with deep palpation but NO Su's sign and NO guarding/rebound tenderness Assessments: 1). New Onset Atrial Fibrillation: Medicine Team will speak with Unix Administrator Dr. Jacob about entry level paralegal anticoagulation (Eliquis vs Coumadin?) 2). Hx Elevated Troponin: s/p cardiac catheterization 01/01/[address] Jacob and this was normal with normal EF 3). Questionable HF: 2D Echo showed NO signs of HF 4). Aortic and Mitral Stenosis: mild to moderate as per 2D Echo. Will discuss with Dr. Jacob as to whether Eliquis is contraindicated in this situation for anticoagulation for the Atrial Fibrillation. 5). Hx DM 2 6). Hx Right Shoulder Pain: will need follow up with Orthopedics Dr. Woods [phone] in 1 week. Will need MRI Right Shoulder 7). Hx Neck Lipoma since childhood: unchanged 8). Hyponatremia: f/u labs 01/04/17 9). Moderate Bilateral Pleural Effusions: Left > Right with compressive atelectasis as per CT Angio Chest. Will this need Thoracentesis? Medicine Team will speak with Reducing Salon Attendant 01/04/17 as to whether ANA is possible. John Osborn D.O.
[2017-01-03] MEDS: Digoxin 250 mcg (0.25 mg) Tab PO SCH (17:42)
[2017-01-03 19:17] LABS: BASO # 0.1 K/uL (0.0-0.2); BASO % 0.5 % (0.0-2.0); EOS # 0.2 K/uL (0.0-0.7); EOS % 1.6 % (0.0-4.0); HEMATOCRIT 36.6 % (34.0-47.0); LYMPH # 2.5 K/uL (1.0-4.3); LYMPH % 24.4 % (20.0-40.0); MEAN CELL VOLUME 85.1 fL (81.0-99.0); MEAN CORPUSCULAR HEMOGLOBIN 29.3 pg (27.0-31.0); MEAN CORPUSCULAR HGB CONC 34.5 g/dL (33.0-37.0); MEAN PLATELET VOLUME 8.8 fL (7.2-11.7); MONO # 0.6 K/uL (0.0-0.8); MONO % 5.8 % (0.0-10.0); RED CELL DISTRIBUTION WIDTH 13.8 % (11.5-14.5); WHITE BLOOD COUNT 10.3 K/uL (4.8-10.8)
[2017-01-03 19:27] LABS: CHLORIDE 94 mmol/L (98-107)
[2017-01-03 19:28] LABS: POTASSIUM 4.1 mmol/L (3.6-5.2); SODIUM 131 mmol/L (132-148)
[2017-01-03 19:30] LABS: AST/SGOT 17 U/L (14-36); BILIRUBIN,TOTAL 0.5 mg/dL (0.2-1.3); CARBON DIOXIDE 26 mmol/L (22-30); GFR AFRICAN-AMERICAN > 60
[2017-01-03 19:31] LABS: ALKALINE PHOSPHATASE 67 U/L (38-126); ALT/SGPT 26 U/L (9-52); BLOOD UREA NITROGEN 20 mg/dL (7-17); CALCIUM 9.4 mg/dl (8.6-10.4); GLUCOSE,RANDOM 270 mg/dL (65-105); TOTAL PROTEIN 7.5 g/dL (6.3-8.3)
[2017-01-03] MEDS ORDERED: Aluminum Hydroxide/Magnesium Hydroxide Susp (30 mL) PO STA (22:45)
[2017-01-04] MEDS: Tramadol 25 mg PO SCH ×3 (05:57→22:34)
[2017-01-04 07:40] LABS: BASO % 0.3 % (0.0-2.0); EOS # 0.2 K/uL (0.0-0.7); EOS % 1.8 % (0.0-4.0); LYMPH # 2.6 K/uL (1.0-4.3); LYMPH % 28.1 % (20.0-40.0); MEAN CORPUSCULAR HEMOGLOBIN 29.3 pg (27.0-31.0); MEAN CORPUSCULAR HGB CONC 34.5 g/dL (33.0-37.0); MEAN PLATELET VOLUME 9.2 fL (7.2-11.7); MONO # 0.5 K/uL (0.0-0.8); RED CELL DISTRIBUTION WIDTH 13.6 % (11.5-14.5); WHITE BLOOD COUNT 9.1 K/uL (4.8-10.8)
[2017-01-04 07:57] LABS: CHLORIDE 95 mmol/L (98-107); POTASSIUM 3.9 mmol/L (3.6-5.2); SODIUM 133 mmol/L (132-148)
[2017-01-04 07:59] LABS: AST/SGOT 16 U/L (14-36); BILIRUBIN,TOTAL 0.7 mg/dL (0.2-1.3); CARBON DIOXIDE 29 mmol/L (22-30); GFR AFRICAN-AMERICAN > 60
[2017-01-04 08:00] LABS: ALB/GLOB RATIO 0.9 (1.0-2.1); ALKALINE PHOSPHATASE 75 U/L (38-126); ALT/SGPT 29 U/L (9-52); BLOOD UREA NITROGEN 16 mg/dL (7-17); CALCIUM 9.3 mg/dl (8.6-10.4); GLUCOSE,RANDOM 231 mg/dL (65-105); TOTAL PROTEIN 7.3 g/dL (6.3-8.3)
[2017-01-04] MEDS: (Novolin R) Insulin Human Regular 100 units/ml vial SC SCH ×4 (08:54→23:10)
--- NOTE | 2017-01-04 08:56 | CP.PCM.PN ---
<Juan Jose Mcginnis - Last Filed: 01/04/17 18:05> Subjective - Date & Time of Evaluation Date of Evaluation: 01/04/17 Time of Evaluation: 08:55 - Subjective Subjective: PGY1 Note for Dr. Osborn HPI: Patient seen and examined at bedside. Patient got very nervous when she went for the MRI of her shoulder. She is complaining of burning when she eats and says she cant eat bread. However, patient does state that she has no difficulty swallowing. She is saying that it hurts when she goes to the bathroom. Patients daughter is at the bedside stating that she is eating less, probably secondary to the burning when she eats. Patient states that sometimes she gets short of breath with a deep inspiration. I told them we were planning to do a thoracentesis at the bedside tomorrow to get the extra fluid out so she could breath better. I imagine the patient will get nervous when the procedure time gets closer. I told her we will give her medicine to calm her down if need be. She was also asking if she would need to follow up with a doctor here before going back to [place]. I told her it would be a good idea to follow up in our clinic soon after discharge. The patient was concerned about her condition and was wondering if she was "all fixed". I told her that we were putting her on all of the appropriate medications but i couldn't promise that her heart failure would not get worse as she aged. Objective - Vital Signs/Intake and Output Vital Signs (last 24 hours): Temp Pulse Resp BP Pulse Ox 98.2 F 80 20 117/75 98 01/04/17 08:34 01/04/17 08:34 01/04/17 08:34 01/04/17 08:34 01/04/17 08:34 Intake and Output: 01/04/17 01/04/17 06:59 18:59 Intake Total 200 Balance 200 - Medications Medications: Current Medications Acetaminophen (Tylenol 325mg Tab) 650 mg PO Q6 PRN PRN Reason: Pain, Mild (1-3) Last Admin: 01/02/17 08:47 Dose: 650 mg Apixaban (Eliquis) 5 mg PO BID [facility] Last Admin: 01/03/17 17:42 Dose: 5 mg Digoxin (Lanoxin) 0.25 mg PO DAILY@1800 [facility] Last Admin: 01/03/17 17:42 Dose: 0.25 mg Diltiazem HCl (Cardizem) 90 mg PO Q6H [facility] Last Admin: 01/04/17 05:57 Dose: 90 mg Furosemide (Lasix) 20 mg IVP DAILY [facility] Last Admin: 01/03/17 15:31 Dose: 20 mg Guaifenesin/Dextromethorphan (Robitussin Dm) 10 ml PO Q4H PRN PRN Reason: Cough and congestion Last Admin: 12/29/16 06:14 Dose: 10 ml Insulin Human Regular (Novolin R) 0 unit SC ACHS [facility] PRN Reason: Protocol Last Admin: 01/04/17 08:54 Dose: 3 unit Pantoprazole Sodium (Protonix Ec Tab) 40 mg PO DAILY [facility] Last Admin: 01/03/17 09:25 Dose: 40 mg Rosuvastatin Calcium (Crestor) 20 mg PO HS [facility] Last Admin: 01/03/17 22:18 Dose: 20 mg Tramadol HCl (Ultram) 25 mg PO Q8 [facility] Last Admin: 01/04/17 05:57 Dose: 25 mg - Labs Labs: 01/04/17 07:20 01/04/17 07:20 PT 12.2 SECONDS (9.7-12.2) 12/31/16 11:26 INR 1.1 12/31/16 11:26 APTT 48 SECONDS (21-34) H 12/31/16 11:26 - Constitutional Appears: Well, Non-toxic, No Acute Distress - Head Exam Head Exam: ATRAUMATIC, NORMAL INSPECTION, NORMOCEPHALIC - Eye Exam Eye Exam: EOMI - ENT Exam ENT Exam: Mucous Membranes Moist - Respiratory Exam Respiratory Exam: Rales Additional comments: LLL - Cardiovascular Exam Cardiovascular Exam: Irregular Rhythm - GI/Abdominal Exam GI & Abdominal Exam: Soft, Normal Bowel Sounds. absent: Distended, Tenderness - Neurological Exam Neurological Exam: Alert, Awake, Oriented x3 - Psychiatric Exam Psychiatric exam: Anxious - Skin Skin Exam: Dry, Intact, Normal Color, Warm Assessment and Plan - Assessment and Plan (Free Text) Assessment: SOB * Secondary to CHF and pleural effusion. * Lasix 20mg IV QD * Thoracentesis tomorrow CHF with severe MR and moderate aortic stenosis * Lasix 20mg IV QD * I/Os * CXR - No change in pulmonary venous congestion and interstital edema. Haziness in both lower lobes = layering pleural effusions * CT - B/l pleural effusions Atrial fibrillation * Cardizem 90 Q6 * Digoxin 0.25mg QD * Eliquis 5mg BID * Not a mechanical valve so oral anticoagulation is ok * s/p cardiac cath - normal with normal EF DM * SSI * Accuchecks R. Shoulder Pain * F/U MRI * Ortho ([facility]) follow up in 1 week. [phone] call for appointment PPX * Carafate <John Osborn - Last Filed: 01/04/17 19:47> Objective - Vital Signs/Intake and Output Vital Signs (last 24 hours): Temp Pulse Resp BP Pulse Ox 98.1 F 92 H 20 112/71 97 01/04/17 16:45 01/04/17 16:45 01/04/17 16:45 01/04/17 16:45 01/04/17 16:45 - Medications Medications: Current Medications Acetaminophen (Tylenol 325mg Tab) 650 mg PO Q6 PRN PRN Reason: Pain, Mild (1-3) Last Admin: 01/02/17 08:47 Dose: 650 mg Apixaban (Eliquis) 5 mg PO BID [facility] Last Admin: 01/04/17 18:31 Dose: 5 mg Digoxin (Lanoxin) 0.25 mg PO DAILY@1800 [facility] Last Admin: 01/04/17 18:32 Dose: 0.25 mg Diltiazem HCl (Cardizem) 90 mg PO Q6H [facility] Last Admin: 01/04/17 18:36 Dose: 90 mg Furosemide (Lasix) 20 mg IVP DAILY [facility] Last Admin: 01/04/17 10:39 Dose: 20 mg Glyburide (Micronase) 5 mg PO QAM [facility] Guaifenesin/Dextromethorphan (Robitussin Dm) 10 ml PO Q4H PRN PRN Reason: Cough and congestion Last Admin: 12/29/16 06:14 Dose: 10 ml Insulin Human Regular (Novolin R) 0 unit SC ACHS [facility] PRN Reason: Protocol Last Admin: 01/04/17 18:29 Dose: 4 unit Metformin HCl (Glucophage) 500 mg PO BIDBS [facility] Last Admin: 01/04/17 18:32 Dose: 500 mg Pantoprazole Sodium (Protonix Ec Tab) 40 mg PO DAILY [facility] Last Admin: 01/04/17 10:39 Dose: 40 mg Rosuvastatin Calcium (Crestor) 20 mg PO HS [facility] Last Admin: 01/03/17 22:18 Dose: 20 mg Sucralfate (Carafate Tab) 1 gm PO DAILY [facility] Tramadol HCl (Ultram) 25 mg PO Q8 [facility] Last Admin: 01/04/17 14:00 Dose: Not Given - Labs Labs: 01/04/17 07:20 01/04/17 07:20 PT 12.2 SECONDS (9.7-12.2) 12/31/16 11:26 INR 1.1 12/31/16 11:26 APTT 48 SECONDS (21-34) H 12/31/16 11:26 Attending/Attestation - Attestation I have personally seen and examined this patient.: Yes I have fully participated in the care of the patient.: Yes I have reviewed all pertinent clinical information, including history, physical exam and plan: Yes Notes (Text): 01/04/17 19:43 Patient was seen and examined at 2:45 AM 01/04/17 669 B with daughter present who translated Belarusian. Upon FULL ROS: Left sided rib pain with deep inspiration and is reproducible on exam Dizziness when getting up to walk to the bathroom continues Moving her bowels SOB is better NO other complaints upon FULL ROS Including the above on exam: Cardio: Faint Early Systolic Ejection Murmur Right Second Intercostal Space with discernable S1 and S2 Respiratory: Decreased breath sounds bilateral lower lung lewis GI: RUQ pain with deep palpation but NO Su's sign and NO guarding/rebound tenderness Assessments: 1). New Onset Atrial Fibrillation: Eliquis 5 mg PO 2x/day started by Cardiology Dr. Jacob 2). Hx Elevated Troponin: s/p cardiac catheterization 01/01/[address] Jacob and this was normal with normal EF 3). Questionable HF: 2D Echo showed NO signs of HF 4). Aortic and Mitral Stenosis: mild to moderate as per 2D Echo. I spoke with Dr. Jacob and Eliquis not contraindicated 5). Hx DM 2 6). Hx Right Shoulder Pain: will need follow up with Orthopedics Dr. Woods [phone] in 1 week. Will need MRI Right Shoulder 7). Hx Neck Lipoma since childhood: unchanged 8). Hyponatremia: f/u labs 01/04/17 9). Moderate Bilateral Pleural Effusions: Left > Right with compressive atelectasis as per CT Angio Chest. Will this need Thoracentesis? Repeat Chest X Ray PA and Lateral morning 01/05/17. I spoke with Order Checker Jackie and unfortunately patient does not qualify for ANA or Home PT as she does not have insurance. This was explained to Daughter and Patient. John Osborn D.O.
[2017-01-04] MEDS: Pantoprazole 40 mg EC Tab PO SCH (10:39)
--- NOTE | 2017-01-04 11:08 | US ---
PROCEDURE: Date of procedure: Procedure:12/31/2016 1. Ultrasound chest for thoracentesis HISTORY: Bilateral pleural effusion TECHNIQUE: Limited ultrasound of the right and left chest was performed for purposes of thoracentesis. Ultrasound showed very small amount of left pleural effusion and trace right effusion. Pleural effusion is not sufficient for thoracentesis. IMPRESSION: Limited ultrasound patient's chest showed a very small amount of left effusion and a trace right effusion. There is not sufficient fluid for thoracentesis.
[2017-01-04] MEDS: Digoxin 250 mcg (0.25 mg) Tab PO SCH (18:32)
[2017-01-05] MEDS: Tramadol 25 mg PO SCH ×3 (05:32→22:01)
[2017-01-05 07:00] LABS: BASO % 0.3 % (0.0-2.0); EOS # 0.2 K/uL (0.0-0.7); HEMATOCRIT 35.8 % (34.0-47.0); LYMPH # 2.8 K/uL (1.0-4.3); LYMPH % 30.1 % (20.0-40.0); MEAN CELL VOLUME 84.1 fL (81.0-99.0); MEAN CORPUSCULAR HEMOGLOBIN 29.7 pg (27.0-31.0); MEAN CORPUSCULAR HGB CONC 35.3 g/dL (33.0-37.0); MONO # 0.5 K/uL (0.0-0.8); MONO % 5.9 % (0.0-10.0); NRBC % 0.1 % (0.0-2.0); RED CELL DISTRIBUTION WIDTH 13.6 % (11.5-14.5); WHITE BLOOD COUNT 9.3 K/uL (4.8-10.8)
[2017-01-05 07:55] LABS: CHLORIDE 95 mmol/L (98-107); SODIUM 134 mmol/L (132-148)
[2017-01-05 07:56] LABS: POTASSIUM 3.7 mmol/L (3.6-5.2)
[2017-01-05 07:58] LABS: ALB/GLOB RATIO 0.9 (1.0-2.1); ALKALINE PHOSPHATASE 75 U/L (38-126); ALT/SGPT 27 U/L (9-52); AST/SGOT 16 U/L (14-36); BILIRUBIN,TOTAL 0.6 mg/dL (0.2-1.3); BLOOD UREA NITROGEN 15 mg/dL (7-17); CALCIUM 9.6 mg/dl (8.6-10.4); CARBON DIOXIDE 28 mmol/L (22-30); GFR AFRICAN-AMERICAN > 60; GLUCOSE,RANDOM 213 mg/dL (65-105); TOTAL PROTEIN 7.3 g/dL (6.3-8.3)
[2017-01-05] MEDS: (Novolin R) Insulin Human Regular 100 units/ml vial SC SCH ×4 (08:16→21:55)
--- NOTE | 2017-01-05 10:06 | RAD ---
HISTORY: History of bilateral pleural effusions COMPARISON: Prior portable chest 01/01/2017 TECHNIQUE: Chest PA and lateral FINDINGS: LUNGS: No definite acute infiltrate is appreciated. PLEURA: Trace right pleural effusion not identified obscuring the right costophrenic sulcus with none at the left. No pneumothorax once again. CARDIOVASCULAR: Cardiac silhouette remains somewhat prominent but diminishing hilar vascular markings are identified as well as interstitial markings bilaterally in a pattern that suggests improved CHF. OSSEOUS STRUCTURES: No significant abnormalities. VISUALIZED UPPER ABDOMEN: Normal. OTHER FINDINGS: None. IMPRESSION: Improving CHF although trace right pleural effusion identified. No definite acute infiltrate. Further clinical correlation is advised.
--- NOTE | 2017-01-05 10:26 | CP.PCM.PN ---
<Juan Jose Mcginnis - Last Filed: 01/05/17 10:34> Subjective - Date & Time of Evaluation Date of Evaluation: 01/05/17 Time of Evaluation: 10:21 - Subjective Subjective: PGY1 Note for Dr. Osborn HPI: Patient seen and examined at bedside. Doing well. States that last night after she ate she was given a medicine and threw up. today she denies any nausea or vomiting. She says there was no blood in the vomit. Had an extensive conversation about the future of her healthcare. She wanted to know what to do after she was discharged if she did not feel well. I told her we would optimize her as best we could and i would provide detailed instruction about what medications to take and who to follow up with her. I also told her if she felt seriously poor she should return to the emergency room. I told her the Orthopedic doctor said to follow up as an outpatient. No other complaints at this time. Objective - Vital Signs/Intake and Output Vital Signs (last 24 hours): Temp Pulse Resp BP Pulse Ox 97.4 F L 78 20 104/63 96 01/05/17 09:08 01/05/17 09:08 01/05/17 09:08 01/05/17 09:08 01/05/17 09:08 Intake and Output: 01/05/17 01/05/17 06:59 18:59 Intake Total 240 Balance 240 - Medications Medications: Current Medications Acetaminophen (Tylenol 325mg Tab) 650 mg PO Q6 PRN PRN Reason: Pain, Mild (1-3) Last Admin: 01/02/17 08:47 Dose: 650 mg Apixaban (Eliquis) 5 mg PO BID [facility] Last Admin: 01/04/17 18:31 Dose: 5 mg Digoxin (Lanoxin) 0.25 mg PO DAILY@1800 [facility] Last Admin: 01/04/17 18:32 Dose: 0.25 mg Diltiazem HCl (Cardizem) 90 mg PO Q6H [facility] Last Admin: 01/05/17 05:32 Dose: 90 mg Furosemide (Lasix) 20 mg IVP DAILY [facility] Last Admin: 01/04/17 10:39 Dose: 20 mg Glyburide (Micronase) 5 mg PO QAM [facility] Guaifenesin/Dextromethorphan (Robitussin Dm) 10 ml PO Q4H PRN PRN Reason: Cough and congestion Last Admin: 12/29/16 06:14 Dose: 10 ml Insulin Human Regular (Novolin R) 0 unit SC ACHS [facility] PRN Reason: Protocol Last Admin: 01/05/17 08:16 Dose: 3 unit Metformin HCl (Glucophage) 500 mg PO BIDBS [facility] Last Admin: 01/05/17 08:15 Dose: 500 mg Pantoprazole Sodium (Protonix Ec Tab) 40 mg PO DAILY [facility] Last Admin: 01/04/17 10:39 Dose: 40 mg Rosuvastatin Calcium (Crestor) 20 mg PO HS [facility] Last Admin: 01/04/17 22:25 Dose: 20 mg Sucralfate (Carafate Tab) 1 gm PO DAILY [facility] Tramadol HCl (Ultram) 25 mg PO Q8 [facility] Last Admin: 01/05/17 05:32 Dose: 25 mg - Labs Labs: 01/05/17 06:39 01/05/17 06:39 PT 12.2 SECONDS (9.7-12.2) 12/31/16 11:26 INR 1.1 12/31/16 11:26 APTT 48 SECONDS (21-34) H 12/31/16 11:26 - Constitutional Appears: Well, Non-toxic, No Acute Distress - Head Exam Head Exam: ATRAUMATIC, NORMAL INSPECTION, NORMOCEPHALIC - Eye Exam Eye Exam: EOMI - ENT Exam ENT Exam: Mucous Membranes Moist - Respiratory Exam Respiratory Exam: Clear to Ausculation Bilateral, NORMAL BREATHING PATTERN. absent: Rales, Rhonchi, Wheezes, Stridor - Cardiovascular Exam Cardiovascular Exam: REGULAR RHYTHM - GI/Abdominal Exam GI & Abdominal Exam: Soft, Normal Bowel Sounds. absent: Distended, Tenderness - Neurological Exam Neurological Exam: Alert, Awake, Oriented x3 - Psychiatric Exam Psychiatric exam: Normal Affect, Normal Mood - Skin Skin Exam: Dry, Intact, Normal Color, Warm Assessment and Plan - Assessment and Plan (Free Text) Assessment: SOB * Secondary to CHF and pleural effusion. * Lasix 20mg IV QD CHF with severe MR and moderate aortic stenosis * Lasix 20mg IV QD * I/Os * CXR - No change in pulmonary venous congestion and interstital edema. Haziness in both lower lobes = layering pleural effusions * CT - B/l pleural effusions * CXR (01/05) - Improving CHF, small effusion * Continue current regimen Atrial fibrillation * Cardizem 90 Q6 * Digoxin 0.25mg QD * Eliquis 5mg BID * Not a mechanical valve so oral anticoagulation is ok * s/p cardiac cath - normal with normal EF DM * SSI * Accuchecks R. Shoulder Pain * F/U MRI * Ortho ([facility]) follow up in 1 week. [phone] call for appointment Vomiting * Carafate * Protonix IV * Zofran PRN PPX * Carafate * Protonix IV <John Osborn - Last Filed: 01/05/17 18:46> Objective - Vital Signs/Intake and Output Vital Signs (last 24 hours): Temp Pulse Resp BP Pulse Ox 98 F 91 H 18 125/70 100 01/05/17 15:44 01/05/17 15:44 01/05/17 15:44 01/05/17 15:44 01/05/17 15:44 Intake and Output: 01/05/17 01/05/17 06:59 18:59 Intake Total 240 400 Balance 240 400 - Medications Medications: Current Medications Acetaminophen (Tylenol 325mg Tab) 650 mg PO Q6 PRN PRN Reason: Pain, Mild (1-3) Last Admin: 01/02/17 08:47 Dose: 650 mg Apixaban (Eliquis) 5 mg PO BID [facility] Last Admin: 01/05/17 18:17 Dose: 5 mg Digoxin (Lanoxin) 0.25 mg PO DAILY@1800 [facility] Last Admin: 01/05/17 18:17 Dose: 0.25 mg Diltiazem HCl (Cardizem) 90 mg PO Q6H [facility] Last Admin: 01/05/17 18:17 Dose: 90 mg Famotidine (Pepcid) 40 mg PO DAILY [facility] Last Admin: 01/05/17 12:45 Dose: 40 mg Furosemide (Lasix) 20 mg IVP DAILY [facility] Last Admin: 01/05/17 10:42 Dose: 20 mg Glyburide (Micronase) 5 mg PO QAM [facility] Last Admin: 01/05/17 10:41 Dose: 5 mg Guaifenesin/Dextromethorphan (Robitussin Dm) 10 ml PO Q4H PRN PRN Reason: Cough and congestion Last Admin: 12/29/16 06:14 Dose: 10 ml Insulin Human Regular (Novolin R) 0 unit SC ACHS [facility] PRN Reason: Protocol Last Admin: 01/05/17 18:18 Dose: 2 unit Metformin HCl (Glucophage) 500 mg PO BIDBS [facility] Last Admin: 01/05/17 18:17 Dose: 500 mg Ondansetron HCl (Zofran Inj) 4 mg IVP Q6H PRN PRN Reason: Nausea/Vomiting Rosuvastatin Calcium (Crestor) 20 mg PO HS [facility] Last Admin: 01/04/17 22:25 Dose: 20 mg Sucralfate (Carafate Tab) 1 gm PO DAILY [facility] Last Admin: 01/05/17 10:42 Dose: 1 gm Tramadol HCl (Ultram) 25 mg PO Q8 [facility] Last Admin: 01/05/17 14:09 Dose: 25 mg - Labs Labs: 01/05/17 06:39 01/05/17 06:39 PT 12.2 SECONDS (9.7-12.2) 12/31/16 11:26 INR 1.1 12/31/16 11:26 APTT 48 SECONDS (21-34) H 12/31/16 11:26 Attending/Attestation - Attestation I have personally seen and examined this patient.: Yes I have fully participated in the care of the patient.: Yes I have reviewed all pertinent clinical information, including history, physical exam and plan: Yes Notes (Text): 01/05/17 18:42 Patient was seen and examined at 5:30 PM 01/05/17 669 [address] with daughter present who translated Kiny[place]. Upon FULL ROS: Left sided rib pain with deep inspiration and is reproducible on exam but is better today Dizziness when getting up to walk to the bathroom continues howerver not as bad Moving her bowels SOB is better NO other complaints upon FULL ROS Including the above on exam: Cardio: Faint Early Systolic Ejection Murmur Right Second Intercostal Space with discernable S1 and S2 Respiratory: Decreased breath sounds bilateral lower lung lewis GI: RUQ pain with deep palpation but NO Su's sign and NO guarding/rebound tenderness Assessments: 1). New Onset Atrial Fibrillation: Eliquis 5 mg PO 2x/day started by Cardiology Dr. Jacob 2). Hx Elevated Troponin: s/p cardiac catheterization 01/01/[address] Jacob and this was normal with normal EF 3). Questionable HF: 2D Echo showed NO signs of HF 4). Aortic and Mitral Stenosis: mild to moderate as per 2D Echo. I spoke with Dr. Jacob 01/04/17 and Eliquis not contraindicated 5). Hx DM 2: restarted Glyburide and Metformin 6). Hx Right Shoulder Pain: will need follow up with Orthopedics Dr. Woods in 1 week. Will need MRI Right Shoulder 7). Hx Neck Lipoma since childhood: unchanged 8). Hyponatremia: resolved 9). Hx of Bilateral Pleural Effusions on CT Chest: chest x ray done today shows no acute infiltrate and trace Right Pleural Effusion. I spoke with the daughter and explained that we will most likely discharge patient in the morning. John Osborn D.O.
[2017-01-05] MEDS: Digoxin 250 mcg (0.25 mg) Tab PO SCH (18:17)
[2017-01-05 18:18] VITALS: PULSE 90
[2017-01-06 00:31] VITALS: RESP 20
[2017-01-06] MEDS: Tramadol 25 mg PO SCH ×2 (05:05→13:34)
[2017-01-06 07:10] LABS: BASO % 0.4 % (0.0-2.0); EOS # 0.2 K/uL (0.0-0.7); EOS % 2.2 % (0.0-4.0); LYMPH % 30.1 % (20.0-40.0); MEAN CORPUSCULAR HEMOGLOBIN 29.3 pg (27.0-31.0); MEAN CORPUSCULAR HGB CONC 34.5 g/dL (33.0-37.0); MONO # 0.6 K/uL (0.0-0.8); MONO % 5.9 % (0.0-10.0); NRBC % 0.1 % (0.0-2.0); RED CELL DISTRIBUTION WIDTH 13.5 % (11.5-14.5); WHITE BLOOD COUNT 9.9 K/uL (4.8-10.8)
[2017-01-06 08:08] LABS: CHLORIDE 95 mmol/L (98-107); POTASSIUM 3.9 mmol/L (3.6-5.2); SODIUM 133 mmol/L (132-148)
[2017-01-06 08:10] LABS: BILIRUBIN,TOTAL 0.5 mg/dL (0.2-1.3); GFR AFRICAN-AMERICAN > 60
[2017-01-06 08:11] LABS: ALB/GLOB RATIO 0.9 (1.0-2.1); ALKALINE PHOSPHATASE 69 U/L (38-126); ALT/SGPT 28 U/L (9-52); AST/SGOT 16 U/L (14-36); BLOOD UREA NITROGEN 19 mg/dL (7-17); CARBON DIOXIDE 27 mmol/L (22-30); GLUCOSE,RANDOM 206 mg/dL (65-105); TOTAL PROTEIN 7.2 g/dL (6.3-8.3)
[2017-01-06 08:12] LABS: CALCIUM 9.3 mg/dl (8.6-10.4)
[2017-01-06] MEDS: (Novolin R) Insulin Human Regular 100 units/ml vial SC SCH ×2 (08:28→12:55)
--- NOTE | 2017-01-06 13:25 | CP.PCM.PN ---
Subjective - Date & Time of Evaluation Date of Evaluation: 01/06/17 Time of Evaluation: 13:00 - Subjective Subjective: Patient was seen and examined at 1:00 PM 01/06/17 [address]69 [address] with Daughter and [employer]oll Service Observer Colton Howell who translated [place]. Upon FULL ROS: Left sided rib pain with deep inspiration and is reproducible on exam but is better today Dizziness when getting up to walk to the bathroom continues however not as bad Moving her bowels SOB is better NO other complaints upon FULL ROS Including the above on exam: Cardio: Faint Early Systolic Ejection Murmur Right Second Intercostal Space with discernable S1 and S2 Respiratory: Decreased breath sounds bilateral lower lung lewis GI: RUQ pain with deep palpation but NO Su's sign and NO guarding/rebound tenderness Assessments: 1). New Onset Atrial Fibrillation: Eliquis 5 mg PO 2x/day 2). Hx Elevated Troponin: s/p cardiac catheterization 01/01/[address] Jacob and this was normal with normal EF 3). Questionable HF: 2D Echo showed NO signs of HF 4). Aortic and Mitral Stenosis: mild to moderate as per 2D Echo. I spoke with Dr. Jacob 01/04/17 and Eliquis not contraindicated 5). Hx DM 2: restarted Glyburide and Metformin 6). Hx Right Shoulder Pain: will need follow up with Orthopedics Dr. Woods [phone] in 1 week. Will need MRI Right Shoulder 7). Hx Neck Lipoma since childhood: unchanged 8). Hyponatremia: resolved 9). Hx of Bilateral Pleural Effusions on CT Chest: chest x ray done 01/05/17 shows no acute infiltrate and trace Right Pleural Effusion. The following instructions were explained to patient in [place]: 1). Daughter is to schedule appointment with the [facility] located on Floor B of this hospital. Please schedule this appointment to take place in the next 7 to 10 days before you leave the hospital today. They will help you to coordinate your care. 2). Please have the following medications filled at either [facility] or [facility]: Digoxin 0.25 mg, 1 tablet by mouth once a day (9 AM), Disp #30, NO refills Cardizem 90 mg, 1 tablet by mouth 4 times a day (7 AM, 12 PM, 5 PM, and 10 PM), Disp #120, NO refills Lasix 20 mg, 1 tablet by mouth once a day (9 AM), Disp #30, NO refills Glyburide 5 mg, 1 tablet by mouth twice a day (breakfast and dinner), Disp #60 Metformin 500 mg, 1 tablet by mouth three times a day (breakfast, lunch, and dinner), Disp #90, NO refills Lipitor 40 mg, 1 tablet by mouth once a day (dinner), Disp #30, NO refills 3). You were provided with the following medication prior to your discharge. Please take as directed: Eliquis 5 mg, 1 tablet by mouth twice a day (breakfast and dinner), Disp #60, NO refills Eliquis is a blood thinner that is going to keep your blood thin to help prevent blood clots that can form because of your abnormal heart rhythm. Please be careful concerning falls as this can cause severe bleeding. 4). You stated that you will be leaving for [place] in 2 weeks. Please bring this paper with you to show your doctor in [place]. 5). Please schedule follow up with Orthopedic Physician Dr. Woods [phone] in 1 week for re-evaluation of your Right Shoulder. You will eventually need an MRI of your Right Shoulder to make sure that there is not a tear there. 6). Make sure to take a multivitamin once a day. You do not need a prescription to purchase this. You can ask the pharmacist at the [facility] or [facility] pharmacy to recommend a multivitamin for you. 7). Please eat 3 meals a day. 8). Stay well hydrated with water. 9). Please take care, be well, and have safe trip back to [place]. John Osborn D.O. Objective - Vital Signs/Intake and Output Vital Signs (last 24 hours): Temp Pulse Resp BP Pulse Ox 97.4 F L 76 20 115/76 95 01/06/17 08:33 01/06/17 11:46 01/06/17 08:33 01/06/17 11:46 01/06/17 08:33 Intake and Output: 01/06/17 01/06/17 06:59 18:59 Intake Total 200 Balance 200 - Medications Medications: Current Medications Acetaminophen (Tylenol 325mg Tab) 650 mg PO Q6 PRN PRN Reason: Pain, Mild (1-3) Last Admin: 01/02/17 08:47 Dose: 650 mg Apixaban (Eliquis) 5 mg PO BID [facility] Last Admin: 01/06/17 09:22 Dose: 5 mg Digoxin (Lanoxin) 0.25 mg PO DAILY@1800 [facility] Last Admin: 01/05/17 18:17 Dose: 0.25 mg Diltiazem HCl (Cardizem) 90 mg PO Q6H [facility] Last Admin: 01/06/17 11:48 Dose: 90 mg Famotidine (Pepcid) 40 mg PO DAILY [facility] Last Admin: 01/06/17 09:22 Dose: 40 mg Furosemide (Lasix) 20 mg IVP DAILY [facility] Last Admin: 01/06/17 09:22 Dose: 20 mg Glyburide (Micronase) 5 mg PO QAM [facility] Last Admin: 01/06/17 09:22 Dose: 5 mg Guaifenesin/Dextromethorphan (Robitussin Dm) 10 ml PO Q4H PRN PRN Reason: Cough and congestion Last Admin: 12/29/16 06:14 Dose: 10 ml Insulin Human Regular (Novolin R) 0 unit SC ACHS [facility] PRN Reason: Protocol Last Admin: 01/06/17 12:55 Dose: 8 unit Metformin HCl (Glucophage) 500 mg PO BIDBS [facility] Last Admin: 01/06/17 08:28 Dose: 500 mg Ondansetron HCl (Zofran Inj) 4 mg IVP Q6H PRN PRN Reason: Nausea/Vomiting Rosuvastatin Calcium (Crestor) 20 mg PO HS [facility] Last Admin: 01/05/17 22:00 Dose: 20 mg Sucralfate (Carafate Tab) 1 gm PO DAILY [facility] Last Admin: 01/06/17 09:22 Dose: 1 gm Tramadol HCl (Ultram) 25 mg PO Q8 [facility] Last Admin: 01/06/17 05:05 Dose: 25 mg - Labs Labs: 01/06/17 06:54 01/06/17 06:54 PT 12.2 SECONDS (9.7-12.2) 12/31/16 11:26 INR 1.1 12/31/16 11:26 APTT 48 SECONDS (21-34) H 12/31/16 11:26
--- NOTE | 2017-01-06 14:25 | CP.PCM.DIS ---
<BrianrenzoJuan Jose - Last Filed: 01/06/17 14:22> Provider - Provider Date of Admission: 12/27/16 17:33 Attending physician: John Osborn MD Primary care physician: Clinic Consults: Cardio: Cecil Robbins Pulm: Gary Time Spent in preparation of Discharge (in minutes): 60 Diagnosis - Discharge Diagnosis (1) Diabetes Status: Acute (2) Atrial fibrillation Status: Acute Hospital Course - Lab Results Lab Results: Micro Results 01/03/17 01:43 Naris MRSA Culture - Final MRSA NOT DETECTED 12/29/16 09:54 Nose MRSA Culture (Admit) - Final MRSA NOT DETECTED Most Recent Lab Values WBC 9.9 K/uL (4.8-10.8) 01/06/17 06:54 RBC 4.35 Mil/uL (3.80-5.20) 01/06/17 06:54 Hgb 12.8 g/dL (11.0-16.0) 01/06/17 06:54 Hct 37.0 % (34.0-47.0) 01/06/17 06:54 MCV 85.0 fL (81.0-99.0) 01/06/17 06:54 MCH 29.3 pg (27.0-31.0) 01/06/17 06:54 MCHC 34.5 g/dL (33.0-37.0) 01/06/17 06:54 RDW 13.5 % (11.5-14.5) 01/06/17 06:54 Plt Count 195 K/uL (130-400) 01/06/17 06:54 MPV 9.0 fL (7.2-11.7) 01/06/17 06:54 Neut % (Auto) 61.4 % (50.0-75.0) 01/06/17 06:54 Lymph % (Auto) 30.1 % (20.0-40.0) 01/06/17 06:54 [place] % (Auto) 5.9 % (0.0-10.0) 01/06/17 06:54 Eos % (Auto) 2.2 % (0.0-4.0) 01/06/17 06:54 Baso % (Auto) 0.4 % (0.0-2.0) 01/06/17 06:54 Neut # 6.1 K/uL (1.8-7.0) 01/06/17 06:54 Lymph # 3.0 K/uL (1.0-4.3) 01/06/17 06:54 [place] # 0.6 K/uL (0.0-0.8) 01/06/17 06:54 Eos # 0.2 K/uL (0.0-0.7) 01/06/17 06:54 Baso # 0.0 K/uL (0.0-0.2) 01/06/17 06:54 PT 12.2 SECONDS (9.7-12.2) 12/31/16 11:26 INR 1.1 12/31/16 11:26 APTT 48 SECONDS (21-34) H 12/31/16 11:26 D-Dimer, Quantitative 532 ng/mlDDU (0-243) H 12/27/16 16:12 Puncture Site Lr 12/29/16 09:22 pCO2 34 mm/Hg (35-45) L 12/29/16 09:22 pO2 202 mm/Hg (80-100) H 12/29/16 09:22 HCO3 23.6 mmol/L (21-28) 12/29/16 09:22 ABG pH 7.42 (7.35-7.45) 12/29/16 09:22 ABG Total CO2 23.1 mmol/L (22-28) 12/29/16 09:22 ABG O2 Saturation 99.8 % (95-98) H 12/29/16 09:22 ABG Base Excess -1.7 mmol/L (-2.0-3.0) 12/29/16 09:22 ABG Hemoglobin 14.4 g/dL (11.7-17.4) 12/29/16 09:22 ABG Carboxyhemoglobin 1.7 % (0.5-1.5) H 12/29/16 09:22 POC ABG HHb (Measured) 0.2 % (0.0-5.0) 12/29/16 09:22 ABG Methemoglobin 1.2 % (0.0-3.0) 12/29/16 09:22 Addi Test Pos 12/29/16 09:22 VBG pH 7.38 (7.32-7.43) 12/27/16 16:32 VBG pCO2 40 mmHg (40-60) 12/27/16 16:32 VBG HCO3 23.0 mmol/L 12/27/16 16:32 VBG Total CO2 24.9 mmol/L (22-28) 12/27/16 16:32 VBG O2 Sat (Calc) 69.0 % (40-65) H 12/27/16 16:32 VBG Base Excess -1.3 mmol/L (0.0-2.0) L 12/27/16 16:32 VBG Potassium 4.5 mmol/L (3.6-5.2) 12/27/16 16:32 A-a O2 Difference 469.0 mm/Hg 12/29/16 09:22 Respiratory Index 2.3 12/29/16 09:22 Hgb O2 Saturation 96.9 % (95.0-98.0) 12/29/16 09:22 Sodium 139.0 mmol/l (132-148) 12/27/16 16:32 Chloride 104.0 mmol/L (98-107) 12/27/16 16:32 Glucose 226 mg/dl (65-105) H 12/27/16 16:32 Lactate 2.2 mmol/L (0.7-2.1) H 12/27/16 16:32 Vent Mode Bipap 12/29/16 09:22 FiO2 100.0 % 12/29/16 09:22 Inspiratory BiPAP 10 12/29/16 09:22 Expiratory BiPAP 5 12/29/16 09:22 Sodium 133 mmol/L (132-148) 01/06/17 06:54 Potassium 3.9 mmol/L (3.6-5.2) 01/06/17 06:54 Chloride 95 mmol/L (98-107) L 01/06/17 06:54 Carbon Dioxide 27 mmol/L (22-30) 01/06/17 06:54 Anion Gap 15 (10-20) 01/06/17 06:54 BUN 19 mg/dL (7-17) H 01/06/17 06:54 Creatinine 0.6 MG/DL (0.7-1.2) L 01/06/17 06:54 Est GFR ( Amer) > 60 01/06/17 06:54 Est GFR (Non-Af Amer) > 60 01/06/17 06:54 POC Glucose (mg/dL) 321 mg/dL (65-110) H 01/06/17 12:43 Random Glucose 206 mg/dL (65-105) H 01/06/17 06:54 Hemoglobin A1c 8.7 % (4.2-6.5) H 12/28/16 07:53 Calcium 9.3 mg/dl (8.6-10.4) 01/06/17 06:54 Phosphorus 3.4 mg/dL (2.5-4.5) 01/02/17 06:47 Magnesium 1.7 mg/dL (1.6-2.3) 01/02/17 06:47 Total Bilirubin 0.5 mg/dL (0.2-1.3) 01/06/17 06:54 AST 16 U/L (14-36) 01/06/17 06:54 ALT 28 U/L (9-52) 01/06/17 06:54 Alkaline Phosphatase 69 U/L (38-126) 01/06/17 06:54 Total Creatine Kinase < 20 U/L (30-135) L 12/29/16 19:16 CK-MB (Mass) 1.16 ng/mL (0.0-3.38) 12/29/16 19:16 Troponin I 0.1380 ng/mL (0.00-0.120) H* 12/30/16 06:40 Troponin I, Quant 0.1510 ng/mL (0.00-0.120) H* 12/29/16 19:16 NT-Pro-B Natriuret Pep 1530 pg/mL (0-900) H 12/27/16 16:12 Total Protein 7.2 g/dL (6.3-8.3) 01/06/17 06:54 Albumin 3.4 g/dL (3.5-5.0) L 01/06/17 06:54 Globulin 3.8 gm/dL (2.2-3.9) 01/06/17 06:54 Albumin/Globulin Ratio 0.9 (1.0-2.1) L 01/06/17 06:54 Triglycerides 121 mg/dL (0-149) 12/28/16 07:53 Cholesterol 170 mg/dL (0-199) 12/28/16 07:53 LDL Cholesterol Direct 119 mg/dL (0-129) 12/28/16 07:53 HDL Cholesterol 34 mg/dL (30-70) 12/28/16 07:53 Procalcitonin 0.05 NG/ML (0.19-0.49) L 12/29/16 11:27 Thyroxine (T4) 9.57 ug/dL (5.5-11.0) 12/27/16 16:12 TSH 3rd Generation 1.01 mIU/L (0.46-4.68) 12/27/16 16:12 Venous Blood Potassium 4.5 mmol/L (3.6-5.2) 12/27/16 16:32 - Hospital Course Hospital Course: 56 F with PMHx of NIDM, presents to the ED with SOB and sharp chest pain. As per son she started to have this pain early this morning when she was at [employer]. She felt that her heart was racing faster. She denied any previous symptoms of this. Patient just returned from recent travel from [place]. Her chest pain and SOB became so severe she was brought to the ED. Admitted to SOB, chest pain, nausea, diaphoresis, weakness, decrease in sensation. Denied fever, chills, headache, abdominal pain, v/d/c, or urinary symptoms. In ED: CBC, EKG, EDUARDO, CXR - were ordered. Patient was in Atrial Fibrillation on EKG: @ 120BPM, with positive troponins, and elevated BNP. Patient was given ASA, Lovanox, Cardizem X 1 dose, Lasix, requested Vapotherm. Dr. Robbins called. Orders placed for Lovenox, Lasix, Coreg PO, Echo in AM, possible Cath in AM. Patient was seen by Dr. Robbins the Supervisor [employer] who started the patient on Lasix , Carvedilol, ARB's, Eliquis and planned on a cardiac cath when she was more stable. A cath was planned for the next day but on arrival to the laboratory supervisor the patient became tacypnic and tachycardic so the patient was transferred to the ICU and the cath was cancelled The patient was assed by Dr. Vega in the ICU who angelica kim her on BiPAP, a cardizem drip, lasix, lopressor, crestor, and got an ECHO that showed an EF of 83%. Dr. Jacob was consulted for severe valvular disease Dr. Woods was consulted for R. shoulder pain. Her Xray showed no fracture or dislocation. We gave her tramadol for the pain. She needs physical therapy to resolve this problem. They tried to get an MRI of the shoulder buyt the patient became to anxious and did not complete the study. The ICU started the patient on PO Cardizem and continued the drip A CT angio was negative for PE Patient underwent a cardiac cath that showed normal coronaries and a normal EF, Advises by Dr. Jacob (cards) to continue cardizem and long-term anticoag for the Afib, and to continue ambulation The patient returned to the floor and was seen again by me and the rest of the medical team. We continued the lasix and considered doing a thoracentesis but a repeat chest xray showed improving CHF and less fluid so we continued medical managment The patient was ready for discharge on 01/06 in a stable condition She has an appointment set up in the clinic on wednesday01/11/17 at 1pm. We printed out her medical records so she can take them with her to [place] to folow up with a doctor. We told her the extreme importance to continue her medication and pursue close follow up - Date & Time of H&P Date of H&P: 12/27/16 Time of H&P: 18:08 Discharge Exam - Head Exam Head Exam: ATRAUMATIC, NORMAL INSPECTION, NORMOCEPHALIC - Eye Exam Eye Exam: EOMI - Respiratory Exam Respiratory Exam: NORMAL BREATHING PATTERN - GI/Abdominal Exam GI & Abdominal Exam: Normal Bowel Sounds, Soft. absent: Distended, Firm, Tenderness - Neurological Exam Neurological exam: Alert, Altered, Oriented x3 - Psychiatric Exam Psychiatric exam: Normal Affect, Normal Mood - Skin Skin Exam: Dry, Intact, Normal Color, Warm Discharge Plan - Discharge Medications Prescriptions: Atorvastatin [Lipitor] 40 mg PO DAILY #30 tab Digoxin [Lanoxin] 0.25 mg PO DAILY@1800 #30 tab diltiaZEM [Cardizem] 90 mg PO Q6H #120 tab Furosemide [Lasix] 20 mg PO DAILY #30 tablet glyBURIDE [Micronase] 5 mg PO BID #60 tab metFORMIN [glucOPHAGE] 500 mg PO TID #90 tab - Follow Up Plan Condition: STABLE Disposition: HOME/ ROUTINE Instructions: Diltiazem (By mouth), Digoxin (By mouth), Furosemide (By mouth), Glyburide (By mouth), Metformin (By mouth), Atorvastatin (By mouth), Apixaban ( By mouth), Heart Failure (DC), Atrial Fibrillation (DC), Heart Healthy Diet (DC) , Diabetic Foot Care (DC), Basic Carbohydrate Counting (DC), Meal Planning with the Plate Method (DC), Meal Planning with Diabetes Exchanges (DC) Additional Instructions: The following instructions were explained to patient in Frisian: 1). Daughter is to schedule appointment with the [facility] located on Floor B of this hospital. Please schedule this appointment to take place in the next 7 to 10 days before you leave the hospital today. They will help you to coordinate your care. 2). Please have the following medications filled at either [facility] or [facility]: Digoxin 0.25 mg, 1 tablet by mouth once a day (9 AM), Disp #30, NO refills Cardizem 90 mg, 1 tablet by mouth 4 times a day (7 AM, 12 PM, 5 PM, and 10 PM), Disp #120, NO refills Lasix 20 mg, 1 tablet by mouth once a day (9 AM), Disp #30, NO refills Glyburide 5 mg, 1 tablet by mouth twice a day (breakfast and dinner), Disp #60 Metformin 500 mg, 1 tablet by mouth three times a day (breakfast, lunch, and dinner), Disp #90, NO refills Lipitor 40 mg, 1 tablet by mouth once a day (dinner), Disp #30, NO refills 3). You were provided with the following medication prior to your discharge. Please take as directed: Eliquis 5 mg, 1 tablet by mouth twice a day (breakfast and dinner), Disp #60, NO refills Eliquis is a blood thinner that is going to keep your blood thin to help prevent blood clots that can form because of your abnormal heart rhythm. Please be careful concerning falls as this can cause severe bleeding. 4). You stated that you will be leaving for [place] in 2 weeks. Please bring this paper with you to show your doctor in [place]. 5). Please schedule follow up with Orthopedic Physician Dr. Woods [phone] in 1 week for re-evaluation of your Right Shoulder. You will eventually need an MRI of your Right Shoulder to make sure that there is not a tear there. 6). Make sure to take a multivitamin once a day. You do not need a prescription to purchase this. You can ask the pharmacist at the [facility] or [facility] pharmacy to recommend a multivitamin for you. 7). Please eat 3 meals a day. 8). Stay well hydrated with water. 9). Please take care, be well, and have safe trip back to [place]. Referrals: [facility] [Outside] Clinical Quality Measures - CQM - Stroke Antithrombotic Prescribed: Yes Anticoagulation Prescribed for Atrial Flutter, Atrial Fibrillation and History of:: Yes Statin prescribed: Yes - CQM - Heart Failure Ejection Fraction: 40 % or Greater Left Ventricular Function to be assessed after discharge: No PANCHO Inhibitor Prescribed: No Contraindication/Reason for not providing: Low BP Beta-Aspen Prescribed: None Contraindication/Reason for not providing: Low BP Angiotensin II Receptor Aspen Prescribed: No Contraindication/Reason for not providing: Low BP AnticoagulationTherapy for Atrial Fibrillation/Atrialflutter: Yes Aldosterone Antagonist Prescribed: No Contraindication/Reason for not providing: not needed Hydralazine Nitrate Prescribed: No Contraindication/Reason for not providing: not needed Implantable Cardioverter Defibrillator Therapy: No Contraindication/Reason for not providing: not needed Cardiac Resynchronization Therapy Prescribed: No Contraindication/Reason for not providing: not needed Will be discharged to: Home Follow Up Date (must be within 7 days from discharge): 01/01/17 Follow Up Time: 13:00 - Date & Time of Discharge Summary Date of Discharge Summary: 01/06/17 Time of Discharge Summary: 14:49 <John Osborn - Last Filed: 01/06/17 18:35> Provider - Provider Date of Admission: 12/27/16 17:33 Attending physician: John Osborn MD Hospital Course - Lab Results Lab Results: Micro Results 01/03/17 01:43 Naris MRSA Culture - Final MRSA NOT DETECTED 12/29/16 09:54 Nose MRSA Culture (Admit) - Final MRSA NOT DETECTED Most Recent Lab Values WBC 9.9 K/uL (4.8-10.8) 01/06/17 06:54 RBC 4.35 Mil/uL (3.80-5.20) 01/06/17 06:54 Hgb 12.8 g/dL (11.0-16.0) 01/06/17 06:54 Hct 37.0 % (34.0-47.0) 01/06/17 06:54 MCV 85.0 fL (81.0-99.0) 01/06/17 06:54 MCH 29.3 pg (27.0-31.0) 01/06/17 06:54 MCHC 34.5 g/dL (33.0-37.0) 01/06/17 06:54 RDW 13.5 % (11.5-14.5) 01/06/17 06:54 Plt Count 195 K/uL (130-400) 01/06/17 06:54 MPV 9.0 fL (7.2-11.7) 01/06/17 06:54 Neut % (Auto) 61.4 % (50.0-75.0) 01/06/17 06:54 Lymph % (Auto) 30.1 % (20.0-40.0) 01/06/17 06:54 [place]quette % (Auto) 5.9 % (0.0-10.0) 01/06/17 06:54 Eos % (Auto) 2.2 % (0.0-4.0) 01/06/17 06:54 Baso % (Auto) 0.4 % (0.0-2.0) 01/06/17 06:54 Neut # 6.1 K/uL (1.8-7.0) 01/06/17 06:54 Lymph # 3.0 K/uL (1.0-4.3) 01/06/17 06:54 Marquette # 0.6 K/uL (0.0-0.8) 01/06/17 06:54 Eos # 0.2 K/uL (0.0-0.7) 01/06/17 06:54 Baso # 0.0 K/uL (0.0-0.2) 01/06/17 06:54 PT 12.2 SECONDS (9.7-12.2) 12/31/16 11:26 INR 1.1 12/31/16 11:26 APTT 48 SECONDS (21-34) H 12/31/16 11:26 D-Dimer, Quantitative 532 ng/mlDDU (0-243) H 12/27/16 16:12 Puncture Site Lr 12/29/16 09:22 pCO2 34 mm/Hg (35-45) L 12/29/16 09:22 pO2 202 mm/Hg (80-100) H 12/29/16 09:22 HCO3 23.6 mmol/L (21-28) 12/29/16 09:22 ABG pH 7.42 (7.35-7.45) 12/29/16 09:22 ABG Total CO2 23.1 mmol/L (22-28) 12/29/16 09:22 ABG O2 Saturation 99.8 % (95-98) H 12/29/16 09:22 ABG Base Excess -1.7 mmol/L (-2.0-3.0) 12/29/16 09:22 ABG Hemoglobin 14.4 g/dL (11.7-17.4) 12/29/16 09:22 ABG Carboxyhemoglobin 1.7 % (0.5-1.5) H 12/29/16 09:22 POC ABG HHb (Measured) 0.2 % (0.0-5.0) 12/29/16 09:22 ABG Methemoglobin 1.2 % (0.0-3.0) 12/29/16 09:22 Addi Test Pos 12/29/16 09:22 VBG pH 7.38 (7.32-7.43) 12/27/16 16:32 VBG pCO2 40 mmHg (40-60) 12/27/16 16:32 VBG HCO3 23.0 mmol/L 12/27/16 16:32 VBG Total CO2 24.9 mmol/L (22-28) 12/27/16 16:32 VBG O2 Sat (Calc) 69.0 % (40-65) H 12/27/16 16:32 VBG Base Excess -1.3 mmol/L (0.0-2.0) L 12/27/16 16:32 VBG Potassium 4.5 mmol/L (3.6-5.2) 12/27/16 16:32 A-a O2 Difference 469.0 mm/Hg 12/29/16 09:22 Respiratory Index 2.3 12/29/16 09:22 Hgb O2 Saturation 96.9 % (95.0-98.0) 12/29/16 09:22 Sodium 139.0 mmol/l (132-148) 12/27/16 16:32 Chloride 104.0 mmol/L (98-107) 12/27/16 16:32 Glucose 226 mg/dl (65-105) H 12/27/16 16:32 Lactate 2.2 mmol/L (0.7-2.1) H 12/27/16 16:32 Vent Mode Bipap 12/29/16 09:22 FiO2 100.0 % 12/29/16 09:22 Inspiratory BiPAP 10 12/29/16 09:22 Expiratory BiPAP 5 12/29/16 09:22 Sodium 133 mmol/L (132-148) 01/06/17 06:54 Potassium 3.9 mmol/L (3.6-5.2) 01/06/17 06:54 Chloride 95 mmol/L (98-107) L 01/06/17 06:54 Carbon Dioxide 27 mmol/L (22-30) 01/06/17 06:54 Anion Gap 15 (10-20) 01/06/17 06:54 BUN 19 mg/dL (7-17) H 01/06/17 06:54 Creatinine 0.6 MG/DL (0.7-1.2) L 01/06/17 06:54 Est GFR ( Amer) > 60 01/06/17 06:54 Est GFR (Non-Af Amer) > 60 01/06/17 06:54 POC Glucose (mg/dL) 321 mg/dL (65-110) H 01/06/17 12:43 Random Glucose 206 mg/dL (65-105) H 01/06/17 06:54 Hemoglobin A1c 8.7 % (4.2-6.5) H 12/28/16 07:53 Calcium 9.3 mg/dl (8.6-10.4) 01/06/17 06:54 Phosphorus 3.4 mg/dL (2.5-4.5) 01/02/17 06:47 Magnesium 1.7 mg/dL (1.6-2.3) 01/02/17 06:47 Total Bilirubin 0.5 mg/dL (0.2-1.3) 01/06/17 06:54 AST 16 U/L (14-36) 01/06/17 06:54 ALT 28 U/L (9-52) 01/06/17 06:54 Alkaline Phosphatase 69 U/L (38-126) 01/06/17 06:54 Total Creatine Kinase < 20 U/L (30-135) L 12/29/16 19:16 CK-MB (Mass) 1.16 ng/mL (0.0-3.38) 12/29/16 19:16 Troponin I 0.1380 ng/mL (0.00-0.120) H* 12/30/16 06:40 Troponin I, Quant 0.1510 ng/mL (0.00-0.120) H* 12/29/16 19:16 NT-Pro-B Natriuret Pep 1530 pg/mL (0-900) H 12/27/16 16:12 Total Protein 7.2 g/dL (6.3-8.3) 01/06/17 06:54 Albumin 3.4 g/dL (3.5-5.0) L 01/06/17 06:54 Globulin 3.8 gm/dL (2.2-3.9) 01/06/17 06:54 Albumin/Globulin Ratio 0.9 (1.0-2.1) L 01/06/17 06:54 Triglycerides 121 mg/dL (0-149) 12/28/16 07:53 Cholesterol 170 mg/dL (0-199) 12/28/16 07:53 LDL Cholesterol Direct 119 mg/dL (0-129) 12/28/16 07:53 HDL Cholesterol 34 mg/dL (30-70) 12/28/16 07:53 Procalcitonin 0.05 NG/ML (0.19-0.49) L 12/29/16 11:27 Thyroxine (T4) 9.57 ug/dL (5.5-11.0) 12/27/16 16:12 TSH 3rd Generation 1.01 mIU/L (0.46-4.68) 12/27/16 16:12 Venous Blood Potassium 4.5 mmol/L (3.6-5.2) 12/27/16 16:32 Attending/Attestation - Attestation I have personally seen and examined this patient.: Yes I have fully participated in the care of the patient.: Yes I have reviewed all pertinent clinical information, including history, physical exam and plan: Yes Notes (Text): 01/06/17 18:35 Please also see my Progress Note
[2017-01-06 15:29] VITALS: BP 117/72; PULSE 72; TEMP 97.8; O2SAT 96
--- NOTE | 2017-01-06 17:33 | PCM.HF ---
Heart Failure Core Measure - Heart Failure Ejection Fraction: 40 % or Greater PANCHO Inhibitor Prescribed: No Contraindication/Reason for not providing: EF >40 Beta-Aspen Prescribed: None Contraindication/Reason for not providing: EF >40 Angiotensin II Receptor Aspen Prescribed: No Contraindication/Reason for not providing: EF >40 AnticoagulationTherapy for Atrial Fibrillation/Atrialflutter: Yes Aldosterone Antagonist Prescribed: No Contraindication/Reason for not providing: EF >40 Hydralazine Nitrate Prescribed: No Contraindication/Reason for not providing: EF >40 Implantable Cardioverter Defibrillator Therapy: No Contraindication/Reason for not providing: EF >40 Cardiac Resynchronization Therapy Prescribed: No Contraindication/Reason for not providing: EF >40 - Follow up Will be discharged to: Home (PT PLANS ON TRAVEL BACK TO [place]; INSTRUCTED TO F/ U FIRST WITH CLINIC) Follow Up Date (must be within 7 days from discharge): 01/11/17 Follow Up Time: 09:00
--- NOTE | 2017-01-10 04:17 | CARDCATH ---
PROCEDURE DATE: 01/01/2017 PROCEDURES PERFORMED: 1. Left heart catheterization. 2. Coronary angiogram. REFERRING PHYSICIAN: Dr. Dwayen Osborne. PERFORMING PHYSICIAN: Juan Jose Jacob MD CLINICAL INDICATIONS: 1. Chest pain. 2. Hypertension. 3. Hyperlipidemia. 4. Abnormal troponin. PROCEDURE: After informed consent, the patient was prepped and draped in the usual sterile fashion. A 2% lidocaine was given in the right groin for local anesthesia. Using micropuncture technique, 6-Belarus[place] sheath was introduced into right common femoral artery. Using the usual diagnostic catheter, left heart catheterization and coronary angiogram was performed. The patient tolerated the procedure well. FINDINGS: 1. Left main coronary artery is patent. 2. LAD and diagonal branches are patent. 3. Left circumflex and obtuse marginal branch are patent. 4. Right coronary artery is dominant and patent. 5. LV ejection fraction is 60%. No wall motion abnormalities noted. EDP is 20. No gradient across the aortic valve. IMPRESSION: 1. Normal coronaries. 2. Normal left ventricular systolic function. PLAN: Recommend medical management. Juan Jose Jacob MD
== END 2017-01-06 16:05 | disposition home or self-care (01) | DRG 281 ==
LOC: C.ER 13:37 → C.9E 17:33 → C.6T 23:42 → C.9I 12-29 08:19 → C.6T 01-03 01:50
PROVIDERS: ADMIT Family Medicine; ATTEND Family Medicine
PROC: 4A023N7 Measurement of Cardiac Sampling and Pressure, Left Heart, Percutaneous Approach (ICD-10-PCS; principal; 2017-01-01)
PROC: B2151ZZ Fluoroscopy of Left Heart using Low Osmolar Contrast (ICD-10-PCS; 2017-01-01)
PROC: B2111ZZ Fluoroscopy of Multiple Coronary Arteries using Low Osmolar Contrast (ICD-10-PCS; 2017-01-01)
DX: I21.4 Non-ST elevation (NSTEMI) myocardial infarction (principal); I50.9 Heart failure, unspecified; I08.3 Combined rheumatic disorders of mitral, aortic and tricuspid valves; I48.91 Unspecified atrial fibrillation; I27.2 Other secondary pulmonary hypertension; J98.11 Atelectasis; E87.1 Hypo-osmolality and hyponatremia; E11.9 Type 2 diabetes mellitus without complications; I37.1 Nonrheumatic pulmonary valve insufficiency; R09.02 Hypoxemia; Z53.9 Procedure and treatment not carried out, unspecified reason; Z79.01 Long term (current) use of anticoagulants; Z79.899 Other long term (current) drug therapy; Z90.49 Acquired absence of other specified parts of digestive tract